=== PATIENT | female | born 1955 | race Caucasian/White ===

== ENCOUNTER 2022-10-25 08:31 | Outpatient (REF) | payer MEDICARE, SELFPAY ==
[2022-10-25 11:17] LABS: MANUAL DIFF FLAG NO
[2022-10-25 11:35] LABS: Estimated Average Glucose 194 mg/dL; Hemoglobin A1c % 8.4 %
[2022-10-25 11:54] LABS: Basophils Absolute Auto 0.1 X10*3/uL (0.0-0.2); Basophils Percent Auto 0.9 % (0-2); Eosinophils Absolute Auto 0.4 X10*3/uL (0.0-0.4); Eosinophils Percent Auto 5.9 % (0-4); Hematocrit 40.7 % (37.0-47.0); Imm Gran Abs Auto 0.04 X10*3/uL (0.00-0.03); Imm Gran Pct Auto 0.6 % (0.0-0.4); Lymphocytes Percent Auto 30.2 % (20-40); Mean Corpuscular HGB Conc 31.9 g/dl (31.0-35.0); Mean Corpuscular Volume 97.1 fL (80.0-98.0); Mean Platelet Volume 10.2 fL (9.4-12.3); Monocytes Absolute Auto 0.5 X10*3/uL (0.1-1.2); Monocytes Percent Auto 8.4 % (2-11); Neutrophils Absolute Auto 3.5 x10*3/uL (2.0-8.3); Platelet Count 286 X10*3/uL (160-400); Red Blood Count 4.19 X10*6/uL (4.20-5.50); Red Cell Distribution Width 13.2 % (11.0-16.0); White Blood Count 6.5 X10*3/uL (4.8-10.8)
[2022-10-25 12:16] LABS: Creatinine Urine 100.54 mg/dL; Microalbum/Creatinine Ratio Ur 8.9 ug/mg cr
[2022-10-25 12:28] LABS: Alanine Aminotransferase 21 U/L (0-31); Alkaline Phosphatase 79 U/L (39-117); Anion Gap 14 (12-20); Aspartate Amino Transferase 13 U/L (5-31); Bilirubin Total 0.5 mg/dL (0.0-1.0); Blood Urea Nitrogen 21 mg/dL (9-16); Calcium 9.3 mg/dL (8.4-10.2); Carbon Dioxide 24 mmol/L (22-29); Chloride 109 mmol/L (96-108); Cholesterol 232 mg/dL; Estimated Glomerular Filt Rate > 60; Glucose Fasting 189 mg/dL (60-99); HDL Cholesterol 47 mg/dL; LDL Cholesterol Calculated 160 mg/dl; Potassium 4.5 mmol/L (3.3-5.1); Sodium 142 mmol/L (135-145); Total Protein 6.7 g/dL (6.5-8.0); Triglycerides 125 mg/dL
== END 2022-10-25 08:32 | disposition home or self-care (01) ==
LOC: HO.MANLDS 08:31
PROVIDERS: Visit Provider Physician Assistant
DX: E13.9 Other specified diabetes mellitus without complications (principal)
CPT/HCPCS: 36415; 80053; 80061; 82043; 83036; 85025

== ENCOUNTER 2023-04-11 08:46 | Outpatient (REF) | payer MEDICARE, SELFPAY ==
[2023-04-11 14:14] LABS: Alanine Aminotransferase 19 U/L (0-31); Albumin Level 4.2 g/dL (3.5-5.0); Alkaline Phosphatase 61 U/L (39-117); Anion Gap 12 (12-20); Aspartate Amino Transferase 16 U/L (5-31); Bilirubin Total 0.3 mg/dL (0.0-1.0); Blood Urea Nitrogen 33 mg/dL (9-16); Calcium 10.3 mg/dL (8.4-10.2); Carbon Dioxide 24 mmol/L (22-29); Chloride 111 mmol/L (96-108); Estimated Glomerular Filt Rate 42; Glucose Random 130 mg/dL (60-115); Potassium 4.7 mmol/L (3.3-5.1); Sodium 142 mmol/L (135-145); Total Protein 7.1 g/dL (6.5-8.0)
[2023-04-11 14:35] LABS: Estimated Average Glucose 123 mg/dL; Hemoglobin A1c % 5.9 % (<6.0)
== END 2023-04-11 08:47 | disposition home or self-care (01) ==
LOC: HO.MANLDS 08:46
PROVIDERS: Visit Provider Physician Assistant
DX: E11.9 Type 2 diabetes mellitus without complications (principal)
CPT/HCPCS: 36415; 80053; 83036

== ENCOUNTER 2024-06-14 09:17 | Outpatient (REF) | payer MEDICARE, SELFPAY ==
[2024-06-14 10:49] LABS: Basophils Absolute Auto 0.1 X10*3/uL (0.0-0.2); Eosinophils Absolute Auto 0.3 X10*3/uL (0.0-0.4); Eosinophils Percent Auto 4.5 % (0-4); Hematocrit 40.1 % (37.0-47.0); Imm Gran Abs Auto 0.03 X10*3/uL (0.00-0.03); Imm Gran Pct Auto 0.4 % (0.0-0.4); Lymphocytes Absolute Auto 2.4 X10*3/uL (1.2-4.9); Lymphocytes Percent Auto 34.4 % (20-40); MANUAL DIFF FLAG NO; Mean Corpuscular HGB Conc 32.4 g/dl (31.0-35.0); Mean Corpuscular Hemoglobin 30.9 pg (27.0-33.0); Mean Corpuscular Volume 95.2 fL (80.0-98.0); Mean Platelet Volume 9.7 fL (9.4-12.3); Monocytes Absolute Auto 0.5 X10*3/uL (0.1-1.2); Monocytes Percent Auto 7.6 % (2-11); Neutrophils Absolute Auto 3.6 x10*3/uL (2.0-8.3); Neutrophils Percent Auto 52.1 % (45-73); Platelet Count 289 X10*3/uL (160-400); Red Blood Count 4.21 X10*6/uL (4.20-5.50); Red Cell Distribution Width 12.8 % (11.0-16.0); White Blood Count 6.9 X10*3/uL (4.8-10.8)
[2024-06-14 11:33] LABS: Estimated Average Glucose 174 mg/dL; Hemoglobin A1c % 7.7 % (<6.0); Total Hemoglobin (HGBA1C) 3376.9875 umol/L
[2024-06-14 11:51] LABS: Alanine Aminotransferase 26 U/L (0-31); Albumin Level 4.3 g/dL (3.5-5.0); Alkaline Phosphatase 71 U/L (39-117); Anion Gap 17 (12-20); Aspartate Amino Transferase 25 U/L (5-31); Bilirubin Total 0.5 mg/dL (0.0-1.0); Blood Urea Nitrogen 26 mg/dL (9-16); Carbon Dioxide 19 mmol/L (22-29); Chloride 108 mmol/L (96-108); Cholesterol 236 mg/dL (<200); Estimated Glomerular Filt Rate 59; Glucose Random 138 mg/dL (60-115); HDL Cholesterol 49 mg/dL (>40); LDL Cholesterol Calculated 160 mg/dL (<100); Potassium 4.6 mmol/L (3.3-5.1); Sodium 139 mmol/L (135-145); Total Protein 7.6 g/dL (6.5-8.0); Triglycerides 136 mg/dL (<150)
== END 2024-06-14 09:18 | disposition home or self-care (01) ==
LOC: HO.LAB 09:17
PROVIDERS: PCP Internal Medicine; Visit Provider Physician Assistant
DX: E11.9 Type 2 diabetes mellitus without complications (principal)
CPT/HCPCS: 36415; 80053; 80061; 83036; 85025

== ENCOUNTER 2024-09-16 14:37 | Outpatient (REF) | payer MEDICARE, SELFPAY ==
--- OUTSIDE RECORDS SUMMARY | 2024-09-16 15:56 | XMS_ITS ---
Author Organization [facility] Address [address] [address] Care Team Providers Care Earthmoving Labourer Name Role Phone JOSEPH HARDWICK Primary Care Provider BRIGETTE Addison [phone] REASON FOR VISIT Urine results Encounters Encounter Location Date Provider Diagnosis [facility] [address] [place] [phone] 06/19/2023 BRIGETTE FERNANDO Plan Of Treatment No Information Progress Notes * JOSE RAFAEL URBINAEDOB:1955 (68 yo F)Acc No.[id number]:06/19/2023 Patient:?KIZZY URBINA :1955???Age:68 Y???Sex:Female Address:[address] [facility], [place], [address] * true * Date:? Generated for Apolinari darian/Jeanine/eTransmitting on:?09/16/2024 03:56 PM EST
--- OUTSIDE RECORDS SUMMARY | 2024-09-16 15:56 | XMS_ITS ---
Author Organization [facility] Address [address] [address] Care Team Providers Care Calender Inspector Name Role Phone JOSEPH HARDWICK Primary Care Provider BRIGETTE Addison [phone] REASON FOR VISIT ? UTI Encounters Encounter Location Date Provider Diagnosis [facility] [address] [place] [phone] 06/16/2023 BRIGETTE FERNANDO Plan Of Treatment No Information Progress Notes * JOSE RAFAEL URBINAEDOB:1955 (68 yo F)Acc No.[id number]:06/16/2023 Patient:?KIZZY URBINA :1955???Age:68 Y???Sex:Female Address:[address] [facility], [place], [address] * true * Date:? Generated for Apolinari darian/Jeanine/eTransmitting on:?09/16/2024 03:56 PM EST
--- OUTSIDE RECORDS SUMMARY | 2024-09-16 15:56 | XMS_ITS | Encounter Summary ---
Author Organization [facility] Address [address] [place] [address] Care Team Providers Care Installation And Service Technician Name Role Phone Richie Cora NOLEN Primary Care Provider [phone] Encounter Details Date Type Department Care Team (Late st Contact Info) Description 05/18/2021 Abstract [facility] [place] [address] [place], [place] [id number] External, Provider Social History Tobacco Use Types Packs/Day Years Used Date Smoking Tobacco: Former Cigarettes Q uit: 1982 Smokeless Tobacco: Never Alcohol Use Standard Drinks/Week Comments Never 0 (1 standard drink = 0.6 oz pur e alcohol) AUDIT-C Answer Date Recorded Q1: How often do you have a drink containing alc ohol? Never 05/07/2020 Average Number of Drinks Not on file 020 Frequency of Binge Drinking Not on file 08/2019 PHQ-2 Answer Date Recorded PHQ-2 Total Score 0 05/07/2020 Comments No Sex and Gender Information Value Date Recorded Sex Assigned at Not on file Legal Sex Female 11:01 AM EDT Gender Identity Not on file Sexual Orientation Not on file documented as of this encounter Plan of Treatment Not on file documented as of this encounter Visit Diagnoses Not on filedocumented in this encounter Additional Health Concerns Infection Onset Date Last Indicated Resolved Time Rotavirus 11/12/2021 11/12/2021 11/13/2021 7:18 PM EDT Assessment Noted Time PHQ-9 Depression Total Score: 0 05/07/20 10:54 AM EDT documented as of this encounter Care Teams Installation And Service Technician Relationship Specialty Start Date End Date Cora Quiroz APRN [address] [place] [address] [place] [address] PCP - General Family Medicine 05/07/20 05/26/22 documented as of this encounter
--- OUTSIDE RECORDS SUMMARY | 2024-09-16 15:56 | XMS_ITS | Patient Health Record ---
Author Organization [facility] Address [address] [facility] [address] [place] [address] Care Team Providers Care Automotive Buyer Name Role Phone JOSEPH HARDWICK Primary Care Provider BRIGETTE Addison Unavailable [phone] Allergies No Known Allergies Reason For Referral No Information Medications Medication SIG (Take, Route, Frequency, Duration) Notes Start Date End Date Status Bactrim DS 800-160 MG 1 tablet Orally Tw ice a day for 3 days 06/16/2023 Active Estrace 0.1 MG/GM 1 gram Vaginal twice weekly for 90 days Active Clotrimazole-Betamethasone 1-0.05 % 1 application Externally Twice a day for 10 days 06/13/2023 Active ALPRAZolam 1 MG 1/2 tablet Orally On ce a day Active Glimepiride 1 MG 1 tablet with breakf ast or the first main meal of the day Orally Once a day for 30 day(s) Active Lisinopril 20 MG 1 tablet Orally Once a day for 30 day(s) Active Propranolol HCl ER 160 MG 1 capsule Oral ly Once a day for 30 day(s) Active Gabapentin 100 MG 1 capsule Orally Onc e a day for 30 day(s) Active Social History Tobacco Use: Social History Observation Description Date Details (start date - stop date) Former Smoker NA - NA Tobacco Use/Smoking Question Answer Notes Are you a former smoker How long has it been since you last smoked? > 10 years Alcohol Screen (Audit-C) Question Answer Notes Did you have a drink containing alcohol in the p ast year? No Points 0 Interpretation Negative Sexual History Question Answer Notes Had sex in the past 12 months (vaginal, oral, or anal)? No Have you ever had a Sexually transmitted disease ? 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 Plan Of Treatment Pending Test Test Name Order Date Urinalysis 08/13/2019 PELVIC ULTRASOUND W/TRANSVAGINAL 020 Insurance Providers Payer Name Payer Address Payer Phone Subscriber Number Group Number Insured Name Patient Relationship to Insured Coverage Start Date Coverage End Date BCBS MEDICARE PPO [address] [place] [address] [phone] [id number] KIZZY URBINA Self - patient is the insured Medical (General) History Medical History History ICD Code Diverticulosis of intestine, part unspecified, without perforation or abscess without bleeding K57.90 Type 2 diabetes mellitus with unspecifie d complications E11.8 Headache R51 Essential (primary) hypertension I10 Surgical History Surgery Date(Month/Year) Appendectomy 1964 Tonsillectomy 1960's x 1 1985 Hysterectomy 1992 Breast Biopsy Colonoscopy 2013 Hospitalization History Reason Date(Month/Year) 1 Vaginal Delivery See Surgical Hx
--- OUTSIDE RECORDS SUMMARY | 2024-09-16 15:57 | XMS_ITS | Encounter Summary ---
Author Organization [facility] Address [address] [place] [address] Care Team Providers Care Range Mechanic Name Role Phone Richie Cora NOLEN Primary Care Provider [phone] Encounter Details Date Type Department Care Team (Late st Contact Info) Description 08/19/2021 Abstract [facility] [place] [address] [place], [place] [phone] External, Provider Social History Tobacco Use Types [...] documented as of this encounter Care Teams Range Mechanic Relationship Specialty Start Date End Date Cora Quiroz APRN [address] [place] [address] [place] [address] PCP - General Family Medicine 05/07/20 05/26/22 documented as of this encounter
--- OUTSIDE RECORDS SUMMARY | 2024-09-16 15:57 | XMS_ITS | Encounter Summary ---
Author Organization [facility] Address [address] [place] [address] Care Team Providers Care Dermatologist Managing Partner Name Role Phone Richie Cora TAMANNA Primary Care Provider [phone] Encounter Details Date Type Department Care Team (Late st Contact Info) Description 09/15/2021 Scanned Document [facility] [address] [address] External, Provider Social History Tobacco Use Types [...] documented as of this encounter Care Teams Dermatologist Managing Partner Relationship Specialty Start Date End Date Cora Quiroz APRN [address] [place] [address] [place] [address] PCP - General Family Medicine 05/07/20 05/26/22 documented as of this encounter
--- OUTSIDE RECORDS SUMMARY | 2024-09-16 15:57 | XMS_ITS ---
Author Organization [facility] Address [address] [facility] [address] [place] [address] Care Team Providers Care Commercial Roofer Name Role Phone JOSEPH HARDWICK Primary Care Provider BRIGETTE Addison Unavailable [phone] Allergies No Known Allergies Results Component Value Reference Range Notes Urinalysis Reviewed date:06/16/2023 02:50:57 PM Interpretation: Performing Lab: Notes/Report: NITRITE POS PH 5.0 PROTEIN TRACE S.G 1.015 WBC MOD GLUCOSE NEG KETONES NEG UROBILINOGEN NEG BILIRUBIN NEG BLOOD NEG URINE CULTURE Reviewed date:06/19/2023 08:35:38 AM Interpretation: Performing Lab:Testing performed or reported by [facility], a Service of [facility], [address] [place] [address] Akash Silverman MD, Dye Weigher Helper [facility]# [id number] Notes/Report: SPECIMEN DESCRIPTION URINE SPECIAL REQUESTS NONE CULTURE Mixed bacterial sierra a, indicative of urogenital contamination. REPORT STATUS FINAL 06/18/2023 REASON FOR VISIT ? UTI Medications Medication SIG (Take, Route, Frequency, Duration) Notes Start Date End Date Status ALPRAZolam 1 MG 1/2 tablet Orally On [...] e a day for 30 day(s) Active Bactrim DS 800-160 MG 1 tablet Orally Tw ice a day for 3 days 06/16/2023 Active Estrace 0.1 MG/GM 1 gram Vaginal twice weekly for 90 days Active Clotrimazole-Betamethasone 1-0.05 % 1 application Externally Twice a day for 10 days 06/13/2023 Active Social History Tobacco Use: Social History [...] ast year? No Points 0 Interpretation Negative Vital Signs Temperature 96.7 degrees Fahrenheit 06/16/20 23 Blood pressure systolic 100 mm Hg 06/16/20 23 Blood pressure diastolic 70 mm Hg 023 Height 66 in 06/16/2023 Weight 190 lbs 06/16/2023 BMI 30.66 kg/m2 06/16/2023 Encounters Encounter Location Date Provider Diagnosis [address] [address] 06/16/2023 BRIGETTE FERNANDO Dysuria R30.0 Assessments Encounter Date Diagnosis (ICD Code) Assessment Notes Treatment Notes Treatment Clinical Notes Section Notes 06/16/2023 Dysuria (ICD-10 - R30.0) plenty of fluids orally , AZO as needed , Tylenol 3-4 times a day as needed , Call if not better 06/16/2023 Other Plan Of Treatment Medication Medication Name Sig Start Date Stop Date Notes Bactrim DS 800-160 MG 1 tablet Orally Tw ice a day for 3 days 06/16/2023 Treatment Notes Assessment Notes Dysuria plenty of fluids ora lly , AZO as needed , Tylenol 3-4 times a day as needed , Call if not better Next Appt Details Follow Up: prn, Reason: Progress Notes * STELLA URBINASHAUNEDOB:1955 (68 yo F)Acc No.[id number]:06/16/2023 PROGRESS NOTES Patient:?KIZZY URBINA Provider:?BRIGETTE FERNANDO MD :1955???Age:68 Y???Sex:Female D ate:06/16/2023 Address:[address] [place] [address], [id number] Pcp:JOSEPH HARDWICK Subjective: * Chief Complaints: * ? UTI * HPI: ???SUBSEA ENGINEER (Problems):?68 year old female presents with c/o Urinary Tract Infection (symptoms of):?Describes problems as:?dysuria , mostly noted at the conclusion of voiding ?Date of onset:?about a week ago ?Onset and progression of problem:?has progressively worsened, has happened in the past ?Associated signs and symptoms:?None ? She reports the vaginal burning is improved, but now she has dysuria. ?She used AZO last night, but the urine still shows leuks. * ROS:?General/Constitutional:?Denies?Chills.?Denies?Fever.?Women Only:?Patient denies?new sexual partners.?Denies?Painful intercourse.?Denies?Vaginal discharge/itching.?Genitourinary:?Admits?Abdominal pain/swelling.?Denies?Blood in urine.?Admits?Difficulty urinating.?Admits?Frequent urination.?Denies?Pain in lower back.?Admits?Painful urination.? * Medical History:? * Behavioral Health Care Manager History:?/ Para?2/2.?Sexual activity?not currently sexually active.?Last Pap Smear:?2012.?Mammogram:?2018.?LMP and menses?Hyst.?Colonoscopy?2013.? * OB History:?Total pregnancies?2.?Total living children?2.?NVD?1.?(s)?1.? * Surgical History:?Appendecto my 1964Tonsillectomy 1960'sC-Section x 1 1985Hysterectomy 1993Breast Biopsy Colonoscopy 2013 * Hospitalization/Major Diagno stic Procedure:?1 Vaginal Delivery See Surgical Hx * Family History:?Mother: silverio barfield, heart stent.?Father: , mesothelioma, lung cancer.?1 sister(s) - healthy. .? * Social History:?Tobacco Use:?Tobacco Use/Smoking?Are you a?former smoker ?How long has it been since you last smoked??> 10 years ???Drugs/Alcohol:?Drugs?Have you used drugs other than those for medical reasons in the past 12 months??No ?Alcohol Screen (Audit-C)?Did you have a drink containing alcohol in the past year??No ?Points?0 ?Interpretation?Negative ???Miscellaneous:?Children: yes, 2. ?Exercise: yes, Occ walking. ?Home smoke detector use: yes. ?Living with: spouse. ?Marital status: . ?Natural support system: yes. ?Occupation: Retired. ?no Sexually active, monogamous relationship. * Medications:?TakingGabapenti n 100 MG Capsule 1 capsule Orally Once a dayPropranolol HCl ER 160 MG Capsule Extended Release 24 Hour 1 capsule Orally Once a dayLisinopril 20 MG Tablet 1 tablet Orally Once a dayGlimepiride 1 MG Tablet 1 tablet with breakfast or the first main meal of the day Orally Once a dayALPRAZolam 1 MG Tablet 1/2 tablet Orally Once a dayClotrimazole-Betamethasone 1-0.05 % Cream 1 application Externally Twice a dayEstrace 0.1 MG/GM Cream 1 gram Vaginal twice weeklyTaking Gabapentin 100 MG Capsule 1 capsule Orally Once a dayTaking Propranolol HCl ER 160 MG Capsule Extended Release 24 Hour 1 capsule Orally Once a dayTaking Lisinopril 20 MG Tablet 1 tablet Orally Once a dayTaking Glimepiride 1 MG Tablet 1 tablet with breakfast or the first main meal of the day Orally Once a dayTaking ALPRAZolam 1 MG Tablet 1/2 tablet Orally Once a dayTaking Clotrimazole-Betamethasone 1-0.05 % Cream 1 application Externally Twice a dayTaking Estrace 0.1 MG/GM Cream 1 gram Vaginal twice weekly * Allergies:?N.K.D.A.no[Allerg ies Verified] Objective: * Vitals:?Ht: 66 in, Wt:190 lb s, BMI:30.66 Index, BP:100/70 mm Hg, Temp:96.7 F. * Examination: ???General Examination: ?GENERAL APPEARANCE:? pleasant, well nourished, in no acute distress, supplier quality engineer present in room.?ABDOMEN:?soft, nontender, nondistended, bowel sounds present, no masses palpable, no hepatosplenomegaly.?BACK:?normal, no costovertebral angle tenderness.? Assessment: * Assessment: 1.?Dysuria - R30.0 (Primary) ? Plan: * Treatment: ? Value Reference Range ?CULTURE Mixed bacterial sierra a, indicative of urogenital contamination. - * ?REPORT STATUS FINAL 06/18/2023 - * ?SPECIAL REQUESTS NONE - * ?SPECIMEN DESCRIPTION URINE - * FERNANDOBRIGETTE She 06/19/2023 8 :33:25 AM > Message left on voicemail - urine contaminated, but she was treated with Bactrim. Advised to call if she is not better, for a repeat urine culture. Otherwise, if she is better, no need to call.This lab was reviewed by BRIEGTTE FERNANDO on 06/19/2023 at 08:35 AM EST ?LAB: Urinalysis* ? Value Reference Range ?NITRITE POS * ?PH 5.0 * ?PROTEIN TRACE * ?S.G 1.015 * ?WBC MOD * ?GLUCOSE NEG * ?KETONES NEG * ?UROBILINOGEN NEG * ?BILIRUBIN NEG * ?BLOOD NEG * ELIS Dorsey 06/16/2023 1:17:29 PM >FERNANDOBRIGETTE She 06/16/2023 2:50:29 PM > Notes: plenty of fluids orally , AZO as needed , Tylenol 3-4 times a day as needed , Call if not better??2.?Others? Start Bactrim DS Tablet, 800-160 MG, 1 tablet, Orally, Twice a day, 3 days, 6 Tablet, Refills 0. ? * Procedure Codes:? * Follow Up:?prn * Images: Billing Information: * Visit Code:? 49729 Office Visit, Est Pt., Level 3. * Procedure Codes:? * Sign off status: Completed true * Provider:?BRIGETTE FERNANDO MD Date:?2022 Generated for Rigo farmer/Jeanine/eTransmitting on:?09/16/2024 03:56 PM EST History and Physical Notes * HPI (History of Present Illness) Category Sub-Category Detail Notes Category Not es SUBSEA ENGINEER (Problems) Urinary Tract Infection (symptoms of): Describes problems as:: dysuria , mostly noted at the conclusion of voiding She reports the vaginal burning is improved, but now she has dysuria. She used AZO last night, but the urine still shows leuks. Date of onset:: about a week ago Onset and progression of pro blem:: has progressively worsened, has happened in the past Associated signs and symptoms:: None Examination Category Sub-Category Detail Notes Category Not es General Examination GENERAL APPEARANCE: pleasant , well nourished, in no acute distress, supplier quality engineer present in room ABDOMEN: soft, nontender, non distended, bowel sounds present, no masses palpable, no hepatosplenomegaly BACK: normal, no costovert ebral angle tenderness
--- OUTSIDE RECORDS SUMMARY | 2024-09-16 15:57 | XMS_ITS | Encounter Summary ---
Author Organization [facility] Address [address] [place] [address] Care Team Providers Care Spring Inspector Name Role Phone Richie Cora TAMANNA Primary Care Provider [phone] Encounter Details Date Type Department Care Team (Late st Contact Info) Description 09/13/2021 Scanned Document [facility] [address] [address] External, Provider Social History Tobacco Use Types [...] documented as of this encounter Care Teams Spring Inspector Relationship Specialty Start Date End Date Cora Quiroz APRN [address] [place] [address] [place] [address] PCP - General Family Medicine 05/07/20 05/26/22 documented as of this encounter
--- OUTSIDE RECORDS SUMMARY | 2024-09-16 15:57 | XMS_ITS | Clinical Summary ---
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 Use as instructed 50 strip 3 1 Active propranoloL LA (INDERAL LA) 160 mg 24 hr capsuleIndicatio ns:for migraines Take 1 capsule (160 mg total) by mouth daily. 90 capsule 1 2 Active lisinopriL (PRINIVIL,ZESTRI L) 20 mg tabletIndication s:Hypertension, unspecified type Take 1 tablet (20 mg total) by mouth daily. 90 tablet 1 2 Active SITagliptin (JANUVIA) 100 mg tabletIndication s:Type 2 diabetes mellitus without complication, without long-term current use of insulin (HC Code) (HC CODE) (HC Code) Take 1 tablet (100 mg total) by mouth daily. 90 tablet 1 2 Active dapagliflozin (FARXIGA) 5 mg tablet Take 1 tablet (5 mg total) by mouth daily. 90 tablet 1 2 Active ALPRAZolam (XANAX) 0.5 mg tabletIndication s:pt states she takes half Take 1 tablet (0.5 mg total) by mouth nightly. 90 tablet 2 Active gabapentin (NEURONTIN) 100 mg capsuleIndicatio ns:Nerve pain Take 1 capsule (100 mg total) by mouth 3 (three) times daily with meals. 90 capsule 1 2 Active glimepiride (AMARYL) 4 mg tabletIndication s:Type 2 diabetes mellitus without complication, without long-term current use of insulin (HC Code) (HC CODE) (HC Code) Take 1 tablet (4 mg total) by mouth daily before breakfast. 90 tablet 1 2 Active Active Problems No known active problems Immunizations Name Administration Dates Next Due COVID-19, MODERNA 12Y+, 0.5 mL 10/18/2020,2020 Influenza, high dose, quad, 0.7 mL, preservative free 05/27/2021,05/07/2020 Family History Medical History Relation Name Comments Arthritis Father Cancer Father Hearing loss Father Hypertension Father Kidney disease Father Diabetes Maternal Uncle Diabetes Mother Heart disease Mother High cholesterol Mother Hypertension Mother Drug abuse Son Relation Name Status Comments Father lung cancer (me sothelioma) Maternal Uncle Mother Son Social History Tobacco Use Types Packs/Day Years [...] Answer Date Recorded PHQ-2 Total Score 0 01/27/2022 Comments No Sex and Gender Information Value Date Recorded Sex Assigned at Not on file Legal Sex Female 11:01 AM EDT Gender Identity Not on file Sexual Orientation Not on file Last Filed Vital Signs Vital Sign Reading Time Taken Comments Blood Pressure 124/78 02/24/2022 11:45 AM EDT Pulse 80 02/24/2022 11:45 AM EDT Temperature 36.9 ??C (98.4 ??F) 02/24/2022 11:45 AM E DT Respiratory Rate 16 02/24/2022 11:45 AM EDT Oxygen Saturation 98% 02/24/2022 11:45 AM EDT Inhaled Oxygen Concentration - - Weight 111.1 kg (245 lb) 02/24/2022 11:45 AM EDT Height 165.1 cm (5' 5 ) 02/24/2022 11:45 AM EDT Body Mass Index 40.77 02/24/2022 11:45 AM EDT Plan of Treatment Health Maintenance Due Date Last Done Comments HIV screening 1968 Tetanus adult (Td q 10,TDAP once) 1975 Colon cancer screening, Colonoscopy 2000 Shingles vaccine (Shingrix) (1 of 2 - Shingrix (RZV) 2 Dose Standard Series) 2005 RSV Discussion (1 - Risk 60-74 years 1-dose series) 2015 Pneumo Vaccine 65+ (1 of 1 - PCV) 2020 Breast cancer screening 08/03/2023 08/03/20, 07/27/2020, 04/07/2019 Influenza vaccine 03/07/2024 05/27/2021, 05/07/2020 Covid-19 vaccine series ( season) 2024 06/22/2021, 10/18/2020, 09/20/2020 Diabetes screening 02/24/2025 02/24/2022, 0 01/12/2022, 11/25/2021, Additional history exists Lipid disorder screening 01/12/2027 01/12/2022, 1001/2020 Osteoporosis screening (bone density) Completed 07/27/2020 Hepatitis C screening Completed 01/12/2022 Cervical cancer screening Discontinued Meningococcal Vaccine Aged Out No fazal joaquina eligible based on patient's age to complete this topic Procedures Procedure Name Priority Date/Time Associated Diagnosis Comments POCT GLYCOSYLATED HEMOGLOBIN (HGBA1C), TOTAL Routine 02/24/2022 11:57 AM EDT Type 2 diabetes mellitus without complication, without long-term current use of insulin (HC Code) (HC CODE) (HC Code) LIPID PANEL Routine 01/12/2022 8:35 AM EDT Routine medical exam HEPATITIS C AB WITH REFLEX TO HCV PCR Routine 01/12/2022 8:35 AM EDT Encounter for hepatitis C screening test for low risk patient MAMMO SCREENING ARIAN BILATERAL Routine 08/03/2021 9:52 AM EST Encounter for screening mammogram for malignant neoplasm of breast DEXA BONE DENSITY Routine 07/27/2020 2:2 2 PM EST Osteoporosis screening from Last 3 Months or Most Recently Relevant to Health Maintenance Results * (ABNORMAL) POCT glycosylated hemoglobin (HgbA1c), total (30074) (02/24/2022 11:57 AM EDT) [facility] Hemoglobin A1C, POC 8.8 4.0 - 6.0 % [facility] Test Lot Number [id number] [facility] Test Lot Exp Date 09/21/23 Date Format: MM/DD/YYYY [facility] 02/24/2022 11:5 7 AM EDT Cora Quiroz APRN POINT OF CARE TEST ORDERABLES Final Result [facility] [place], [place], [facility] * Hepatitis C Ab with reflex to HCV PCR (01/12/2022 8:35 AM EDT) Pathologist [facility] Hepatitis C Antibody Negative Negative 01/12/2022 1:55 PM EDT [facility] Blood Venipuncture / Unknown 01/12/2022 8:35 AM EDT 01/12/2022 8:35 AM EDT Cora Quiroz APRN LAB BLOOD ORDERABLES Final Res ult [facility] [address] [place] [address] * (ABNORMAL) Lipid panel (01/12/2022 8:35 AM EDT) Pathologist [facility] Cholesterol 207(H) See Comment mg/dL 01/12/2022 12:47 PM [facility] Comment: Cholesterol Reference Range: ? Desirable: ?? <200 mg/dL ? Borderline: ??200-240 mg/dL ? High Risk: ?? >240 mg/dL HDL 48 See Comment mg/dL 01/12/2022 12:47 PM [facility] Comment: HDL Reference Range: Low: <40 High: > or = 60 Triglycerides 123 See Comment mg/dL 01/12/2022 12:47 PM [facility] Comment: Triglyceride Reference Range: ?Normal: ? <150 mg/dL ?Borderline High: ??150-199 mg/dL ?High: ? 200-499 mg/dL ?Very High: ?>or= 500 mg/dL LDL Calculated 134(H) See Comment mg/dL 01/12/2022 12:47 PM [facility] Comment: LDL Reference Range: Optimal: ? <100 mg/dL Near/Above Optimal: ??100-129 mg/dL Borderline High: ? 130-159 mg/dL High: ?160-189 mg/dL Very High: ? >or= 190 mg/dL Blood Venipuncture / Unknown 01/12/2022 8:35 AM EDT 01/12/2022 8:35 AM EDT us Cora Quiroz SALES REPRESENTATIVE [employer] LAB BLOOD ORDERABLES Final Res ult Performing Organization Address City/State/[facility] Co de Phone Number [facility] [address] [place] [address] * Mammography Screening Arian Bilateral (08/03/2021 9:52 AM EST) Anatomical Region Laterality Modality Breast Bilateral Mammography 08/04/2021 11:0 2 AM EST Impressions 08/04/2021 11:19 AM EST Spot compression tomosynthesis right breast. Ultrasound if needed. Please note, a negative imaging evaluation should never overrule a strongly suspicious finding on physical exam. COMMENTS: LATERALITY Left BI-RADS Birad 0 - Incomplete - needs additional imaging evaluation and/or comparison RECOMMENDATION Additional views DENSITY D2-Scattered fibroglandular Reported and signed by: ??Elinor Guallpa MD Narrative 08/04/2021 11:19 AM EST MAMMO SCREENING ARIAN BILATERAL HISTORY: SCREENING. ??History of benign right breast biopsy. COMPARISON: 07/27/2020, 04/26/2019, 02/25/2018, 09/21/2016, 01/30/2015 TECHNIQUE: Standard CC and MLO tomosynthesis, with Hologic electronically generated C-view and R2 computer-aided detection (CAD). FINDINGS: Stable biopsy clip upper outer right breast. Focal asymmetry anterior depth left breast in the superior periareolar region. There are also small circumscribed appearing retroareolar nodules. Further assessment of these findings with spot compression tomosynthesis recommended. Ultrasound if needed. Additional subtle scattered nodularity within bilateral breasts unchanged compared to multiple prior mammograms. Procedure Note Elinor Guallpa MD - 08/04/2021 MAMMO SCREENING ARIAN BILATERAL HISTORY: SCREENING. History of benign right breast biopsy. COMPARISON: 07/27/2020, 04/26/2019, 02/25/2018, 09/21/2016, 01/30/2015 TECHNIQUE: Standard CC and MLO tomosynthesis, with Hologic electronicallygenerated C-view and R2 computer-aided detection (CAD). FINDINGS: Stable biopsy clip upper outer right breast. Focal asymmetry anterior depth left breast in the superior periareolarregion. There are also small circumscribed appearing retroareolar nodules.Further assessment of these findings with spot compression tomosynthesisrecommended. Ultrasound if needed. Additional subtle scattered nodularity within bilateral breasts unchangedcompared to multiple prior mammograms. IMPRESSION: Spot compression tomosynthesis right breast. Ultrasound if needed. Please note, a negative imaging evaluation should never overrule astrongly suspicious finding on physical exam. COMMENTS: LATERALITY Left BI-RADS Birad 0 - Incomplete - needs additional imaging evaluation and/orcomparison RECOMMENDATION Additional views DENSITY D2-Scattered fibroglandular Reported and signed by: Elinor Guallpa MD Cora Malagonvj [facility] IMG MAMMOGRAPHY ORDERABLES Fin al Result * Dexa Bone Density (07/27/2020 2:22 PM EST) [facility] MAC ADDRESS [facility] ZIP [facility] Anatomical Region Laterality Modality Radiographic Esperanza ging 07/27/2020 3:02 PM EST Narrative 07/27/2020 3:02 [place] [address] DEXA BONE DENSITY PIEDAD URBINA ? Sex: F ??: [id number] ?? Service Date: 2020-07-27 14:11:00 DXA WITHOUT PRIOR FOR COMPARISON CLINICAL INDICATION: osteoporosis screening Bone Densitometry was performed with Hologic Bone Densitometer. This is the patient's baseline exam. AP Studies of the lumbar spine and right hip. Lumbar Spine T Score is -0.3 which is normal Total Hip T Score is -0.1 which is normal Femoral Neck T Score is -0.1 which is normal = 10-year Fracture Risk Major osteoporotic fracture: Not reported Hip fracture: Not reported 10-year fracture risk is not reported because: All T-scores at or above -1.0. IMPRESSION: Normal T scores as described above. Postmenopausal women and men aged 50 years or older with low bone mass (T-score between -1.0 and -2.5) and a 10-year probability of a hip fracture of greater than or equal to 3% or a ??10 year probability of a major osteoporosis related fracture greater than or equal to 20% could be considered for FDA-approved medical therapy. [email or web address] Signed By: Keith Meadows MD, 15:02:09 Procedure Note Keith Meadows MD - 07/27/2020 [place] [address] DEXA BONE DENSITY PIEDAD URBINA Sex: F : [id number] Service Date: 2020-07-27 14:11:00 DXA WITHOUT PRIOR FOR COMPARISON CLINICAL INDICATION: osteoporosis screening Bone Densitometry was performed with Hologic Bone Densitometer. This is the patient's baseline exam. AP Studies of the lumbar spine and right hip. Lumbar Spine T Score is -0.3 which is normal Total Hip T Score is -0.1 which is normal Femoral Neck T Score is -0.1 which is normal = 10-year Fracture Risk Major osteoporotic fracture: Not reported Hip fracture: Not reported 10-year fracture risk is not reported because: All T-scores at or above -1.0. IMPRESSION: Normal T scores as described above. Postmenopausal women and men aged 50 years or older with low bone mass (T-score between -1.0 and -2.5) and a 10-year probability of a hip fracture of greater than or equal to 3% or a 10 year probability of a major osteoporosis related fracture greater than or equal to 20% could be considered for FDA-approved medical therapy. [email or web address] Signed By: Keith Meadows MD, 15:02:09 Cora Quiroz APRN IMG DEXA ORDERABLES Final Resu lt from Last 3 Months or Most Recently Relevant to Health Maintenance Insurance [address] [place] [address] [facility]
[2024-09-16 18:17] LABS: Appearance Urine Clear; Color Urine Yellow; Glucose Urine UA Negative (Negative); Leukocyte Esterase Urine Negative (Negative); Nitrite Urine Negative (Negative); Specific Gravity - Urine 1.025 (1.005-1.025); Urine Blood Negative (Negative); Urine Ketones Negative (Negative); Urine Protein Negative (Neg-Trace)
[2024-09-16 18:48] LABS: Bacteria Urine None Seen (None Seen); Calcium Oxalate Crystals Urine Present; Hyaline Casts Urine 0-2 /LPF (0-2); RBC Urine 0-2 /HPF (0-2); WBC Urine 0-5 /HPF (0-5)
== END 2024-09-16 14:38 | disposition home or self-care (01) ==
LOC: HO.MANLDS 14:37
PROVIDERS: Visit Provider Internal Medicine
DX: R30.9 Painful micturition, unspecified (principal)
CPT/HCPCS: 81001

== ENCOUNTER 2024-11-13 12:15 | Outpatient (REF) | payer MEDICARE, SELFPAY ==
[2024-11-13 13:34] LABS: Appearance Urine Clear; Color Urine Yellow; Glucose Urine UA 250 mg/dL (Negative); Leukocyte Esterase Urine Negative (Negative); Nitrite Urine Negative (Negative); Specific Gravity - Urine 1.015 (1.005-1.025); Urine Blood Negative (Negative); Urine Ketones Negative (Negative); Urine Protein Negative (Neg-Trace)
[2024-11-13 13:41] LABS: Bacteria Urine None Seen (None Seen); Hyaline Casts Urine 0-2 /LPF (0-2); RBC Urine 0-2 /HPF (0-2); Squamous Epithelial Cell Urine 0-2 /HPF (0-2); WBC Urine 0-5 /HPF (0-5)
--- OUTSIDE RECORDS SUMMARY | 2024-11-13 14:16 | XMS_ITS ---
Author Name [facility] History of Medication Use Medication Directions Dispensed Refills Start Date End Date Stat us propranolol (capsule,extended release 24 hr) 160 mg completed alprazolam (tablet) 0.5 mg comp leted glimepiride (tablet) 4 mg com pleted gabapentin (capsule) 100 mg com pleted Linzess (capsule) 145 mcg comple perla lisinopril (tablet) 20 mg comp leted Encounters Encounter Type Encounter Reason Primary Diagnosis Location Date Ambulatory [facility] 10/[address] [facility] 04/09 Emergency Nausea with vomiting [facility] 11/12/2021 Care Team Organization Name Specialty Phone Email Start Date End Da [facility] 04/02/2024 [facility] BESSIE HARKINS Primary Care 11/12/2021
--- OUTSIDE RECORDS SUMMARY | 2024-11-13 14:16 | XMS_ITS | Continuity of Care Document ---
Author Organization [facility], [facility] Address [address] [facility] [facility] [address] [place] [address] [place] [address] Assessment No assessment recorded. Plan of Treatment Reminders Order Date Submit Date Provider Last Modified By Organization Details Last Modified Time Details Appointments SDV 2024 11:30A M CHRISTINA PERRY Not available Not available Not available FOLLOW UP 15 2024 09:45A M CHRISTINA PERRY Not available Not available Not available Lab urinalysi s, dipstick 2024 025 [facility], [address], [address], [place], [address], 11/13/2024 12:53:40 urinalysi s complete, reflex culture 2024 025 [facility], [address] [place] [address], [id number], 11/13/2024 11:48:19 CMP, serum or plasma 2024 025 [facility], [address] [place] [address], [id number], 11/13/2024 11:56:06 hemoglobi n A1c, QN, blood 2024 025 [facility], [address] [place] [address], [id number], 11/13/2024 11:56:07 CBC w/ auto diff 2024 025 [facility], [address] [place], [address], 11/13/2024 11:56:06 Referral None recorded. Procedures None recorded. Surgeries None recorded. Imaging None recorded. Medication Orders trazodone 50 mg tablet 2024 025 [id number], [address] [place], [address], 11/13/2024 12:05:38 cephalexi n 500 mg capsule 2024 025 [id number], [address] [place], [address], 11/13/2024 12:03:42 Patient TargetsNo targets recorded. Patient InstructionsNo instructions recorded. Reason for Referral None Reported. Results Created Date Observation Date Name Description Value Unit Range Abnormal Flag Note LastModifiedBy Organization Detail LastModifiedTime Result Notes None recorded. Problems Name Problem SNOMED Code Status Onset Date Resolution Date Notes Provider Name and Address Organization Details Recorded Time Mixed hyperlip idemia 610650574 Active 2018 Not Available [facility] 3 12:53:23 Atrophic vaginiti s 39972490 Active 2018 Not Available [facility] 3 12:53:23 Gastroes ophageal reflux disease 566082908 Active 2021 Not Available [facility] 3 12:53:23 Type 2 diabetes mellitus 98053439 Active 2022 Not Available [facility] 3 12:53:23 Bilatera l carpal tunnel syndrome 93873031805 838478 Active 2022 Not Available [facility] 3 12:53:23 Squamous cell carcinom a 130033700 Active 2022 Not Available [facility] 3 12:53:23 Candidia sis of vagina 18215567 Active 2022 Not Available [facility] 3 12:53:23 Gastro-e sophagea l reflux disease with esophagi tis 154865988 Active 2024 CHRISTINA PERRY [address] [place], [address], [facility] 5 11:51:23 Acute urinary tract infectio n 159375626 Active 2024 CHRISTINA PERRY [address] [place], [address], [facility] 5 10:03:54 Gastropa resis syndrome 326101488 Active 2024 CHRISTINA PERRY [address] [place] [address], [address], [facility] 5 16:41:14 Dysuria 30588984 Active 2024 Dwayne Vidal DO [address] [place], [address], [facility] 5 13:13:04 Urinary crystal, calcium oxalate 275554930 Active 2024 CHRISTINA PERRY [address] [place] [address], [address], [facility] 5 11:32:45 Insomnia 999366812 Active 2024 CHRISTINA PERRY [address] [place] [address], [address], [facility] 5 11:53:41 Essentia l hyperten wan 88281289 Active 2017 Not Available [facility] 3 12:53:23 Divertic ulitis 231499978 Active 2017 Not Available [facility] 3 12:53:23 Diabetes mellitus 29888448 Active 2017 Not Available [facility] 3 12:53:23 Sciatica 80686794 Active 2017 Not Available [facility] 3 12:53:23 Recurren t urinary tract infectio n 417026169 Active 2017 Not Available [facility] 3 12:53:23 Painful urinary bladder spasm 7620047 Completed 201712/11/2017 DAPHNE Caballero [address] [place], [address], [facility] 8 10:54:35 Spasm of urinary bladder 602354789 Active 2017 Not Available [facility] 3 12:53:23 Problem Notes None recorded. Medical Equipment None Reported. Allergies Allergen ID Allergen Name Allergen Category Reaction Reaction Severity Criticality Documentation Date Start Date Code Code System Note Provider Name and Address Organization Details Recorded Time 1187 simvastat in medicatio n myalgias (muscle pain) Not available Not available 12/08/2017 28321 RxNorm Li clements [facility] 8 15:41:56 1188 metformin medicatio n diarrhea Not available Not available 12/08/2017 6809 RxNorm Li clements [facility] 8 15:42:14 8918 Cipro medicatio n Not available Not available Not available 11/13/202404595 3 RxNorm CHRISTINA PERRY [address] [place], [address], [facility] 5 11:59:03 Medications Name Sig Start Date Stop Date Status Note LastModified by Organization Details LastModified Time OneTouch Ultra Blue Test Strips test up to 4 times per day 07/25 completed Not Available Not Available Not Available amoxicillin 500 mg capsule TAKE 2 TABLETS IMMEDIATE LY THEN 1 TABLRT EVERY 8 HOURS UNTIL FINISHED 07/25 completed Not Available Not Available Not Available terconazole 0.4 % vaginal cream 07/25 completed Not Available Not Available Not Available prednisone 10 mg tablet 4 tabs x 3 days, 3 tabs x 3 days, 2 tabs x 3 days, 1 tab x 3 days 07/25 completed Not Available Not Available Not Available doxycycline hyclate 100 mg capsule TAKE 1 CAPSULE BY MOUTH TWICE DAILY WITH FOOD FOR 10 DAYS 05/24 completed Not Available Not Available Not Available propranolol ER 160 mg capsule,24 hr,extended release TAKE 1 CAPSULE BY MOUTH EVERY DAY active Not Available Not Available No t Available trazodone 50 mg tablet Take 1 tablet every day by oral route at bedtime for 30 days. 2024 active Not Available Not Available Not Avai lable pravastatin 40 mg tablet Take 1 tablet every day by oral route. 03/26 completed Not Available Not Available Not Available tramadol 37.5 mg-acetamin ophen 325 mg tablet TAKE 2 TABLETS BY MOUTH EVERY 6 HOURS NEEDED 07/25 completed Not Available Not Available Not Available fluconazole 150 mg tablet TAKE 1 TABLET BY MOUTH EVERY 72 HOURS FOR 9 DAYS 09/20 completed Not Available Not Available Not Available fluconazole 200 mg tablet Take 1 tablet every day by oral route with meal(s) for 14 days. active Not Available Not Available No t Available sucralfate 1 gram tablet TAKE 1 TABLET 4 TIMES A DAY BY ORAL ROUTE DIRECTED FOR 14 DAYS. 09/20 completed Not Available Not Available Not Available phenazopyri dine 200 mg tablet 09/11 completed Not Available Not Available Not Available lisinopril 20 mg tablet TAKE 1 TABLET BY MOUTH EVERY DAY 05/24 completed Not Available Not Available Not Available clotrimazol e 1 % vaginal cream INSERT 1 APPLICATO RFUL EVERY DAY BY VAGINAL ROUTE DIRECTED FOR 10 DAYS. active Not Available Not Available No t Available allopurinol 100 mg tablet Take 1 tablet every day by oral route for 30 days. active Not Available Not Available No t Available ciprofloxac in 500 mg tablet TAKE 1 TABLET BY MOUTH EVERY 12 HOURS FOR 10 DAYS 09/20 completed Not Available Not Available Not Available sulfamethox azole 800 mg-trimetho prim 160 mg tablet TAKE 1 TABLET BY MOUTH 2 TIMES A DAY FOR 3 DAYS. TAKE A PROBIOTIC 2 HOURS AFTER EACH DOSE. 11/13 completed Not Available Not Available Not Available omeprazole 40 mg capsule,del ayed release Take 1 capsule every day by oral route for 30 days. 04/26 completed Not Available Not Available Not Available glimepiride 1 mg tablet TAKE 2 TABLETS BY MOUTH ONCE A DAY *NEEDS APPT FOR FURTHER REFILLS 07/25 completed Not Available Not Available Not Available oxycodone-a cetaminophe n 5 mg-325 mg tablet TAKE 2 TABLETS BY MOUTH EVERY 8 (EIGHT) HOURS NEEDED. 07/25 completed Not Available Not Available Not Available alprazolam 0.5 mg tablet TAKE 1 TABLET BY MOUTH EVERY 8 HOURS IF NEEDED. active Not Available Not Available No t Available amoxicillin 875 mg tablet 12/31 completed Not Available Not Available Not Available OneTouch Ultra Test strips USE DIRECTED 1 TO 2 TIMES active Not Available Not Available No t Available cephalexin 500 mg capsule Take 1 capsule every 6 hours by oral route for 5 days. 2024 active Not Available Not Available Not Avai lable pantoprazol e 40 mg tablet,yordy yed release TAKE 1 TABLET BY MOUTH TWICE A DAY active Not Available Not Available No t Available hyoscyamine sulfate 0.125 mg tablet 03/26 completed Not Available Not Available Not Available clotrimazol e-betametha sone 1 %-0.05 % topical cream APPLY 1 APPLICATI ON EXTERNALL Y TWICE A DAY FOR 10 DAYS 05/24 completed Not Available Not Available Not Available lisinopril 10 mg tablet TAKE 1 TABLET EVERY DAY BY ORAL ROUTE, FOR HIGH BLOOD PRESSURE active Not Available Not Available No t Available glimepiride 4 mg tablet TAKE 1 TABLET BY MOUTH EVERY DAY active Not Available Not Available No t Available oxybutynin chloride ER 5 mg tablet,exte nded release 24 hr TAKE 1 TABLET BY MOUTH EVERY DAY 07/25 completed Not Available Not Available Not Available betamethaso ne, augmented 0.05 % topical ointment APPLY TWICE A DAY TO AFFECTED AREAS ON FOREARMS UP TO 2-4 WEEKS 04/26 completed Not Available Not Available Not Available omeprazole 20 mg capsule,del ayed release 03/26 completed Not Available Not Available Not Available gabapentin 100 mg capsule TAKE 1 CAPSULE BY MOUTH TWICE A DAY active Not Available Not Available No t Available ergocalcife rol (vitamin D2) 1,250 mcg (50,000 unit) capsule TAKE 1 CAPSULE BY MOUTH ONE TIME PER WEEK 04/26 completed Not Available Not Available Not Available estradiol 0.01% (0.1 mg/gram) vaginal cream INSERT 1 GRAM VAGINALLY TWICE WEEKLY active Not Available Not Available No t Available levofloxaci n 750 mg tablet 09/11 completed Not Available Not Available Not Available ondansetron 4 mg disintegrat ing tablet TAKE 2 TABLETS (8 MG TOTAL) BY MOUTH EVERY 8 (EIGHT) HOURS NEEDED FOR NAUSEA FOR UP TO 7 DAYS. 07/25 completed Not Available Not Available Not Available ciclopirox 0.77 % topical cream APPLY TO AFFECTED AREA ON BODY EVERY DAY 05/24 completed Not Available Not Available Not Available nitrofurant oin monohydrate /macrocryst als 100 mg capsule TAKE 1 CAPSULE BY MOUTH TWICE A DAY FOR 5 DAYS 09/20 completed Not Available Not Available Not Available fiber Take one tablet once a day 11/26 completed Not Available Not Available Not Available Januvia 50 mg tablet TAKE 1 TABLET BY MOUTH EVERY DAY active Not Available Not Available No t Available Januvia 100 mg tablet TAKE 1 TABLET BY MOUTH EVERY DAY active Not Available Not Available No t Available GaviLyte-G 236 gram-22.74 gram-6.74 gram-5.86 gram oral solution 12/31 completed Not Available Not Available Not Available Probiotic Take one tablet once a day 07/25 completed Not Available Not Available Not Available Yuvafem 10 mcg vaginal tablet 2 times per week 07/25 completed Not Available Not Available Not Available OneTouch Ultra Blue Test Strip USE DIRECTED 1 TO 2 TIMES A DAY 07/25 completed Not Available Not Available Not Available OneTouch Ultra2 Meter USE DIRECTED. active Not Available Not Available No t Available BinaxNOW COVID-19 Ag Self Test kit TEST DIRECTED TODAY 10/26 completed Not Available Not Available Not Available Vitals Date Recorded Body height Heart rate Oxygen saturation Oxygen saturation in Arterial blood by Pulse oximetry Systolic blood pressure Diastolic blood pressure Provider Name and Address Organization Details Last Updated DateTime 5 163.83 cm 75 /min 98 % 98 % 128 mm[Hg] 82 mm[Hg] Meli Esparza [facility] 5 11:42:16 Social History Question Answer Notes LastModified by Organizat ion Details LastModified Time Tobacco Smoking Status Former Smoker Not Available [facility] 06/09/2020 03:36:24 What Was The Date Of Your Most Recent Tobacco Screening? 11/13/2024 [email or web address] Information not available 11/13/2024 How Many Years Have You Smoked Tobacco? 2 [id number] Information not available 06/09/2020 Sex: Unknown Functional Status None recorded. Mental Status None recorded. Family History Nothing Reported. Medical History No medical history recorded. Gynecological HistoryNo gynecological history recorded. Obstetrics History GPAL:G 0 P 0 0 0 0 Immunizations Vaccine Type Date Status Note Provider Nam e and Address Organization Details Recorded Time Influenza, split virus, quadrivalent, preservative 8 completed Cordell Vidal tyree [facility] 05/10/2018 11:42:05 influenza, unspecified formulation 4 completed Meli Esparza tyree [facility] 07/03/2024 08:18:29 Past Encounters Encounter ID Performer Location Encounter Start Date Encounter Closed Date Diagnosis/Indication Diagnosis SNOMED-CT Code Diagnosis ICD10 Code Diagnosis Note [id number] CHRISTINA PERRY [facility] [address],[place] [address] 11/13/2024 11:28:09 11/13/2024 12:21:16 Dysuria 66469349 R30.0 will set up with urinalysis short course of abxwas started on estrogen cream again Insomnia 959997789 G47.0 1 will have her adjust when she takes her ativan Type 2 selma betes mellitus 61804156 E11.9 needs f/u lab workhas f/u appt next Health Concerns Section Related Observation LastModified by Organization Detai ls LastModified Time None Recorded Concern Status LastModified by Organization Details LastModified Time None Recorded Payers Encounter Date Sequence Insurance Name Policy Number Policy Roy Covered Member ID Roy Member ID Guarantor Name 11/13/2024 1 [facility]: MEDICARE PPO BLUE (MEDICARE REPLACEMENT PPO) [id number] Piedad Gorman [id number] Piedad Gorman Notes Date Note Type Note Provider Name and Address Organization Details Recorded Time 5 text/html c/o dysuria the patient is here for burning sensation and frequencywas started on the estrogen creamthe patient was doing okay for awhile cipro caused side effects, added to med list, did have good coverage for her last infection will send out urine for testing as well start on keflex 5 days only given info on supplements to take as well for the recurrent UTI's having issues with insomniawas using xanax previously but not as effectivesuggested using trazodone instead needs lab work CHRISTINA PERRY [address] [facility], [place], [address], [facility] 11/13/2024 12:28:57 OBGyn Episode No OBEpisode recorded.
--- OUTSIDE RECORDS SUMMARY | 2024-11-13 14:16 | XMS_ITS | Encounter Summary ---
Author Organization [facility] Address [address] [place] [address] Care Team Providers Care Ladle Repairer Name Role Phone Richie Cora NOLEN Primary Care Provider [phone] Encounter Details Date Type Department Care Team (Late st Contact Info) Description 08/19/2021 Abstract [facility] [place] [address] [place], [place] [id number] External, Provider Social History Tobacco Use Types [...] documented as of this encounter Care Teams Ladle Repairer Relationship Specialty Start Date End Date Cora Quiroz APRN [address] [place] [address] [place] [address] PCP - General Family Medicine 05/07/20 05/26/22 documented as of this encounter
--- OUTSIDE RECORDS SUMMARY | 2024-11-13 14:16 | XMS_ITS | Encounter Summary ---
Author Organization [facility] Address [address] [place] [address] Care Team Providers Care Patent Drafter Name Role Phone Richie Cora TAMANNA Primary Care Provider [phone] Encounter Details Date Type Department Care Team (Late st Contact Info) Description 09/15/2021 Scanned Document [facility] [address] [address] External, Provider Social History Tobacco Use Types [...] Frequency of Binge Drinking Not on file 0 08/2019 PHQ-2 Answer Date Recorded PHQ-2 Total [...] documented as of this encounter Care Teams Patent Drafter Relationship Specialty Start Date End Date Cora Quiroz APRN [address] [place] [address] [place] [address] PCP - General Family Medicine 05/07/20 05/26/22 documented as of this encounter
--- OUTSIDE RECORDS SUMMARY | 2024-11-13 14:16 | XMS_ITS ---
Author Organization [facility] Address [address] [address] Care Team Providers Care Senior Microsoft Net Developer Name Role Phone JOSEPH HARDWICK Primary Care Provider BRIGETTE Addison [phone] REASON FOR VISIT Urine results Encounters Encounter Location Date Provider Diagnosis [facility] [address] [place] [address] 06/19/2023 BRIGETTE FERNANDO Plan Of Treatment No Information Progress Notes * JOSE RAFAEL URBINAEDOB:1955 (68 yo F)Acc No.[id number]:06/19/2023 Patient:?KIZZY URBINA :1955???Age:68 Y???Sex:Female Address:[address] [place] [address], [place], [address] * true * Date:? Generated for Apolinari darian/Jeanine/eTransmitting on:?11/13/2024 02:15 PM EDT
--- OUTSIDE RECORDS SUMMARY | 2024-11-13 14:16 | XMS_ITS | Encounter Summary ---
Author Organization [facility] Address [address] [place] [address] Care Team Providers Care Senior Database Programmer Name Role Phone Richie Cora TAMANNA Primary Care Provider [phone] Encounter Details Date Type Department Care Team (Late st Contact Info) Description 09/13/2021 Scanned Document [facility] [address] [address] External, Provider Social History Tobacco Use Types [...] documented as of this encounter Care Teams Senior Database Programmer Relationship Specialty Start Date End Date Cora Quiroz APRN [address] [place] [address] [place] [address] PCP - General Family Medicine 05/07/20 05/26/22 documented as of this encounter
--- OUTSIDE RECORDS SUMMARY | 2024-11-13 14:16 | XMS_ITS ---
Author Organization [employer] [facility] Address [address] [place] [address] Care Team Providers Care Inspector Boiler Name Role Phone JOSEPH HARDWICK Primary Care Provider BRIGETTE Addison Unavailable [phone] Allergies No Known Allergies Results Component Value Reference Range Notes Urinalysis Reviewed date:10/04/2024 02:32:44 PM Interpretation: Performing Lab: Notes/Report: NITRITE neg PH 5.0 PROTEIN neg S.G 1.020 WBC neg GLUCOSE neg KETONES neg UROBILINOGEN neg BILIRUBIN neg BLOOD neg REASON FOR VISIT VAGINAL BURNING (PCP WAS TREATING) x 3 weeks Medications Medication SIG (Take, Route, Frequency, Duration) Notes Start Date End Date Status Allopurinol 100 MG 1 tablet Orally Once a day Active Pantoprazole Sodium 40 MG 1 tablet 1/2 t o 1 hour before morning meal Orally Once a day Active Fluconazole 200 MG 1 tablet Orally Active Estrace 0.1 MG/GM 1 gram Vaginal twice weekly for 90 days Active Januvia 100 MG 1 tablet Orally Once a day Active Glimepiride 4 MG 1 tablet with breakf ast or the first main meal of the day Orally Once a day for 30 days Active Lisinopril 10 MG 1 tablet Orally Once a day for 30 days Active Clotrimazole-Betamethasone 1-0.05 % 1 application Externally Twice a day for 10 days 06/13/2023 Active ALPRAZolam 0.5 MG 1/2 tablet Orally On ce a day Active Propranolol HCl ER 160 MG 1 [...] had a Sexually transmitted disease ? No Vital Signs Height 66 in 10/04/2024 Weight 214 lbs 10/04/2024 BMI 34.54 kg/m2 10/04/2024 Blood pressure systolic 112 mm Hg 10/04/19 Blood pressure diastolic 64 mm Hg 025 Temperature 98.2 degrees Fahrenheit 10/04/19 Encounters Encounter Location Date Provider Diagnosis [address] [id number] 10/04/2024 BRIGETTE FERNANDO Urgency of urination R39.15 and Postmenopausal atrophic vaginitis N95.2 Assessments Encounter Date Diagnosis (ICD Code) Assessment Notes Treatment Notes Treatment Clinical Notes Section Notes 10/04/2024 Urgency of urination (ICD-10 - R39.15) 10/04/2024 Postmenopausal atrophic vaginitis (ICD-10 - N95.2) Though my first inkling was yeast, as she is diabetic with recently elevated sugars, she has been adequately treated for yeast, and there is no evidence of yeast on wet prep. The burning continues. She hasn't used vaginal estrogen in a long time, and I suspect that some of this burning may be due to atrophic vaginitis. I recommend nightly estradiol cream x 2 weeks, then tapering to twice weekly. Plan Of Treatment Medication Medication Name Sig Start Date Stop Date Notes Estrace 0.1 MG/GM 1 gram Vaginal twice weekly for 90 days Treatment Notes Assessment Notes Postmenopausal atrophic vaginitis Though my first inkling was yeast, as she is diabetic with recently elevated sugars, she has been adequately treated for yeast, and there is no evidence of yeast on wet prep. The burning continues. She hasn't used vaginal estrogen in a long time, and I suspect that some of this burning may be due to atrophic vaginitis. I recommend nightly estradiol cream x 2 weeks, then tapering to twice weekly. Next Appt Details Follow Up: prn, Reason: Procedure Notes * Category Sub-Category Detail Notes Wet Mount Clue cells None seen Hyphae No hyphae or buds Trichomonas None seen Progress Notes * JOSE RAFAEL URBINAEDOB:1955 (69 yo F)Acc No.[id number]:10/04/2024 PROGRESS NOTES Patient:?KIZZY URBINA Provider:?BRIGETTE FERNANDO MD :1955???Age:69 Y???Sex:Female D ate:10/04/2024 Address:[address] [place] [address], [place] [address] Pcp:JOSEPH HARDWICK Subjective: * Chief Complaints: * ???VAGINAL BURNING (PCP WAS TREATING) x 3 weeks * HPI: ???DEMONSTRATOR SEWING TECHNIQUES (Problems):?Kizzy is a 69 yo who reports being treated for 3 UTIs since July - macrobid, bactrim, cipro. She reports she developed vaginal burning after the cipro and her PCP prescribed 14 days of fluconazole as well as 10 days of clotrimazole vaginal cream. She reports the symptoms have become milder, but they are still present. ?69 year old female presents with c/o Vaginitis (Symptoms of):?Location of problem:?vaginal problem vaginal burning ?Vulvar symptoms:?no vulvar symptoms ?Duration:?2.5 weeks, improving a little in the last few days ?Discharge description:?none ?Additional complaints:?none ?Potential risk factors:?reports no risk factors for sexually transmitted disease ?Aggravating risk factors:?sitting with legs together ?Previous treatment for this condition:?fluconazole, clotrimazole ? She admits to not using vaginal estrogen since her last visit here, perhaps a couple of years ago. * ROS:?General/Constitutional:?Patient denies?fever, chills, weight gain, weight loss.?Women Only:?Denies?Painful intercourse.?Admits?Vaginal discharge/itching.?Genitourinary:?Denies?Difficulty urinating.?Denies?Frequent urination.?Denies?Painful urination.? * Medical History:? * Manager Casino History:?/ Para?2/2.?Sexual activity?not currently sexually active.?Last Pap Smear:?2012.?Mammogram:?2018.?LMP and menses?Hyst.?Colonoscopy?2014.? * OB History:?Total pregnancies?2.?Total living children?2.?NVD?1.?(s)?1.? * Surgical History:?Appendecto my 1964Tonsillectomy 1960'sC-Section x 1 1985Hysterectomy 1993Breast Biopsy Colonoscopy 2013 * Hospitalization/Major Diagno stic Procedure:?1 Vaginal Delivery See Surgical Hx * Family History:?Mother: silverio barfield, heart stent.?Father: , mesothelioma, lung cancer.?1 sister(s) - healthy. .? * Social History:?Tobacco Use:?Tobacco Use/Smoking?Are you a?former smoker ?How long has it been since you last smoked??> 10 years ???Sexual History:?Sexual History?Had sex in the past 12 months (vaginal, oral, or anal)??No ?Have you ever had a Sexually transmitted disease??No ?Details of Sexual History?Are you sexually active??No ???Drugs/Alcohol:?Drugs?Have you used drugs other than those for medical reasons in the past 12 months??No ?Alcohol Screen (Audit-C)?Did you have a drink containing alcohol in the past year??No ?Points?0 ?Interpretation?Negative ???Miscellaneous:?Children: yes, 2. ?Exercise: yes, Occ walking. ?Home smoke detector use: yes. ?Living with: spouse. ?Marital status: . ?Natural support system: yes. ?Occupation: Retired. ?Sexually active: no, monogamous relationship. * Medications:?TakingAllopurin ol 100 MG Tablet 1 tablet Orally Once a day Fluconazole 200 MG Tablet 1 tablet Orally Pantoprazole Sodium 40 MG Tablet Delayed Release 1 tablet 1/2 to 1 hour before morning meal Orally Once a day Januvia 100 MG Tablet 1 tablet Orally Once a day Gabapentin 100 MG Capsule 1 capsule Orally Once a day Propranolol HCl ER 160 MG Capsule Extended Release 24 Hour 1 capsule Orally Once a day Lisinopril 10 MG Tablet 1 tablet Orally Once a day Glimepiride 4 MG Tablet 1 tablet with breakfast or the first main meal of the day Orally Once a day ALPRAZolam 0.5 MG Tablet 1/2 tablet Orally Once a day Clotrimazole-Betamethasone 1-0.05 % Cream 1 application Externally Twice a day Estrace 0.1 MG/GM Cream 1 gram Vaginal twice weekly Taking Allopurinol 100 MG Tablet 1 tablet Orally Once a day Taking Fluconazole 200 MG Tablet 1 tablet Orally Taking Pantoprazole Sodium 40 MG Tablet Delayed Release 1 tablet 1/2 to 1 hour before morning meal Orally Once a day Taking Januvia 100 MG Tablet 1 tablet Orally Once a day Taking Gabapentin 100 MG Capsule 1 capsule Orally Once a day Taking Propranolol HCl ER 160 MG Capsule Extended Release 24 Hour 1 capsule Orally Once a day Taking Lisinopril 10 MG Tablet 1 tablet Orally Once a day Taking Glimepiride 4 MG Tablet 1 tablet with breakfast or the first main meal of the day Orally Once a day Taking ALPRAZolam 0.5 MG Tablet 1/2 tablet Orally Once a day Taking Clotrimazole-Betamethasone 1-0.05 % Cream 1 application Externally Twice a day Taking Estrace 0.1 MG/GM Cream 1 gram Vaginal twice weekly DiscontinuedBactrim DS 800-160 MG Tablet 1 tablet Orally Twice a day Medication List reviewed and reconciled with the patientDiscontinued Bactrim DS 800-160 MG Tablet 1 tablet Orally Twice a day Medication List reviewed and reconciled with the patient * Allergies:?N.K.D.A.no[Allerg ies Verified] Objective: * Vitals:?Ht: 66 in, Wt: 214 l bs, BMI:34.54Index, BP: 112/64 mm Hg, Temp: 98.2 F. * Examination: ???Genitourinary - Female: ?GENERAL APPEARANCE:? alert, oriented, no apparent distress, interventional physiatrist present in room.?ABDOMEN:? soft, non-tender, no mass.?EXTERNAL GENITALS:?erythema inner vulva.?URETHRAL MEATUS:? normal.?URETHRA:? normal.?VAGINA:?healthy pink mucosa without any lesions, creamy medication present.?ANUS/PERINEUM:? appears normal.?CERVIX:?surgically absent.?UTERUS:?surgically absent.?OVARIES:? no masses felt in adnexa, nontender.? Assessment: * Assessment: 1.?Postmenopausal atrophic v aginitis - N95.2 (Primary)???2.?Urgency of urination - R39.15??? Plan: * Treatment: 2.?Urgency of urination?LAB: Urinalysis (Collection Date & Time - 10/04/2024) ? Value Reference Range ?NITRITE neg * ?PH 5.0 * ?PROTEIN neg * ?S.G 1.020 * ?WBC neg * ?GLUCOSE neg * ?KETONES neg * ?UROBILINOGEN neg * ?BILIRUBIN neg * ?BLOOD neg * urine * Procedures:?Wet Mount:?Clue cells?None seen.?Hyphae?No hyphae or buds.?Trichomonas?None seen.? * Procedure Codes:? * Preventive Medicine:?~~~~~~~~~~~~~ ESTRADIOL TAPER ~~~~~~~~~~~~~ Please taper estradiol to twice weekly as follows: Once daily for 2 weeks, then every other day for 2 weeks, then twice weekly from then on. * Follow Up:?prn * Images: Billing Information: * Visit Code:? 49570 Office Visit, Est Pt., Level 3. * Procedure Codes:? * Sign off status: Completed true * Provider:?BRIGETTE FERNANDO MD Date:?2024 Generated for Rigo farmer/Jeanine/Opheliasmitting on:?11/13/2024 02:15 PM EDT History and Physical Notes * HPI (History of Present Illness) Category Sub-Category Detail Notes Category Not es DEMONSTRATOR SEWING TECHNIQUES (Problems) Vaginitis (Symptoms of): Location of problem:: vaginal problem vaginal burning She admits to not using vaginal estrogen since her last visit here, perhaps a couple of years ago. Vulvar symptoms:: no vulvar symptoms Duration:: 2.5 weeks, improving a little in the last few days Discharge description:: none Additional complaints:: none Potential risk factors:: rep orts no risk factors for sexually transmitted disease Aggravating risk factors:: sitting with legs together Previous treatment for this condition:: fluconazole, clotrimazole Examination Category Sub-Category Detail Notes Category Not es Genitourinary - Female ABDOMEN: soft, non-tender, no mass EXTERNAL GENITALS: erythema inner vulva VAGINA: healthy pink mucosa without any lesions, creamy medication present CERVIX: surgically absent UTERUS: surgically absent OVARIES: no masses felt in ad nexa, nontender GENERAL APPEARANCE: alert, oriented, no apparent distress, interventional physiatrist present in room URETHRAL MEATUS: normal URETHRA: normal ANUS/PERINEUM: appears normal
--- OUTSIDE RECORDS SUMMARY | 2024-11-13 14:16 | XMS_ITS | Clinical Summary ---
Author Organization [facility] Address [address] [facility] [place] [address] Care Team Providers Care Foundation Engineer Name Role Phone Unavailable Primary Care Provider [...] once) 1975 Colon cancer screening, Colonoscopy 2000 Pneumococcal Vaccine (50+ years) (1 of 1 - PCV) 2005 Shingles vaccine (Shingrix) (1 of 2 - Shingrix (RZV) 2 Dose Standard Series) 2005 RSV Immunization (1 - Risk 60-74 years 1-dose series) 2015 Breast cancer screening 08/11/2023 08/11/19, 08/03/2021, 07/27/2020, Additional history exists Covid-19 vaccine series ( season) 2024 06/22/2021, 10/18/2020, 09/20/2020 Diabetes screening 02/24/2025 02/24/2022, 0 01/12/2022, 11/25/2021, Additional history exists Influenza vaccine 04/07/2025 05/27/2021, 05/07/2020 Lipid disorder screening 01/12/2027 01/12/2022, 01/2020 Osteoporosis screening (bone density) Completed 07/27/2020 Hepatitis [...] screening test for low risk patient MAMMO DIAGNOSTIC ARIAN LEFT([facility]) Routine 08/11/2021 3:00 PM EST Abnormal mammogram of right breast DEXA BONE DENSITY Routine 07/27/2020 2:2 2 PM EST Osteoporosis screening from Last 3 Months or Most Recently Relevant to Health Maintenance Results * (ABNORMAL) POCT glycosylated hemoglobin (HgbA1c), total (95090) (02/24/2022 11:57 AM EDT) [facility] Hemoglobin A1C, POC 8.8 4.0 - 6.0 % [facility] Test Lot Number [id number] [facility] Test Lot Exp Date 09/21/23 Date Format: MM/DD/YYYY [facility] 02/24/2022 11:5 7 AM EDT Cora Quiroz APRN POINT OF CARE TEST ORDERABLES Final Result [facility] [place], [place] * Hepatitis C Ab with reflex to HCV PCR (01/12/2022 8:35 AM EDT) [facility] Hepatitis C Antibody Negative Negative 01/12/2022 1:55 PM EDT [facility] Blood Venipuncture / Unknown 01/12/2022 8:35 AM EDT 01/12/2022 8:35 AM EDT Cora Quiroz APRN LAB BLOOD ORDERABLES Final Res ult [facility] [address] [place] [address] * (ABNORMAL) Lipid panel (01/12/2022 8:35 AM EDT) [facility] Cholesterol 207(H) See Comment mg/dL 01/12/2022 12:47 PM EDT [facility] Comment: Cholesterol Reference Range: ? Desirable: ?? <200 mg/dL ? Borderline: ??200-240 mg/dL ? High Risk: ?? >240 mg/dL HDL 48 See Comment mg/dL 01/12/2022 12:47 PM EDT [facility] Comment: HDL Reference Range: Low: <40 High: > or = 60 Triglycerides 123 See Comment mg/dL 01/12/2022 12:47 PM EDT [facility] Comment: Triglyceride Reference Range: ?Normal: ? <150 mg/dL ?Borderline High: ??150-199 mg/dL ?High: ? 200-499 mg/dL ?Very High: ?>or= 500 mg/dL LDL Calculated 134(H) See Comment mg/dL 01/12/2022 12:47 PM EDT [facility] Comment: LDL Reference Range: Optimal: ? <100 mg/dL Near/Above Optimal: ??100-129 mg/dL Borderline High: ? 130-159 mg/dL High: ?160-189 mg/dL Very High: ? >or= 190 mg/dL Blood Venipuncture / Unknown 01/12/2022 8:35 AM EDT 01/12/2022 8:35 AM EDT us Cora Quiroz YARN DRY ROOM WORKER LAB BLOOD ORDERABLES Final Res ult Performing Organization Address City/State/[facility] Co de Phone Number [facility] [address] [place] [address] * Mammography Diagnostic Arian Left (08/11/2021 3:00 PM EST) Anatomical Region Laterality Modality Breast Left Mammography 08/11/2021 3:02 PM EST Impressions 08/11/2021 3:08 PM EST No mammographic evidence of malignancy. LATERALITY Left BI-RADS Birad 2 - Benign RECOMMENDATION Follow up mammogram 1 yr DENSITY D2-Scattered fibroglandular Reported and signed by: ??Stepan Whalen MD Narrative 08/11/2021 3:08 PM EST MAMMO DIAGNOSTIC ARIAN LEFT([facility]) HISTORY: left breast focal asymmetry. COMPARISON: Mammograms from 01/26/2018 through 08/03/2021 TECHNIQUE:Left ML view with tomography was obtained. Spot compression and tomography of the suspected area was obtained. FINDINGS: Area of architectural distortion dissipates with spot compression. No discrete or dominant mass is seen. ??No new or increasing densities are noted. There are no suspicious clusters of microcalcifications seen. Breast tomosynthesis confirms the above findings. Procedure Note Stepan Whalen MD - 08/11/2021 MAMMO DIAGNOSTIC ARIAN LEFT([facility]) HISTORY: left breast focal asymmetry. COMPARISON: Mammograms from 01/26/2018 through 08/03/2021 TECHNIQUE:Left ML view with tomography was obtained. Spot compression andtomography of the suspected area was obtained. FINDINGS: Area of architectural distortion dissipates with spot compression. Nodiscrete or dominant mass is seen. No new or increasing densities arenoted. There are no suspicious clusters of microcalcifications seen. Breast tomosynthesis confirms the above findings. IMPRESSION: No mammographic evidence of malignancy. LATERALITY Left BI-RADS Birad 2 - Benign RECOMMENDATION Follow up mammogram 1 yr DENSITY D2-Scattered fibroglandular Reported and signed by: Stepan Whalen MD Cora Quiroz APRN IMG MAMMOGRAPHY ORDERABLES Fin al Result * Dexa Bone Density (07/27/2020 2:22 PM EST) [facility] IM[facility] [address]ESS [facility] IMAGING [facility] ZIP [facility] IMAGING Anatomical Region Laterality Modality Radiographic Esperanza ging 07/27/2020 3:02 PM EST Narrative 07/27/2020 3:02 [place] [address] DEXA BONE DENSITY KIZZY URBINA ? Sex: F ??: [id number] ?? Service Date: 2020-07-27 14:11:00 DXA WITHOUT [...] Procedure Note Keith Meadows MD - 07/27/[address] [address] DEXA BONE DENSITY KIZZY URBINA Sex: F : [id number] Service Date: 2020-07-27 14:11:00 DXA WITHOUT PRIOR [...] Most Recently Relevant to Health Maintenance Insurance [facility] Member Subscriber Plan / Payer (Ef fective 2020-Present) Name:Kizzy Urbina Relation to Subscriber:Self Name:Kizzy Urbina Payer ID:[id number] (NAIC) Type:Not on file Address: [place] [phone] [facility]
--- OUTSIDE RECORDS SUMMARY | 2024-11-13 14:16 | XMS_ITS ---
Author Organization [employer] [facility] Address [address] [place] [address] Care Team Providers Care Inclusion Special Education Teacher Name Role Phone JOSEPH HARDWICK Primary Care Provider BRIGETTE Addison Unavailable [phone] Allergies No Known Allergies Results Component Value Reference Range Notes Urinalysis Reviewed date:06/16/2023 02:50:57 PM Interpretation: Performing Lab: Notes/Report: NITRITE POS PH 5.0 PROTEIN TRACE S.G 1.015 WBC MOD GLUCOSE NEG KETONES NEG UROBILINOGEN NEG BILIRUBIN NEG BLOOD NEG URINE CULTURE Reviewed date:06/19/2023 08:35:38 AM Interpretation: Performing Lab:Testing performed or reported by [facility], a Service of [facility], [address] [place] [id number] Akash Silverman MD, It Help Desk Manager [facility]# [id number] Notes/Report: SPECIMEN DESCRIPTION URINE SPECIAL REQUESTS NONE [...] No Points 0 Interpretation Negative Vital Signs Height 66 in 06/16/2023 Weight 190 lbs 06/16/2023 BMI 30.66 kg/m2 06/16/2023 Blood pressure systolic 100 mm Hg 06/16/20 Blood pressure diastolic 70 mm Hg 023 Temperature 96.7 degrees Fahrenheit 06/16/20 23 Encounters Encounter Location Date Provider Diagnosis [address] [place] [address] 06/16/2023 BRIGETTE FERNANDO Dysuria R30.0 Assessments Encounter [...] Follow Up: prn, Reason: Progress Notes * JOSE RAFAEL URBINAEDOB:1955 (68 yo F)Acc No.[id number]:06/16/2023 PROGRESS NOTES Patient:?KIZZY URBINA Provider:?BRIGETTE FERNANDO MD :1955???Age:68 Y???Sex:Female D ate:06/16/2023 Address:[address] [place] [address], [facility] Pcp:JOSEPH HARDWICK Subjective: * Chief Complaints: * ? UTI * HPI: ???BIODIESEL DIVISION MANAGER (Problems):?68 year old female presents with c/o [...] lower back.?Admits?Painful urination.? * Medical History:? * Occ Therapy Asst History:?/ Para?2/2.?Sexual activity?not currently sexually active.?Last Pap [...] pleasant, well nourished, in no acute distress, juvenile detention officer present in room.?ABDOMEN:?soft, nontender, nondistended, bowel sounds [...] need to call.This lab was reviewed by BRIGETTE FERNANDO on 06/19/2023 at 08:35 AM EST [...] * Images: Billing Information: * Visit Code:? 65534 Office Visit, Est Pt., Level 3. * Procedure Codes:? * Sign off status: Completed true * Provider:?BRIGETTE FERNANDO MD Date:?2022 Generated for Rigo farmer/Jeanine/eTransmitting on:?11/13/2024 02:16 PM EDT History and Physical Notes * HPI (History of Present Illness) Category Sub-Category Detail Notes Category Not es BIODIESEL DIVISION MANAGER (Problems) Urinary Tract Infection (symptoms of): Describes [...] , well nourished, in no acute distress, juvenile detention officer present in room ABDOMEN: soft, nontender, non distended, bowel sounds present, no masses palpable, no hepatosplenomegaly BACK: normal, no costovert ebral angle tenderness
--- OUTSIDE RECORDS SUMMARY | 2024-11-13 14:16 | XMS_ITS | Data Portability ---
Author Organization [facility], Home Service Address [address] [place] [address] Assessment Encounter Date Assessment Date Assessment LastModified by Organization Details LastModified Time 05/24/2024 05/24/2024 Patient presented for medication refill. Patient tolerating medication well at current dose without adverse effects. Refilled as below. Discussed plan with patient, who expressed understanding . Follow up as noted below. [email or web address] Not available 05/24/2024 10:36:17 Plan of Treatment Reminders Order Date Submit Date Provider Last Modified By Organization Details Last Modified Time Details Appointments SDV 2024 11:30A M CHRISTINA PERRY Not available Not available Not available FOLLOW UP 15 2024 09:45A M CHRISTINA PERRY Not available Not available Not available Lab urinalysi s, dipstick [address] [facility], [address] [facility], [address], [place], [address], 11/13/2024 12:53:40 urinalysi s complete, reflex culture 2024 025 [facility], [address] [place] [address], [place], [address], 11/13/2024 11:48:19 CMP, serum or plasma 2024 025 [facility], [address] [place] [address], [place], [address], 11/13/2024 11:56:06 hemoglobi n A1c, QN, blood 2024 025 [facility], [address] [place] [address], [place], [address], 11/13/2024 11:56:07 CBC w/ auto diff 2024 025 [facility], [address] [place] [address], [address], 11/13/2024 11:56:06 H pylori urea breath test, co2 infrared 2024 025 [email or web address] [facility] (Centralized Electronic Ordering - All Locations), Patient Can Go To The Location Of Their Choice, [address] 08/09/2024 12:08:02 CMP, serum or plasma 2023 024 [facility], [address] [place] [address], [address], 05/24/2024 10:53:35 lipid panel, blood 2023 024 [facility], [address] [place] [address], [address], 05/24/2024 10:53:35 hemoglobi n A1c, QN, blood 2023 024 [facility], [address] [place] [address], [address], 05/24/2024 10:53:35 CBC w/ auto diff 2023 024 [facility], [address] [place] [address], [address], 05/24/2024 10:53:35 CMP, serum or plasma 2022 023 [facility], [address] [place] [address], [address], 04/26/2023 15:05:24 CBC w/ auto diff 2022 023 [facility], [address] [place], [address], 04/26/2023 15:05:24 hemoglobi n A1c, QN, blood 2022 023 [facility], [address] [place], [address], 04/26/2023 15:05:23 Referral gastroent erologist referral 2023 024 frida Moody MD, [address] [place] [address], [address], 05/27/2024 09:52:46 Procedures None recorded. Surgeries None recorded. Imaging RF, upper gastroint estinal tract, w/ contrast PO 2024 025 [facility], [address] [place], [address], 08/15/2024 11:42:49 Medication Orders trazodone 50 mg tablet 2024 025 [facility], [address] [place] [address], [address], 11/13/2024 12:05:38 cephalexi n 500 mg capsule 2024 025 [facility], [address] [place] [address], [address], 11/13/2024 12:03:42 Januvia 100 mg tablet 2024 025 [facility], [address] [place], [address], 09/20/2024 11:41:47 allopurin ol 100 mg tablet 2024 025 [facility], [address] [place], [address], 09/20/2024 11:41:46 clotrimaz ole 1 % vaginal cream 2024 025 [facility], [address] [place], [address], 09/20/2024 11:41:46 fluconazo le 200 mg tablet 2024 025 [facility], [address] [place], [address], 09/20/2024 11:41:47 pantopraz ole 40 mg tablet,de layed release 2024 025 [facility], [address] [place], [address], 08/09/2024 11:57:23 sucralfat e 1 gram tablet 2024 025 [email or web address], [address] [place] [address], [address], 09/20/2024 11:05:21 Accu-Chek Yolande Plus test strips 2022 023 [facility] [address] [place], [address], 04/26/2023 15:14:56 Patient TargetsNo targets recorded. Patient InstructionsNo instructions recorded. 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 [address], [address], 12/22/2023 09:02:08 08/15/19 25 08/15/2024 RF, upper gastr ointe alvin l tract , w/ contr ast PO No observ ation record ed. [email or web address] [facility] [address], [place], [address], 08/16/2024 16:40:35 Result Notes None recorded. Problems Name Problem SNOMED Code Status Onset Date Resolution Date Notes Provider Name and Address Organization Details Recorded Time Mixed hyperlip idemia 720477520 Active 2018 Not Available [facility] 3 12:53:23 Atrophic vaginiti s 95528090 Active 2018 Not Available [facility] 3 12:53:23 Gastroes ophageal reflux disease 855148959 Active 2021 Not Available [facility] 3 12:53:23 Type 2 diabetes mellitus 40928939 Active 2022 Not Available [facility] 3 12:53:23 Bilatera l carpal tunnel syndrome 03658748009 080023 Active 2022 Not Available [facility] 3 12:53:23 Squamous cell carcinom a 485356175 Active 2022 Not Available [facility] 3 12:53:23 Candidia sis of vagina 84510344 Active 2022 Not Available [facility] 3 12:53:23 Gastro-e sophagea l reflux disease with esophagi tis 095384943 Active 2024 CHRISTINA PERRY [address] [place], [address], [facility] 5 11:51:23 Acute urinary tract infectio n 954943566 Active 2024 CHRISTINA PERRY [address] [place], [address], [facility] 5 10:03:54 Gastropa resis syndrome 634844380 Active 2024 CHRISTINA PERRY [address] [place], [address], [facility] 5 16:41:14 Dysuria 33431905 Active 2024 Dwayne Vidal DO [address] [place], [address], [facility] 5 13:13:04 Urinary crystal, calcium oxalate 788099768 Active 2024 CHRISTINA PERRY [address] [place], [address], [facility] 5 11:32:45 Insomnia 001865623 Active 2024 CHRISTINA PERRY [address] [place], [address], [facility] 5 11:53:41 Essentia l hyperten wan 71301905 Active 2017 Not Available [facility] 3 12:53:23 Divertic ulitis 883183696 Active 2017 Not Available [facility] 3 12:53:23 Diabetes mellitus 68353102 Active 2017 Not Available [facility] 3 12:53:23 Sciatica 80715281 Active 2017 Not Available [facility] 3 12:53:23 Recurren t urinary tract infectio n 688294474 Active 2017 Not Available [facility] 3 12:53:23 Painful urinary bladder spasm 9781915 Completed 201712/11/2017November ZenaidaMARY amadorRICCARDO [address] [place], [address], [facility] 8 10:54:35 Spasm of urinary bladder 369510318 Active 2017 Not Available [facility] 3 12:53:23 Problem Notes None recorded. Procedures Surgical History None recorded. Imaging Results Imaging Date Name Status LastModified by Organization Details LastModified Time 12/20/2023 MAMMO, screening, digital, bilateral completed [email or web address] [address], [place], [address], 12/22/2023 09:02:08 08/15/2024 RF, upper gastrointestinal tract, w/ contrast PO completed rtryba [facility] [address] [facility], [place], [address], 08/16/2024 16:40:35 Procedure Notes None recorded. Medical Equipment None Reported. Allergies Allergen ID Allergen Name Allergen Category Reaction Reaction Severity Criticality Documentation Date Start Date Code Code System Note Provider Name and Address Organization Details Recorded Time 1187 simvastat in medicatio n myalgias (muscle pain) Not available Not available 12/08/2017 35811 RxNorm Li clements [facility] 8 15:41:56 1188 metformin medicatio n diarrhea Not available Not available 12/08/2017 6809 RxNorm Li clements [facility] 8 15:42:14 8918 Cipro medicatio n Not available Not available Not available 11/13/202463032 3 RxNorm CHRISTINA PERRY [address] [place] [address], [address], [facility] 5 11:59:03 Medications Name Sig [...] Not Available Vitals Date Recorded Body height Body mass index (BMI) Body weight Heart rate Oxygen saturation Oxygen saturation in Arterial blood by Pulse oximetry Systolic blood pressure Diastolic blood pressure Provider Name and Address Organization Details Last Updated DateTime 3 163.83 cm 33.1 kg/m2 92593.1 g 66 /min 99 % 99 % 101 mm[Hg] 58 mm[Hg] Kirsten Mackey [facility] 3 14:34:12 Date Recorded Body height Body mass index (BMI) Body weight Heart rate Oxygen saturation Oxygen saturation in Arterial blood by Pulse oximetry Systolic blood pressure Diastolic blood pressure Provider Name and Address Organization Details Last Updated DateTime 4 163.83 cm 37.6 kg/m2 984106. 22 g 65 /min 96 % 96 % 124 mm[Hg] 74 mm[Hg] Meli Esparza [facility] 4 10:31:07 Date Recorded Body height Body mass index (BMI) Body weight Heart rate Oxygen saturation Oxygen saturation in Arterial blood by Pulse oximetry Systolic blood pressure Diastolic blood pressure Provider Name and Address Organization Details Last Updated DateTime 5 163.83 cm 37 kg/m2 20369.6 5 g 86 /min 97 % 97 % 120 mm[Hg] 80 mm[Hg] eMli Esparza [facility] 5 11:33:27 Date Recorded Body height Body mass index (BMI) Body weight Heart rate Oxygen saturation Oxygen saturation in Arterial blood by Pulse oximetry Systolic blood pressure Diastolic blood pressure Provider Name and Address Organization Details Last Updated DateTime 5 163.83 cm 36.7 kg/m2 36043.5 4 g 72 /min 96 % 96 % 116 mm[Hg] 74 mm[Hg] Meli Esparza [facility] 5 11:11:45 Date Recorded Body height Heart rate Oxygen saturation Oxygen saturation in Arterial blood by Pulse oximetry Systolic blood pressure Diastolic blood pressure Provider Name and Address Organization Details Last Updated DateTime 5 163.83 cm 75 /min 98 % 98 % 128 mm[Hg] 82 mm[Hg] Meli Esparza [facility] 5 11:42:16 Social History Question Answer Notes LastModified by Organizat ion Details LastModified Time Tobacco Smoking Status Former Smoker Not Available [facility] 06/09/2020 03:36:24 What Was The Date Of Your Most Recent Tobacco Screening? 11/13/2024 [email or web address] Information not available 11/13/2024 How Many Years Have You Smoked Tobacco? 2 [id number] Information not available 06/09/2020 Sex: Unknown Functional Status None recorded. Mental Status None recorded. Family History Nothing Reported. Medical History No medical history recorded. Gynecological HistoryNo gynecological history recorded. Obstetrics History GPAL:G 0 P 0 0 0 0 Immunizations Vaccine Type Date Status Note Provider Nam e and Address Organization Details Recorded Time Influenza, split virus, quadrivalent, preservative 8 completed Cordell [facility] 05/10/2018 11:42:05 influenza, unspecified formulation 4 completed Meli [facility] 07/03/2024 08:18:29 Past Encounters Encounter ID Performer Location Encounter Start Date Encounter Closed Date Diagnosis/Indication Diagnosis SNOMED-CT Code Diagnosis ICD10 Code Diagnosis Note [id number] Marilin [facility] [address] [facility],[place] [address] 12/11/2017 10:10:13 12/11/2017 12:04:52 Essential hypertension 97615918 I10 good control Diabetes mellitus 373791 09 E11.9 typically, noncomplia nt with appts/labs , but compliant with diet and meds a1c at goal discussed weight management Sciatica 35436215 M54.30 stable with gabapentin sparing use Anxiety 35069171 F41.9 slightly worsened, will temporaril y increase dose to help manage current situation Carpal guanakito patricio syndrome 64862064 G56.03 night splint, nsaids, consider ortho in the future, pt declines ortho at this point [id number] [facility] [address] [facility],[place] [address] 09/11/2018 10:57:11 09/11/2018 12:08:44 Increased frequency of urination 918003982 R35.0 will culture urine, ua not suggestive of infection Vaginitis 74622078 N76.0 continue treatment for candidal infection if not improvemen t, then can trial estrace cream [id number] [facility] [address] [facility], [place] [address] 09/28/2018 11:47:50 09/28/2018 14:06:57 Vaginitis 39722168 N76.0 will check urine culture will defer abx as this instrument adjuster worsen yeast growth if cx pos will rx at that time - low suspicion of uti if diflucan successful , will then start estrace for vaginal dryness to prevent future recurrence s if all fails, recommend seeing PHP CONSULTANT any signifiant in meantime, please f/u prn Urinary incontinence 165 454135 R32 female stress incontinen ce generally stable Diabetes mellitus 537617 09 E11.9 typically, noncomplia nt with appts/labs , but compliant with diet and meds a1c at goal discussed weight management [id number] Carolyn Quinones NP, S [facility] [address] [facility], [place] [address] 11/26/2018 14:21:59 11/26/2018 15:38:26 Mixed hyperlipidemia 921878761 E78.2 Recurrent urinary tract infection 340105643 N39.0 Essential hypertension 51780589 I10 stable Diabetes mellitus 015951 09 E11.9 A1C 7.5 Atrophic vaginitis 51806 000 N95.2 [id number] [facility] [address] [facility], [place] [address] 03/26/2019 14:04:58 03/26/2019 14:48:00 Type 2 diabetes mellitus 81707519 E11.9 a1c 8.0 in UC increase glimepirid e Upper abdominal pain 831 58356 R10.10 resolved as well as chest pain pain did localize to the RUQ, but that has also resolved Right uppe r quadrant pain 602625197 R10.11 declines u/s to check for gallstones /fatty liver will get u/s if pain comes back [id number] November [facility] [address] [facility], [place] [address] 04/12/2019 13:36:46 04/12/2019 14:29:45 Excessive belching 613947562 R14.2 Gastroesop hageal reflux disease 877623315 K21.0 Epigastric pain 67294273 R10.13 ? gerd ? h. pylori ? nsaid induced ulcer Non-alcoho lic fatty liver 486463792 K76.0 Common lashawn e duct calculus 075239342 K80.50 [id number] Dwayne Vidal [facility] [address] [facility] [place] [address] 08/05/2019 11:14:57 08/05/2019 11:50:16 Dysuria 47231533 R30.9 Recurred after tx with nitro and TMP/SMX Acute urin heide tract infection 879300218 N39.0 UA shows trace leuk with no nitrite but this is after 2 days of abx still feels frequency and pressure but feels sl better we will cont the bactrim for full 10 days now we are committed to this but its poss a issue when she took one dose then stopped Diabetes mellitus 042597 09 E11.9 sugars hav e been elevated and this is not helping as she know s Atrophic vaginitis 80664 000 N95.2 using estrogen creme now per order picker/assembler she needs to make an pt for f/u [id number] CHRISTINA PERRY [facility] [address] [facility] [address],[place] [address] 01/01/2020 14:02:54 01/01/2020 14:42:00 Osteoarthritis of left hip joint 2306391999 92388 M16.12 will treat with prednisone taper, did not do well on advil as it caused GI upset osteoarthr itis vs sciatica will treat both if this is the case does not want to get XR at this time will watch bs and food, avoid sugary foods will on it will wait and see will call us back if she is still having a problem Diabetes mellitus 900775 09 E13.9 will get bw done [id number] CHRISTINA PERRY [facility] [address] [facility] [address],[place] [address] 07/25/2022 14:59:25 07/25/2022 16:34:05 Essential hypertension 89173446 I10 BP is excellent Diabetes mellitus 90531995 will get bw done Active or passive immunization 916880036 Z23 patient advised she is due for flu shot, tdap, pneu & shingles Gastroesop hageal reflux disease 367046748 K21.9 stable Screening mammography 24 125018 Z12.31 [place] [id number] CHRISTINA PERRY [facility] [address] [facility] [address],[place] [address] 04/26/2023 14:21:29 04/26/2023 15:42:57 Diabetes mellitus 73867510 E13.9 d/c the kandace villaseñor her lab work was excellent and she has made major advancemen ts Essential hypertension 37680616 I10 BP is excellent Mixed hyperlipidemia 267 484898 E78.2 stable Bilateral carpal tunnel syndrome 7974258463 7566158 G56.03 will hold on ortho referralwi ll let me know when she is ready to go Squamous c ell carcinoma 938999758 C80.1 on her facehas fu with [facility]'s surgeon [place] Type 2 selma betes mellitus 98591332 E11.9 [id number] CHRISTINA PERRY [facility] [address] [facility] [address] [place], [address] [place] [address] 05/24/2024 10:21:44 05/24/2024 10:58:57 Renewal of prescription 266649749 Z76.0 stable Depression screening 171 585270 Z13.31 SCREENING NEGATIVE Screening for malignant neoplasm of colon 446597983 Z12.11 needs f/u with 5 years Type 2 selma betes mellitus 91471303 E11.9 needs f/u lab work Essential hypertension 67156602 I10 BP is excellent [id number] CHRISTINA PERRY [facility] [address] [facility] [address] [place], [address] [place] [address] 08/09/2024 11:22:34 08/09/2024 12:15:38 Gastro-esophageal reflux disease with esophagitis 441307282 K21.00 has endoscope scheduled in September, will see if we can get it moved up [id number] CHRISTINA PERRY [facility] [address] [facility] [address] [place] [address] [place] [address] 09/20/2024 10:59:13 09/20/2024 13:25:24 Urinary crystal, calcium oxalate 681472526 R82.998 will set up with allopurino l Candidiasis of vagina 72 774727 B37.31 will start on dual therapy Type 2 selma betes mellitus 86955459 E11.9 needs f/u lab work [id number] CHRISTINA PERRY [facility] [address] [facility] [address],[place] [employer] [place] [address] 11/13/2024 11:28:09 11/13/2024 12:21:16 Dysuria 43251157 R30.0 will set up with urinalysis short course of abxwas started on estrogen cream again Insomnia 694990790 G47.0 1 will have her adjust when she takes her ativan Type 2 selma betes mellitus 85828111 E11.9 needs f/u lab workhas f/u appt next Health Concerns Section Related Observation LastModified by Organization Detai ls LastModified Time None Recorded Concern Status LastModified by Organization Details LastModified Time None Recorded Advance Directives Directive None Recorded Payers Encounter Date Sequence Insurance Name Policy Number Policy Roy Covered Member ID Roy Member ID Guarantor Name 04/26/2023 1 [place] PPO) [id number] Piedad Sherif [id number] Piedad Sherif 05/24/2024 1 [place]PO) [id number] Piedad Sherif [id number] Piedad Sherif 08/09/2024 1 [place]) [id number] Piedad Sherif [id number] Piedad Sherif 09/20/2024 1 [place]PO) [id number] Piedad Sherif [id number] Piedad Sherif 11/13/2024 1 [place]PO) [id number] Piedad Sherif [id number] Piedad Sherif Notes Date Note Type Note Provider Name and Address Organization Details Recorded Time 3 text/html f/u appointment T2DM: numbers are excellenthas lost weight and is doing really well will dc the januvia; very pricey and her numbers are great HTN: today in the office the patient BP is 101/58 R arm sittingthe patient is doing well on the BP medication with no side effects and no adjustment of their medications needed today at the appointmentwell-control led on medicationdenies chest pain, sob, ankle swelling, orthopnea, palpitations will cut back the lisinopril since it is making her dizzy [place] dermatology CHRISTINA PERRY [address] [place] [address], [place], [address], [facility] 04/26/2023 15:05:11 4 text/html medication f/u colonoscopy: the patient reports that she gets one done very 5 years due to hx of precancerous polyphaving constipation and abdominal pain [facility]: today in the office the patient BP is 124/74 L arm sittingthe patient is doing well on the BP medication with no side effects and no adjustment of their medications needed today at the appointmentwell-control led on medicationdenies chest pain, sob, ankle swelling, orthopnea, palpitations depression screening: some depression from situation with her kids, situational needs lab work CHRISTINA PERRY [address] [place], [address], [facility] 05/24/2024 10:58:01 5 text/html ER f/u the patient developed severe chest painhas been having issues with severe GERD symptoms which she has been seeing GI for this ER visit this past week, cardiac work-up and bloodwork which was a questionno signs of cardiac disease did try omeprazole without effectno effect with Gas X, famotidine, Tums the patient having recent colonoscopy/endoscope with Dr. Lucero recent endoscope on file, and she is booked out to [facility] send over notice of ER visit to her office with the Upper GI will start on high dose on pantoprazole CHRISTINA PERRY [address] [place], [address], [facility] 08/09/2024 12:12:13 5 text/html c/o uti the patient reports that she is having burning, vaginal discomfort, andthe patient was on cipro and macrobid from UC for dysuria the patient reports that she finished the diflucanwill switch to alt, with topical cream as well had calcium oxalate crystals, start on allopurinol for the crystalsthe patient needs to drink more water increase januvia to 100 mg CHRISTINA PERRY [address] [place], [address], [facility] 09/20/2024 11:52:01 5 text/html c/o dysuria the patient is [...] instead needs lab work CHRISTINA PERRY [address] [facility], [place], [address], [facility] 11/13/2024 12:28:57 OBGyn Episode No OBEpisode recorded.
--- OUTSIDE RECORDS SUMMARY | 2024-11-13 14:16 | XMS_ITS | Encounter Summary ---
Author Organization [facility] Address [address] [place] [address] Care Team Providers Care Steamer Operator Name Role Phone Richie Cora NOLEN Primary Care Provider [phone] Encounter Details Date Type Department Care Team (Late st Contact Info) Description 05/18/2021 Abstract [facility] [place] [address] [place], [place] [id number] External, Provider Social History Tobacco Use Types [...] documented as of this encounter Care Teams Steamer Operator Relationship Specialty Start Date End Date Cora Quiroz APRN [address] [place] [address] [place] [address] PCP - General Family Medicine 05/07/20 05/26/22 documented as of this encounter
--- OUTSIDE RECORDS SUMMARY | 2024-11-13 14:16 | XMS_ITS | Patient Health Record ---
Author Organization [facility] Address [address] [place] [address] [address] [place] [address] Care Team Providers Care Wheat Washer Name Role Phone JOSEPH HARDWICK Primary Care Provider BRIGETTE Addison Unavailable [phone] Allergies No Known Allergies Results Component Value Reference Range Notes Urinalysis Reviewed date:10/04/2024 02:32:44 PM Interpretation: Performing Lab: Notes/Report: NITRITE neg PH 5.0 PROTEIN neg S.G 1.020 WBC neg GLUCOSE neg KETONES neg UROBILINOGEN neg BILIRUBIN neg BLOOD neg Reason For Referral No Information Medications Medication SIG (Take, Route, Frequency, Duration) Notes Start Date End Date Status Allopurinol 100 MG 1 tablet Orally Once a day Active Pantoprazole Sodium 40 MG 1 tablet 1/2 t o 1 hour before morning meal Orally Once a day Active Fluconazole 200 MG 1 tablet Orally Active Glimepiride 4 MG 1 tablet with [...] Once a day for 30 day(s) Active Estrace 0.1 MG/GM 1 gram Vaginal twice weekly for 90 days Active Gabapentin 100 MG 1 capsule Orally Onc e a day for 30 day(s) Active Januvia 100 MG 1 tablet Orally Once a day Active Social History Tobacco Use: Social History [...] Status Risk Notes Problem Postmenopausal atrophic vaginitis (95035320) Postmenopausal atrophic vaginitis (N95.2) Active confirmed Problem SI - Stress incontinence (28818742) Stress incontinence (female) (male) (N39.3) Active confirmed Problem Type II diabetes mellitus without complication (305703709) Type 2 diabetes mellitus without complications (E11.9) Active confirmed Problem Disorder of carbohydrate metabolism (60704961) 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 Vital Signs Temperature 98.2 degrees Fahrenheit 10/04/2024 Blood pressure diastolic 64 mm Hg 10/04/2024 Height 66 in 10/04/2024 Blood pressure systolic 112 mm Hg 10/04/2024 Weight 214 lbs 10/04/2024 BMI 34.54 kg/m2 10/04/2024 Encounters Encounter Location Date Provider Diagnosis [address] [address] 10/04/2024 BRIGETTE FERNANDO Urgency of urination R39.15 and Postmenopausal atrophic vaginitis N95.2 Assessments Encounter Date Diagnosis (ICD Code) Assessment Notes Treatment Notes Treatment Clinical Notes Section Notes 10/04/2024 Postmenopausal atrophic vaginitis (ICD-10 - N95.2) [...] 2 weeks, then tapering to twice weekly. 10/04/2024 Urgency of urination (ICD-10 - R39.15) Plan Of Treatment Pending Test Test Name Order Date Urinalysis 08/13/2019 PELVIC ULTRASOUND W/TRANSVAGINAL 020 Insurance Providers Payer Name Payer Address Payer Phone Subscriber Number Group Number Insured Name Patient Relationship to Insured Coverage Start Date Coverage End Date BCBS MEDICARE PPO [address] [place] [address] [phone] [id number] KIZZY URBINA Self - patient is the insured Medical (General) History Medical History History ICD Code Diverticulosis of intestine, part unspecified, without perforation or abscess without bleeding K57.90 Type 2 diabetes mellitus with unspecifie d complications E11.8 Headache R51 Essential (primary) hypertension I10 Surgical History Surgery Date(Month/Year) Appendectomy 1964 Tonsillectomy 1960's x 1 1985 Hysterectomy 1992 Breast Biopsy Colonoscopy 2014 Hospitalization History Reason Date(Month/Year) See Surgical Hx 1 Vaginal Delivery
[2024-11-13 18:21] LABS: MANUAL DIFF FLAG NO
[2024-11-13 18:30] LABS: Basophils Absolute Auto 0.1 X10*3/uL (0.0-0.2); Basophils Percent Auto 0.7 % (0-2); Eosinophils Absolute Auto 0.2 X10*3/uL (0.0-0.4); Eosinophils Percent Auto 2.4 % (0-4); Hematocrit 38.9 % (37.0-47.0); Hemoglobin 12.4 g/dl (12.0-16.0); Imm Gran Abs Auto 0.04 X10*3/uL (0.00-0.03); Imm Gran Pct Auto 0.4 % (0.0-0.4); Lymphocytes Absolute Auto 2.3 X10*3/uL (1.2-4.9); Mean Corpuscular HGB Conc 31.9 g/dl (31.0-35.0); Mean Corpuscular Hemoglobin 30.6 pg (27.0-33.0); Monocytes Absolute Auto 0.8 X10*3/uL (0.1-1.2); Neutrophils Absolute Auto 5.9 x10*3/uL (2.0-8.3); Neutrophils Percent Auto 63.5 % (45-73); Platelet Count 329 X10*3/uL (160-400); Red Blood Count 4.05 X10*6/uL (4.20-5.50); Red Cell Distribution Width 13.4 % (11.0-16.0); White Blood Count 9.4 X10*3/uL (4.8-10.8)
[2024-11-13 18:43] LABS: Alanine Aminotransferase 23 U/L (0-31); Albumin Level 4.4 g/dL (3.5-5.0); Alkaline Phosphatase 94 U/L (39-117); Anion Gap 11 (12-20); Aspartate Amino Transferase 23 U/L (5-31); Bilirubin Total 0.4 mg/dL (0.0-1.0); Blood Urea Nitrogen 30 mg/dL (9-16); Calcium 10.2 mg/dL (8.4-10.2); Carbon Dioxide 21 mmol/L (22-29); Chloride 110 mmol/L (96-108); Estimated Glomerular Filt Rate > 60; Glucose Random 156 mg/dL (60-115); Sodium 138 mmol/L (135-145); Total Protein 7.6 g/dL (6.5-8.0)
[2024-11-14 06:35] LABS: Estimated Average Glucose 151 mg/dL; Hemoglobin A1C 174.4091 umol/L; Hemoglobin A1c % 6.9 % (<6.0); Total Hemoglobin (HGBA1C) 3327.2284 umol/L
== END 2024-11-13 12:16 | disposition home or self-care (01) ==
LOC: HO.MANLDS 12:15
PROVIDERS: Visit Provider Physician Assistant
DX: R30.0 Dysuria (principal); Z13.1 Encounter for screening for diabetes mellitus; Z13.89 Encounter for screening for other disorder
CPT/HCPCS: 36415; 80053; 81001; 83036; 85025

== ENCOUNTER 2024-11-20 10:35 | Outpatient (REF) | payer MEDICARE, SELFPAY ==
--- OUTSIDE RECORDS SUMMARY | 2024-11-20 12:29 | XMS_ITS ---
Author Organization [employer] [facility] Address [address] [facility] [address] [place] [address] Care Team Providers Care Acting Manager Name Role Phone JOSEPH HARDWICK Primary Care Provider BRIGETTE Addison Unavailable [phone] Allergies No Known Allergies Results Component Value [...] 10/04/19 Encounters Encounter Location Date Provider Diagnosis [address] [address] 10/04/2024 BRIGETTE FERNANDO Urgency of urination R39.15 [...] * JOSE RAFAEL URBINAEDOB:1955 (69 yo F)Acc No.[id number]:10/04/2024 PROGRESS NOTES Patient:?KIZZY URBINA Provider:?BRIGETTE FERNANDO MD :1955???Age:69 Y???Sex:Female D ate:10/04/2024 Address:[address] [place] [address], [place] [address] Pcp:JOSEPH HARDWICK Subjective: * Chief Complaints: * ???VAGINAL BURNING (PCP WAS TREATING) x 3 weeks * HPI: ???WEAPONS SPECIALIST (Problems):?Kizzy is a 69 yo who reports [...] urinating.?Denies?Frequent urination.?Denies?Painful urination.? * Medical History:? * Dry Starch Supervisor History:?/ Para?2/2.?Sexual activity?not currently sexually active.?Last Pap [...] ?GENERAL APPEARANCE:? alert, oriented, no apparent distress, pump rebuilder present in room.?ABDOMEN:? soft, non-tender, no mass.?EXTERNAL [...] * Images: Billing Information: * Visit Code:? 16049 Office Visit, Est Pt., Level 3. * Procedure Codes:? * Sign off status: Completed true * Provider:?BRIGETTE FERNANDO MD Date:?2024 Generated for Rigo farmer/Jeanine/eTransmitting on:?11/20/2024 12:29 PM EDT History and Physical Notes * HPI (History of Present Illness) Category Sub-Category Detail Notes Category Not es WEAPONS SPECIALIST (Problems) Vaginitis (Symptoms of): Location of problem:: [...] GENERAL APPEARANCE: alert, oriented, no apparent distress, pump rebuilder present in room URETHRAL MEATUS: normal URETHRA: normal ANUS/PERINEUM: appears normal
--- OUTSIDE RECORDS SUMMARY | 2024-11-20 12:29 | XMS_ITS | Patient Health Record ---
Author Organization [email or web address] Address [address] [place] [address] [address] [place] [address] Care Team Providers Care Commissary Representative Name Role Phone JOSEPH HARDWICK Primary Care Provider BRIGETTE Addison Unavailable [phone] Allergies No Known Allergies Results Component Value [...] Status Risk Notes Problem Postmenopausal atrophic vaginitis (03576178) Postmenopausal atrophic vaginitis (N95.2) Active confirmed Problem SI - Stress incontinence (75537337) Stress incontinence (female) (male) (N39.3) Active confirmed Problem Type II diabetes mellitus without complication (420182391) Type 2 diabetes mellitus without complications (E11.9) Active confirmed Problem Disorder of carbohydrate metabolism (96163705) 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
--- OUTSIDE RECORDS SUMMARY | 2024-11-20 12:29 | XMS_ITS | Continuity of Care Document ---
Author Organization [facility] Address [address] [place] [address] [place] [address] Assessment No assessment recorded. Plan of Treatment Reminders Order Date Submit Date Provider Last Modified By Organization Details Last Modified Time Details Appointments FOLLOW UP 15 2024 09:45A M CHRISTINA PERRY Not available Not available Not available Lab urinalysi s complete, reflex culture 2024 025 [facility], [address] [place] [address], [place], [address], 11/20/2024 10:26:20 Referral None recorded. Procedures None recorded. Surgeries None recorded. Imaging None recorded. Medication Orders None recorded. Patient TargetsNo targets recorded. Patient InstructionsNo instructions recorded. Reason for Referral None Reported. 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 2022 Not Available [facility] 3 12:53:23 Candidia sis of vagina 88006511 Active 2022 Not Available [facility] 3 12:53:23 Gastro-e sophagea l reflux disease with esophagi tis 894139534 Active 2024 CHRISTINA PERRY [address] [place], [address], [facility] 5 11:51:23 Acute urinary tract infectio n 878781451 Active 2024 CHRISTINA PERRY [address] [place], [address], [facility] 5 10:03:54 Gastropa resis syndrome 380910339 Active 2024 CHRISTINA PERRY [address] [place], [address], [facility] 5 16:41:14 Dysuria 80689955 Active 2024 Dwayne Vidal, DO [address] [place], [address], [facility] 5 13:13:04 Urinary crystal, calcium oxalate 006680773 Active 2024 CHRISTINA PERRY [address] [place], [address], [facility] 5 11:32:45 Insomnia 079418692 Active 2024 CHRISTINA PERRY [address] [place], [address], [facility] 5 11:53:41 Essentia l hyperten wan 55631617 Active 2017 Not Available [facility] 3 12:53:23 Divertic ulitis 978555293 Active 2017 Not Available [facility] 3 12:53:23 Diabetes mellitus 51631487 Active 2017 Not Available [facility] 3 12:53:23 Sciatica 68125632 Active 2017 Not Available [facility] 3 12:53:23 Recurren t urinary tract infectio n 134132204 Active 2017 Not Available [facility] 3 12:53:23 Painful urinary bladder spasm 2859054 Completed 201712/11/2017November DAPHNE Estevez [address] [place], [address], [facility] 8 10:54:35 Spasm of urinary bladder 858038541 Active 2017 Not Available [facility] 3 12:53:23 Problem Notes None recorded. Medical Equipment None Reported. Allergies Allergen ID Allergen Name Allergen Category Reaction Reaction Severity Criticality Documentation Date Start Date Code Code System Note Provider Name and Address Organization Details Recorded Time 1187 simvastat in medicatio n myalgias (muscle pain) Not available Not available 12/08/2017 61344 [facility] 8 15:41:56 1188 metformin medicatio n diarrhea Not available Not available 12/08/2017 6809 RxNorm Li clements [facility] 8 15:42:14 8918 Cipro medicatio n Not available Not available Not available 11/13/202467426 3 RxNorm CHRISTINA PERRY [address] [place], [address], [facility] 5 11:59:03 Medications [...] No t Available trazodone 50 mg tablet TAKE 1 TABLET BY MOUTH EVERY DAY AT BEDTIME FOR 30 DAYS active Not Available Not Available No t Available pravastatin 40 mg tablet Take 1 tablet [...] Available Not Available fluconazole 200 mg tablet 11/20 completed Not Available Not Available Not Available sucralfate 1 gram tablet TAKE 1 [...] No t Available allopurinol 100 mg tablet TAKE 1 TABLET BY MOUTH EVERY DAY FOR 30 DAYS 2024 active Not Available Not Available Not Avai lable ciprofloxac in 500 mg tablet TAKE 1 [...] completed Not Available Not Available Not Available MASS-ACTIVE [employer] Ultra Test strips USE DIRECTED 1 TO 2 TIMES active Not Available Not Available No t Available cephalexin 500 mg capsule TAKE 1 CAPSULE BY MOUTH EVERY 6 HOURS FOR 5 DAYS 11/20 completed Not Available Not Available Not Available pantoprazol e 40 mg tablet,yordy yed release [...] TAKE 1 TABLET BY MOUTH EVERY DAY 11/20 completed Not Available Not Available Not Available Januvia 100 mg tablet TAKE 1 [...] Details Last Updated DateTime 5 163.83 cm 36.5 kg/m2 47543.5 9 g 78 /min 95 % 95 % 124 mm[Hg] 86 mm[Hg] [facility] 5 09:53:47 Social History Question Answer Notes LastModified by Organizat ion Details LastModified Time Tobacco Smoking Status Former Smoker Not Available [facility] 06/09/2020 03:36:24 What Was The Date Of Your Most Recent Tobacco Screening? 11/20/2024 [email or web address] Information not available 11/20/2024 How Many Years Have You Smoked Tobacco? 2 [id number] Information not available 06/09/2020 Sex: Unknown Functional Status None recorded. Mental Status None recorded. Family History Nothing Reported. Medical History No medical history recorded. Gynecological HistoryNo gynecological history recorded. Obstetrics History GPAL:G 0 P 0 0 0 0 Immunizations Vaccine Type Date Status Note Provider Nam lico and Address Organization Details Recorded Time Influenza, split virus, quadrivalent, preservative 8 completed Cordell [facility]ments [facility] 05/10/2018 11:42:05 influenza, unspecified formulation 4 completed Meli clements [facility] 07/03/2024 08:18:29 Past Encounters Encounter ID Performer Location Encounter Start Date Encounter Closed Date Diagnosis/Indication Diagnosis SNOMED-CT Code Diagnosis ICD10 Code Diagnosis Note [id number] CHRISTINA PERRY [facility] [address] [facility], [place] [address] 11/13/2024 11:28:09 11/13/2024 12:21:16 Dysuria 48964588 R30.0 will set up with urinalysis short course of abxwas started on estrogen cream again Insomnia 841190259 G47.0 1 will have her adjust when she takes her ativan Type 2 selma betes mellitus 03676831 E11.9 needs f/u lab workhas f/u appt next [id number] CHRISTINA PERRY [facility] [address] [facility], [place] [address] 11/20/2024 09:40:29 11/20/2024 11:06:10 Acute urinary tract infection 930286201 N34.2 resolved Candidiasis of vagina 72 279407 B37.31 will start on dual therapy Type 2 selma betes mellitus 24289944 E11.9 6.9% At low risk for fall 439 394686 Z91.81 negative Health Concerns Section Related Observation LastModified by Organization Detai ls LastModified Time None Recorded Concern Status LastModified by Organization Details LastModified Time None Recorded Payers Encounter Date Sequence Insurance Name Policy Number Policy Roy Covered Member ID Roy Member ID Guarantor Name 11/20/2024 1 [place] (MEDICARE REPLACEMENT PPO) [id number] Piedad Gorman [id number] Piedad Gorman Notes Date Note Type Note Provider Name a nd Address Organization Details Recorded Time 11/20/2024 text/html f/u 6 mos dysuria: her urine is clean todayno specific symptoms currently the patient reports that she is doing okay overall T2DM: stable anxiety/insomnia: the patient is feeling okay, tried the extra xanax for sleep but made her very tiredthe patient reports that she is very stressed about her son, he is a drug addict and currently in rehab candidiasis of vagina: resolved depression is fine, anxiety more of an issue for herThe patient denies little pleasure in activities they find enjoyable, feeling depressed, difficulties sleeping, feeling tired or having little energy, change in appetite, feeling guilty, overwhelmed or unmotivated. The patient denies suicidal ideation, thoughts of hurting themselves or others. Their mood is appropriate, they show good judgement and clear understanding of the conversation. They are orientated to time, place and person. They are not expressing any concerning thoughts or actions that would need further investigation and treatment for mental health. Patient presents today for follow-up for Type 2 Diabetes Recent lab showed an A1c of 6.9% The patient has been compliant with medicationsThe complications patient is experiencing are related to the sugar in her urineThe patient has current concerns about related to their diabetes diagnosis the sugarThe patient has been compliant with lifestyle changes including dietary changes, exercise and healthy habits Discussion about feet reveals negative examDiscussion about eyes reveal negative exam Treatment plan going forward is cont medication, recheck BW 3 mos CHRISTINA PERRY [address] [facility], [place], [address], [place] [facility] 11/20/2024 10:26:21 OBGyn Episode No OBEpisode recorded.
--- OUTSIDE RECORDS SUMMARY | 2024-11-20 12:29 | XMS_ITS | Encounter Summary ---
Author Organization [facility] Address [address] [place] [address] Care Team Providers Care Tick Eradicator Name Role Phone Richie Cora NOLEN Primary Care Provider [phone] Encounter Details Date Type Department Care Team (Late st Contact Info) Description 05/18/2021 Abstract [facility] [place] [address] [place], [place] [id number] External, Provider Social History Tobacco Use Types [...] documented as of this encounter Care Teams Tick Eradicator Relationship Specialty Start Date End Date Cora Quiroz APRN [address] [place] [address] [place] [address] PCP - General Family Medicine 05/07/20 05/26/22 documented as of this encounter
--- OUTSIDE RECORDS SUMMARY | 2024-11-20 12:30 | XMS_ITS | Encounter Summary ---
Author Organization [facility] Address [address] [place] [address] Care Team Providers Care Counter Person Name Role Phone Richie Cora TAMANNA Primary Care Provider [phone] Encounter Details Date Type Department Care Team (Late st Contact Info) Description 09/13/2021 Scanned Document [facility] [address] [address] External, Provider Social History Tobacco Use Types [...] documented as of this encounter Care Teams Counter Person Relationship Specialty Start Date End Date Cora Quiroz APRN [address] [place] [address] [place] [address] PCP - General Family Medicine 05/07/20 05/26/22 documented as of this encounter
--- OUTSIDE RECORDS SUMMARY | 2024-11-20 12:30 | XMS_ITS ---
Author Organization [employer] [facility] Address [address] [facility] [address] [place] [address] Care Team Providers Care Financial Rep Name Role Phone JOSEPH HARDWICK Primary Care Provider BRIGETTE Addison Unavailable [phone] Allergies No Known Allergies Results Component Value Reference Range Notes Urinalysis Reviewed date:06/16/2023 02:50:57 PM Interpretation: Performing Lab: Notes/Report: NITRITE POS PH 5.0 PROTEIN TRACE S.G 1.015 WBC MOD GLUCOSE NEG KETONES NEG UROBILINOGEN NEG BILIRUBIN NEG BLOOD NEG URINE CULTURE Reviewed date:06/19/2023 08:35:38 AM Interpretation: Performing Lab:Testing performed or reported by [facility], a Service of [facility], [address] [place] [address] Akash Silverman MD, Professor Criminal Justice [facility]# [id number] Notes/Report: SPECIMEN DESCRIPTION URINE SPECIAL REQUESTS NONE [...] 23 Encounters Encounter Location Date Provider Diagnosis [address] [place] [address] 06/16/2023 BRIGETTE FERNANDO Dysuria R30.0 Assessments Encounter [...] * JOSE RAFAEL URBINAEDOB:1955 (68 yo F)Acc No.[id number]:06/16/2023 PROGRESS NOTES Patient:?KIZZY URBINA Provider:?BRIGETTE FERNANDO MD :1955???Age:68 Y???Sex:Female D ate:06/16/2023 Address:[address] [place] [address], [facility] Pcp:JOSEPH HARDWICK Subjective: * Chief Complaints: * ? UTI * HPI: ???FILM PRODUCER (Problems):?68 year old female presents with c/o [...] lower back.?Admits?Painful urination.? * Medical History:? * Deployment Technician History:?/ Para?2/2.?Sexual activity?not currently sexually active.?Last Pap [...] pleasant, well nourished, in no acute distress, rental coordinator present in room.?ABDOMEN:?soft, nontender, nondistended, bowel sounds [...] NEG * ELIS Dorsey 06/16/2023 1:17:29 PM >ABDULLAHIBRIGETTE She 06/16/2023 2:50:29 PM > Notes: plenty of fluids orally , AZO as needed , Tylenol 3-4 times a day as needed , Call if not better??2.?Others? Start Bactrim DS Tablet, 800-160 MG, 1 tablet, Orally, Twice a day, 3 days, 6 Tablet, Refills 0. ? * Procedure Codes:? * Follow Up:?prn * Images: Billing Information: * Visit Code:? 10875 Office Visit, Est Pt., Level 3. * Procedure Codes:? * Sign off status: Completed true * Provider:?BRIGETTE FERNANDO MD Date:?2022 Generated for Rigo farmer/Jeanine/eTransmitting on:?11/20/2024 12:30 PM EDT History and Physical Notes * HPI (History of Present Illness) Category Sub-Category Detail Notes Category Not es FILM PRODUCER (Problems) Urinary Tract Infection (symptoms of): Describes [...] , well nourished, in no acute distress, rental coordinator present in room ABDOMEN: soft, nontender, non distended, bowel sounds present, no masses palpable, no hepatosplenomegaly BACK: normal, no costovert ebral angle tenderness
--- OUTSIDE RECORDS SUMMARY | 2024-11-20 12:30 | XMS_ITS | Encounter Summary ---
Author Organization [facility] Address [address] [place] [address] Care Team Providers Care Credit Negotiator Name Role Phone Richie Cora NOLEN Primary Care Provider [phone] Encounter Details Date Type Department Care Team (Late st Contact Info) Description 08/19/2021 Abstract [facility] [place] [address] [place], [place] [id number] External, Provider Social History Tobacco Use Types [...] documented as of this encounter Care Teams Credit Negotiator Relationship Specialty Start Date End Date Cora Quiroz APRN [address] [place] [address] [place] [address] PCP - General Family Medicine 05/07/20 05/26/22 documented as of this encounter
--- OUTSIDE RECORDS SUMMARY | 2024-11-20 12:30 | XMS_ITS | Data Portability ---
Author Organization [facility] Internal [facility], Home Service Address [address] [place] [address] Assessment Encounter Date Assessment Date Assessment LastModified [...] urinalysi s complete, reflex culture 2024 025 [facility], [address] [place] [address], [id number], 11/20/2024 10:26:20 urinalysi s, dipstick 2024 025 [facility], [address] [facility], [facility] [address], [place], [address], 11/13/2024 12:53:40 urinalysi s complete, reflex culture 2024 025 [facility], [address] [place] [address], [id number], 11/14/2024 14:17:33 CMP, serum or plasma 2024 025 [facility], [address] [place] [address], [address], 11/14/2024 14:17:32 hemoglobi n A1c, QN, blood 2024 025 [facility], [address] [place] [address], [address], 11/14/2024 14:17:33 CBC w/ auto diff 2024 025 [facility], [address] [place] [address], [address], 11/14/2024 14:17:33 H pylori urea breath test, co2 infrared 2024 025 [email or web address] [facility] (Centralized Electronic Ordering - All Locations), Patient Can Go To The Location Of Their Choice, [address] 08/09/2024 12:08:02 CMP, serum or plasma 2023 024 [facility], [address] [place] [address], [address], 05/24/2024 10:53:35 lipid panel, blood 2023 024 [facility], [address] [place] [address], [address], 05/24/2024 10:53:35 hemoglobi n A1c, QN, blood 2023 024 [facility], [address] [place] [address], [address], 05/24/2024 10:53:35 CBC w/ auto diff 2023 024 [facility], [address] [place] [address], [address], 05/24/2024 10:53:35 Referral gastroent erologist referral 2023 024 frida Moody MD, [address] [place] [address], [id number], 05/27/2024 09:52:46 Procedures None recorded. Surgeries None recorded. Imaging RF, upper gastroint estinal tract, w/ contrast PO 2024 025 [facility], [address] [facility], [place], [address], 08/15/2024 11:42:49 Medication Orders trazodone 50 mg tablet 2024 025 [facility], [address] [place] [address], [address], 11/13/2024 12:05:38 cephalexi n 500 mg capsule 2024 025 [facility], [address] [place] [address], [address], 11/20/2024 09:47:36 Januvia 100 mg tablet 2024 025 [facility], [address] [place] [address], [address], 09/20/2024 11:41:47 allopurin ol 100 mg tablet 2024 025 [facility], [address] [place] [address], [address], 09/20/2024 11:41:46 clotrimaz ole 1 % vaginal cream 2024 025 [facility], [address] [place] [address], [address], 09/20/2024 11:41:46 fluconazo le 200 mg tablet 2024 025 [facility], [address] [place] [address], [address], 11/20/2024 09:47:47 pantopraz ole 40 mg tablet,de layed release 2024 025 [facility], [address] [place] [address], [address], 08/09/2024 11:57:23 sucralfat e 1 gram tablet 2024 025 [email or web address] [facility], [address] [facility], [place], [address], 09/20/2024 11:05:21 Patient TargetsNo targets recorded. Patient InstructionsNo instructions recorded. Reason for Referral Control Board Operator Referral for Screening for malignant neoplasm of colon due for 5 year, also patient is having more GI symptoms, pain, constipation Referring Physician: Nita Mccarthy, Internal Medicine, Encounter Date: 05/24/2024 Results Created Date Observation Date Name Description Value Unit Range Abnormal Flag Note LastModifiedBy Organization Detail LastModifiedTime 08/15/1908/15/2024 RF, upper gastr ointe alvin l tract , w/ contr ast PO No observ ation record ed. [address], [address], 08/16/2024 16:40:35 Result Notes None recorded. Problems Name Problem SNOMED Code Status Onset Date Resolution Date Notes Provider Name and Address Organization Details Recorded Time Mixed hyperlip idemia 328440321 Active 2018 Not Available [facility] 3 12:53:23 Atrophic vaginiti s 26032999 Active 2018 Not Available [facility] 3 12:53:23 Gastroes ophageal reflux disease 356870488 Active 2021 Not Available [facility] 3 12:53:23 Type 2 diabetes mellitus 05579152 Active 2022 Not Available [facility] 3 12:53:23 Bilatera l carpal tunnel syndrome 80980179431 834429 Active 2022 Not Available [facility] 3 12:53:23 Squamous cell carcinom a 769590575 Active 2022 Not Available [facility] 3 12:53:23 Candidia sis of vagina 71186094 Active 2022 Not Available [facility] 3 12:53:23 Gastro-e sophagea l reflux disease with esophagi tis 875902166 Active 2024 CHRISTINA PERRY [address] [place], [address], [facility] 5 11:51:23 Acute urinary tract infectio n 314751616 Active 2024 CHRISTINA PERRY [address] [place], [address], [facility] 5 10:03:54 Gastropa resis syndrome 545890851 Active 2024 CHRISTINA PERRY [address] [place], [address], [facility] 5 16:41:14 Dysuria 35798062 Active 2024 Dwayne Vidal DO [address] [place], [address], [facility] 5 13:13:04 Urinary crystal, calcium oxalate 412317170 Active 2024 CHRISTINA PERRY [address] [place], [address], [facility] 5 11:32:45 Insomnia 638073598 Active 2024 CHRISTINA PERRY [address] [place], [address], [facility] 5 11:53:41 Essentia l hyperten wan 94280725 Active 2017 Not Available [facility] 3 12:53:23 Divertic ulitis 013207800 Active 2017 Not Available [facility] 3 12:53:23 Diabetes mellitus 11011927 Active 2017 Not Available [facility] 3 12:53:23 Sciatica 69539135 Active 2017 Not Available [facility] 3 12:53:23 Recurren t urinary tract infectio n 980491794 Active 2017 Not Available [facility] 3 12:53:23 Painful urinary bladder spasm 6586429 Completed 201712/11/2017November DAPHNE Estevez [address] [place], [address], [facility] 8 10:54:35 Spasm of urinary bladder 772214528 Active 2017 Not Available [facility] 3 12:53:23 Problem Notes None recorded. Procedures Surgical History None recorded. Imaging Results Imaging Date Name Status LastModified by Organization Details LastModified Time 08/15/2024 RF, upper gastrointestinal tract, w/ contrast PO completed [facility] [address] [place], [address], 08/16/2024 16:40:35 Procedure Notes None recorded. Medical Equipment None Reported. Allergies Allergen ID Allergen Name Allergen Category Reaction Reaction Severity Criticality Documentation Date Start Date Code Code System Note Provider Name and Address Organization Details Recorded Time 1187 simvastat in medicatio n myalgias (muscle pain) Not available Not available 12/08/2017 69603 [facility] 8 15:41:56 1188 metformin medicatio n diarrhea Not available Not available 12/08/2017 6809 RxNorm Li clements [facility] 8 15:42:14 8918 Cipro medicatio n Not available Not available Not available 11/13/202405217 3 RxNorm CHRISTINA PERRY [address] [place] [address], [address], [facility] 5 11:59:03 Medications [...] completed Not Available Not Available Not Available Pixate Ultra Test strips USE DIRECTED 1 TO [...] Updated DateTime 4 163.83 cm 37.6 kg/m2 811092. 22 g 65 /min 96 % 96 % 124 mm[Hg] 74 mm[Hg] [facility] 4 10:31:07 Date Recorded Body height Body mass index (BMI) Body weight Heart rate Oxygen saturation Oxygen saturation in Arterial blood by Pulse oximetry Systolic blood pressure Diastolic blood pressure Provider Name and Address Organization Details Last Updated DateTime 5 163.83 cm 37 kg/m2 80037.6 5 g 86 /min 97 % 97 % 120 mm[Hg] 80 mm[Hg] Meli [facility] 5 11:33:27 Date Recorded Body height Body mass index (BMI) Body weight Heart rate Oxygen saturation Oxygen saturation in Arterial blood by Pulse oximetry Systolic blood pressure Diastolic blood pressure Provider Name and Address Organization Details Last Updated DateTime 5 163.83 cm 36.7 kg/m2 71544.5 4 g 72 /min 96 % 96 % 116 mm[Hg] 74 mm[Hg] Meli [facility] 5 11:11:45 Date Recorded Body height Heart rate Oxygen saturation Oxygen saturation in Arterial blood by Pulse oximetry Systolic blood pressure Diastolic blood pressure Provider Name and Address Organization Details Last Updated DateTime 5 163.83 cm 75 /min 98 % 98 % 128 mm[Hg] 82 mm[Hg] [facility] Internal [facility] 5 11:42:16 Date Recorded Body height Body mass index (BMI) Body weight Heart rate Oxygen saturation Oxygen saturation in Arterial blood by Pulse oximetry Systolic blood pressure Diastolic blood pressure Provider Name and Address Organization Details Last Updated DateTime 5 163.83 cm 36.5 kg/m2 55191.5 9 g 78 /min 95 % 95 % 124 mm[Hg] 86 mm[Hg] [facility] 09:53:47 Social History Question Answer Notes LastModified by Organizat ion Details LastModified Time Tobacco Smoking Status Former [facility]oker Not Available [facility] 06/09/2020 03:36:24 What Was The Date Of Your Most Recent Tobacco Screening? 11/20/2024 [email or web address] Information not available 11/20/2024 How Many Years Have You Smoked Tobacco? 2 [id number] Information not available 06/09/2020 Sex: Unknown Functional Status None recorded. Mental Status None recorded. Family History Nothing Reported. Medical History No medical history recorded. Gynecological HistoryNo gynecological history recorded. Obstetrics History GPAL:G 0 P 0 0 0 0 Immunizations Vaccine Type Date Status Note Provider Sinan barfield and Address Organization Details Recorded Time Influenza, split virus, quadrivalent, preservative 8 completed Cordell Vidal tyree [facility] 05/10/2018 11:42:05 influenza, unspecified formulation 4 completed Meli Esparza [facility] 07/03/2024 08:18:29 Past Encounters Encounter ID Performer Location Encounter Start Date Encounter Closed Date Diagnosis/Indication Diagnosis SNOMED-CT Code Diagnosis ICD10 Code Diagnosis Note [id number],[place] [address] 12/11/2017 10:10:13 12/11/2017 12:04:52 Essential hypertension 26878998 I10 good control Diabetes mellitus 121118 09 E11.9 typically, noncomplia nt with appts/labs , but compliant with diet and meds a1c at goal discussed weight management Sciatica 59293091 M54.30 stable with gabapentin sparing use Anxiety 98830798 F41.9 slightly worsened, will temporaril y increase dose to help manage current situation Carpal guanakito patricio syndrome 61840413 G56.03 night splint, nsaids, consider ortho in the future, pt declines ortho at this point [id number], [place] [address] 09/11/2018 10:57:11 09/11/2018 12:08:44 Increased frequency of urination 452653427 R35.0 will culture urine, ua not suggestive of infection Vaginitis 91844609 N76.0 continue treatment for candidal infection if not improvemen t, then can trial estrace cream [id number] [facility] [address] [facility], [place] [address] 09/28/2018 11:47:50 09/28/2018 14:06:57 Vaginitis 58739856 N76.0 will check urine culture will defer abx as this teacher worsen yeast growth if cx pos will rx at that time - low suspicion of uti if diflucan successful , will then start estrace for vaginal dryness to prevent future recurrence s if all fails, recommend seeing DIRECTOR ECONOMIC any signifiant in meantime, please f/u prn Urinary incontinence 165 845703 R32 female stress incontinen ce generally stable Diabetes mellitus 005841 09 E11.9 typically, noncomplia nt with appts/labs , but compliant with diet and meds a1c at goal discussed weight management [id number] Carolny Quinones, SHAJI, S [facility] [address] [facility],[place] [address] 11/26/2018 14:21:59 11/26/2018 15:38:26 Mixed hyperlipidemia 819154103 E78.2 Recurrent urinary tract infection 908567218 N39.0 Essential hypertension 51317864 I10 stable Diabetes mellitus 810863 09 E11.9 A1C 7.5 Atrophic vaginitis 24919 000 N95.2 [id number] November [facility] [address] [facility],[place] [address] 03/26/2019 14:04:58 03/26/2019 14:48:00 Type 2 diabetes mellitus 94541192 E11.9 a1c 8.0 in UC increase glimepirid e Upper abdominal pain 831 98287 R10.10 resolved as well as chest pain pain did localize to the RUQ, but that has also resolved Right uppe r quadrant pain 286469378 R10.11 declines u/s to check for gallstones /fatty liver will get u/s if pain comes back [id number] November Zenaida, [facility] [address] [facility],[place] [address] 04/12/2019 13:36:46 04/12/2019 14:29:45 Excessive belching 599400592 R14.2 Gastroesop hageal reflux disease 618895765 K21.0 Epigastric pain 24933879 R10.13 ? gerd ? h. pylori ? nsaid induced ulcer Non-alcoho lic fatty liver 435194218 K76.0 Common lashawn e duct calculus 335051464 K80.50 [id number] Dwayne Vidal, [facility] [address] [facility],[place] [address] 08/05/2019 11:14:57 08/05/2019 11:50:16 Dysuria 46701041 R30.9 Recurred after tx with nitro and TMP/SMX Acute urin heide tract infection 843859976 N39.0 UA shows trace leuk with no nitrite but this is after 2 days of abx still feels frequency and pressure but feels sl better we will cont the bactrim for full 10 days now we are committed to this but its poss a issue when she took one dose then stopped Diabetes mellitus 256814 09 E11.9 sugars hav e been elevated and this is not helping as she know s Atrophic vaginitis 97940 000 N95.2 using estrogen creme now per heavy forger helper she needs to make an pt for f/u [id number] CHRISTINA PERRY Internal [facility] [address] [facility], [place] [address] 01/01/2020 14:02:54 01/01/2020 14:42:00 Osteoarthritis of left hip joint 1715410110 47340 M16.12 will treat with prednisone taper, did [...] is still having a problem Diabetes mellitus 076101 09 E13.9 will get bw done [id number] CHRISTINA PERRY Internal [facility] [address] [facility] [address] [address] 07/25/2022 14:59:25 07/25/2022 16:34:05 Essential hypertension 30699543 I10 BP is excellent Diabetes mellitus 75515876 will get bw done Active or passive immunization 334705554 Z23 patient advised she is due for flu shot, tdap, pneu & shingles Gastroesop hageal reflux disease 995258293 K21.9 stable Screening mammography 24 457093 Z12.31 [place] [id number] CHRISTINA PERRY [facility] [address] [facility],[place] [address] 04/26/2023 14:21:29 04/26/2023 15:42:57 Diabetes mellitus 16174325 E13.9 d/c the kandace govea hernandez gordonyanna her lab work was excellent and she has made major advancemen ts Essential hypertension 88095234 I10 BP is excellent Mixed hyperlipidemia 267 605809 E78.2 stable Bilateral carpal tunnel syndrome 2659516825 3102821 G56.03 will hold on ortho referralwi ll let me know when she is ready to go Squamous c ell carcinoma 524467826 C80.1 on her facehas fu with [facility] Type 2 selma betes mellitus 50259361 E11.9 [id number] CHRISTINA PERRY [facility] [address] [facility],[place] [address] 05/24/2024 10:21:44 05/24/2024 10:58:57 Renewal of prescription 280224657 Z76.0 stable Depression screening 171 920300 Z13.31 SCREENING NEGATIVE Screening for malignant neoplasm of colon 649201041 Z12.11 needs f/u with 5 years Type 2 selma betes mellitus 42023100 E11.9 needs f/u lab work Essential hypertension 34856525 I10 BP is excellent [id number] CHRISTINA PERRY [facility] [address] [facility],[place] [address] 08/09/2024 11:22:34 08/09/2024 12:15:38 Gastro-esophageal reflux disease with esophagitis 679806648 K21.00 has endoscope scheduled in September, will see if we can get it moved up [id number] CHRISTINA PERRY [facility] [address] [facility] [address],[place] [address] 09/20/2024 10:59:13 09/20/2024 13:25:24 Urinary crystal, calcium oxalate 213505979 R82.998 will set up with allopurino l Candidiasis of vagina 72 051249 B37.31 will start on dual therapy Type 2 selma betes mellitus 75616480 E11.9 needs f/u lab work [id number] CHRISTINA PERRY [facility] [address] [facility],Grecia [place] [address] 11/13/2024 11:28:09 11/13/2024 12:21:16 Dysuria 75185300 R30.0 will set up with urinalysis short course of abxwas started on estrogen cream again Insomnia 268299856 G47.0 1 will have her adjust when she takes her ativan Type 2 selma betes mellitus 79482884 E11.9 needs f/u lab workhas f/u appt next [id number] CHRISTINA PERRY [facility] [address] [facility],[place] [address] 11/20/2024 09:40:29 11/20/2024 11:06:10 Acute urinary tract infection 322957635 N34.2 resolved Candidiasis of vagina 72 456637 B37.31 will start on dual therapy Type 2 selma betes mellitus 90236097 E11.9 6.9% At low risk for fall 439 002720 Z91.81 negative Health Concerns Section Related Observation LastModified by Organization Detai ls LastModified Time None Recorded Concern Status LastModified by Organization Details LastModified Time None Recorded Advance Directives Directive None Recorded Payers Encounter Date Sequence Insurance Name Policy Number Policy Roy Covered Member ID Roy Member ID Guarantor Name 05/24/2024 1 [place] PPO) [id number] Piedad Gorman [id number] Piedad Gorman 08/09/2024 1 [place]PO) [id number] Piedad Gorman [id number] Piedad Gorman 09/20/2024 1 [place]PO) [id number] Piedad Gorman [id number] Piedad Gorman 11/13/2024 1 [place]PO) [id number] Piedad Gorman [id number] Piedad Gorman 11/20/2024 1 [place]PO) [id number] Piedad Gorman [id number] Piedad Gorman Notes Date Note Type Note Provider Name and Address Organization Details Recorded Time 4 text/html medication f/u colonoscopy: the patient reports that she gets one done very 5 years due to hx of precancerous polyphaving constipation and abdominal pain will send referral for [facility]: today in the office the patient BP is 124/74 L arm sittingthe patient is doing well on the BP medication with no side effects and no adjustment of their medications needed today at the appointmentwell-control led on medicationdenies chest pain, sob, ankle swelling, orthopnea, palpitations depression screening: some depression from situation with her kids, situational needs lab work CHRISTINA PERRY [address] [place], [address], [facility] 05/24/2024 10:58:01 5 text/html ER [...] the patient having recent colonoscopy/endoscope with Dr. Luceor recent endoscope on file, and she is booked out to [facility] send over notice of ER visit to her office with the Upper GI will start on high dose on pantoprazole CHRISTINA PERRY [address] [place], [address], [facility] 08/09/2024 12:12:13 5 text/html c/o [...] januvia to 100 mg CHRISTINA PERRY [address] [place], [address], [facility] 09/20/2024 11:52:01 5 text/html c/o [...] instead needs lab work CHRISTINA PERRY [address] [place], [address], [facility] 11/13/2024 12:28:57 5 text/html f/u 6 mos dysuria: her urine [...] recheck BW 3 mos CHRISTINA PERRY [address] [place], [address], [facility] 11/20/2024 10:26:21 OBGyn Episode No OBEpisode recorded.
--- OUTSIDE RECORDS SUMMARY | 2024-11-20 12:30 | XMS_ITS ---
Author Organization [facility] Address [address] [address] Care Team Providers Care Public Policy Mediator Name Role Phone JOSEPH HARDWICK Primary Care Provider BRIGETTE Addison [phone] REASON FOR VISIT Urine results Encounters Encounter Location Date Provider Diagnosis [facility] [address] [place] [address] 06/19/2023 BRIGETTE FERNANDO Plan Of Treatment No Information Progress Notes * JOSE RAFAEL URBINAEDOB:1955 (68 yo F)Acc No.[id number]:06/19/2023 Patient:?KIZZY URBINA :1955???Age:68 Y???Sex:Female Address:[address] [place] [address], [place], [address] * true * Date:? Generated for Apolinari darian/Jeanine/eTransmitting on:?11/20/2024 12:29 PM EDT
--- OUTSIDE RECORDS SUMMARY | 2024-11-20 12:30 | XMS_ITS | Clinical Summary ---
Author Organization [place] [address] [facility] Address [address] [facility] [place] [place] [address] Care Team Providers Care Position Clerk Name Role Phone Unavailable Primary Care Provider Unavailabl e Allergies No known active allergies Medications blood sugar diagnostic test stripsIndication s:Type 2 diabetes mellitus without complication, without long-term current use of insulin 1 strip by Other route every morning. [...] complication, without long-term current use of insulin Take 1 tablet (100 mg total) by [...] complication, without long-term current use of insulin Take 1 tablet (4 mg total) by [...] long-term current use of insulin (HC Code) LIPID PANEL Routine 01/12/2022 8:35 [...] * (ABNORMAL) POCT glycosylated hemoglobin (HgbA1c), total (99391) (02/24/2022 11:57 AM EDT) [facility] Hemoglobin A1C, POC 8.8 4.0 - 6.0 % [facility] Test Lot Number [id number] [facility] Test Lot Exp Date 09/21/23 Date Format: MM/DD/YYYY [facility] 02/24/2022 11:5 7 AM EDT Cora Quiroz APRN POINT OF CARE TEST ORDERABLES Final Result Performing Organization Address [facility]/ZIP Co de Phone Number [facility] * Hepatitis C Ab with reflex to HCV PCR (01/12/2022 8:35 AM EDT) [facility] Hepatitis C Antibody Negative Negative 01/12/2022 1:55 PM EDT [facility] Blood Venipuncture / Unknown 01/12/2022 8:35 AM EDT 01/12/2022 8:35 AM EDT Cora Quiroz APRN LAB BLOOD ORDERABLES Final Res ult [facility] [address] [place] [address] * (ABNORMAL) Lipid panel (01/12/2022 8:35 AM EDT) [facility] Cholesterol 207(H) See Comment mg/dL 01/12/2022 12:47 PM EDT [facility] Comment: Cholesterol Reference Range: ? Desirable: ?? <200 mg/dL ? Borderline: ??200-240 mg/dL ? High Risk: ?? >240 mg/dL HDL 48 See Comment mg/dL 01/12/2022 12:47 PM EDT [facility] Comment: HDL Reference Range: Low: <40 High: > or = 60 Triglycerides 123 See Comment mg/dL 01/12/2022 12:47 PM EDT [facility] Comment: Triglyceride Reference Range: ?Normal: ? <150 mg/dL ?Borderline High: ??150-199 mg/dL ?High: ? 200-499 mg/dL ?Very High: ?>or= 500 mg/dL LDL Calculated 134(H) See Comment mg/dL 01/12/2022 12:47 PM [facility] Comment: LDL Reference Range: Optimal: ? <100 mg/dL Near/Above Optimal: ??100-129 mg/dL Borderline High: ? 130-159 mg/dL High: ?160-189 mg/dL Very High: ? >or= 190 mg/dL Blood Venipuncture / Unknown 01/12/2022 8:35 AM EDT 01/12/2022 8:35 AM EDT us Cora Quiroz [employer] LAB BLOOD ORDERABLES Final Res ult [facility] [address] [place] [address] * Mammography Diagnostic Arian Left (08/11/2021 3:00 PM EST) Anatomical Region Laterality Modality Breast Left Mammography 08/11/2021 3:02 PM EST Impressions 08/11/2021 3:08 PM EST No mammographic evidence of malignancy. LATERALITY Left BI-RADS Birad 2 - Benign RECOMMENDATION Follow up mammogram 1 yr DENSITY D2-Scattered fibroglandular Reported and signed by: ??Stepan Whalen MD Narrative 08/11/2021 3:08 PM EST MAMMO DIAGNOSTIC ARIAN LEFT([facility]) HISTORY: left breast focal asymmetry. [...] Whalen MD - 08/11/2021 MAMMO DIAGNOSTIC ARIAN LEFT([facility]) HISTORY: left breast focal asymmetry. [...] Dexa Bone Density (07/27/2020 2:22 PM EST) [facility] IP [facility] ZIP [facility] Anatomical Region Laterality Modality Radiographic Esperanza ging 07/27/2020 3:02 PM EST Narrative 07/27/2020 3:02 [place] [address] DEXA BONE DENSITY KIZZY URBINA ? Sex: F ??: [id number] ?? Service Date: 2020-07-27 14:11:00 DXA WITHOUT [...] Procedure Note Keith Meadows MD - 07/27/[address] [place] [address] DEXA BONE DENSITY KIZZY URBINA Sex: F : [id number] Service Date: 2020-07-27 14:11:00 DXA WITHOUT PRIOR [...] Most Recently Relevant to Health Maintenance Insurance [facility] Member Subscriber Plan / Payer ( fective 2020-Present) Name:Kizzy Urbina Relation to Subscriber:Self Name:Kizzy Urbina Payer ID:[id number] (NAIC) Type:Not on file Address: [place] [id number] [facility] Member Subscriber Plan / Payer (Ef fective 2020-Present) Name:Kizzy Urbina Relation to Subscriber:Self Name:Kizzy Urbina Payer ID:[id number] (NAIC) Type:Not on file Address: [place] [id number] [facility]
--- OUTSIDE RECORDS SUMMARY | 2024-11-20 12:30 | XMS_ITS | Encounter Summary ---
Author Organization [facility] Address [address] [place] [address] Care Team Providers Care Engineering Teacher Name Role Phone Richie Cora TAMANNA Primary Care Provider [phone] Encounter Details Date Type Department Care Team (Late st Contact Info) Description 09/15/2021 Scanned Document [facility] [address] [address] External, Provider Social History Tobacco Use Types [...] documented as of this encounter Care Teams Engineering Teacher Relationship Specialty Start Date End Date Cora Quiroz APRN [address] [place] [address] [place] [address] PCP - General Family Medicine 05/07/20 05/26/22 documented as of this encounter
[2024-11-20 15:32] LABS: Appearance Urine Clear; Color Urine Yellow; Glucose Urine UA Negative (Negative); Leukocyte Esterase Urine Negative (Negative); Nitrite Urine Negative (Negative); Urine Blood Negative (Negative); Urine Ketones Negative (Negative); Urine Protein Negative (Neg-Trace)
== END 2024-11-20 10:36 | disposition home or self-care (01) ==
LOC: HO.MANLNP 10:35
PROVIDERS: Visit Provider Physician Assistant
DX: N34.2 Other urethritis (principal)
CPT/HCPCS: 81003

== ENCOUNTER 2025-06-09 11:02 | Outpatient (REF) | payer MEDICARE, SELFPAY ==
[2025-06-09 13:23] LABS: MANUAL DIFF FLAG NO
[2025-06-09 13:34] LABS: Hematocrit 38.6 % (37.0-47.0); Hemoglobin 12.2 g/dl (12.0-16.0); Imm Gran Abs Auto 0.03 X10*3/uL (0.00-0.03); Imm Gran Pct Auto 0.4 % (0.0-0.4); Lymphocytes Absolute Auto 2.2 X10*3/uL (1.2-4.9); Mean Corpuscular HGB Conc 31.6 g/dl (31.0-35.0); Mean Corpuscular Hemoglobin 30.3 pg (27.0-33.0); Mean Corpuscular Volume 96.0 fL (80.0-98.0); NRBC Abs Auto 0.000 X10*3/uL (0.0-0.012); NRBC Pct Auto 0.0 /100WBC (0.0-0.2); Platelet Count 313 X10*3/uL (160-400); Red Blood Count 4.02 X10*6/uL (4.20-5.50); White Blood Count 7.5 X10*3/uL (4.8-10.8)
[2025-06-09 13:45] LABS: Hemoglobin A1C 199.6662 umol/L; Total Hemoglobin (HGBA1C) 3207.3331 umol/L
--- OUTSIDE RECORDS SUMMARY | 2025-06-09 13:58 | XMS_ITS | Patient Health Record ---
Author Organization [facility] Address [address] [place] [address] [address] [place] [address] Care Team Providers Care Broadcast Maintenance Technician Name Role Phone JOSEPH HARDWICK Primary Care Provider BRIGETTE Addison Unavailable [phone] Allergies No Known Allergies Results Component Value [...] meal of the day Orally Once a day; Duration: 30 days Active Lisinopril 10 MG 1 tablet Orally Once a day; Duration: 30 days Active Clotrimazole-Betamethasone 1-0.05 % 1 application Externally Twice a day; Duration: 10 days 06/13/2023 Active ALPRAZolam 0.5 MG 1/2 tablet Orally On ce a day Active Propranolol HCl ER 160 MG 1 capsule Oral ly Once a day; Duration: 30 day(s) Active Estrace 0.1 MG/GM 1 gram Vaginal twice weekly; Duration: 90 days Active Gabapentin 100 MG 1 capsule Orally Onc e a day; Duration: 30 day(s) Active Januvia 100 MG 1 [...] Status Risk Notes Problem Postmenopausal atrophic vaginitis (59065058) Postmenopausal atrophic vaginitis (N95.2) Active confirmed Problem SI - Stress incontinence (53349996) Stress incontinence (female) (male) (N39.3) Active confirmed Problem Type II diabetes mellitus without complication (480886978) Type 2 diabetes mellitus without complications (E11.9) Active confirmed Problem Disorder of carbohydrate metabolism (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 Vital Signs Temperature 98.2 degrees Fahrenheit 10/04/2024 Blood pressure diastolic 64 mm Hg 10/04/2024 Height 66 in 10/04/2024 Blood pressure systolic 112 mm Hg 10/04/2024 Weight 214 lbs 10/04/2024 BMI 34.54 kg/m2 10/04/2024 Encounters Encounter Location Date Provider Diagnosis [address] [address] 10/04/2024 BRIGETTE FERNANDO Urgency of urination R39.15 [...] End Date BCBS MEDICARE PPO [address] [place] [address] [id number] KIZZY URBINA Self - patient is the insured Medical (General) History Medical History History ICD Code Diverticulosis of intestine, part unspecified, without perforation or abscess without bleeding K57.90 Type 2 diabetes mellitus with unspecifie d complications E11.8 Headache R51 Essential (primary) hypertension I10 Surgical History Surgery Date(Month/Year) Appendectomy 1964 Tonsillectomy 1960's x 1 1985 Hysterectomy 1993 Breast Biopsy Colonoscopy 2014 Hospitalization History Reason Date(Month/Year) See Surgical Hx 1 Vaginal Delivery
--- OUTSIDE RECORDS SUMMARY | 2025-06-09 13:58 | XMS_ITS | Encounter Summary ---
Author Organization [facility] Address [address] [place] [address] Care Team Providers Care Biometrics Analyst Name Role Phone RichieCora TAMANNA Primary Care Provider [phone] Encounter Details Date Type Department Care Team (Late st Contact Info) Description 09/15/2021 Scanned Document [facility] [address] [id number] External, Provider Social History Tobacco Use Types [...] documented as of this encounter Care Teams Biometrics Analyst Relationship Specialty Start Date End Date Cora Quiroz APRN [address] [place] [address] [place] [id number] PCP - General Family Medicine 05/07/20 05/26/22 documented as of this encounter
--- OUTSIDE RECORDS SUMMARY | 2025-06-09 13:58 | XMS_ITS | Encounter Summary ---
Author Organization [facility] Address [address] [facility] [address] [place] [address] Phone Care Team Providers Care Verify Rep Name Role Phone Dwayne Vidal Primary Care Provider [phone] Encounter Details Date Type Department Care Team (Late st Contact Info) Description 03/11/2025 Procedure Pass [facility] Endoscopy Admitting Dept Virtual Department [address] [place] [address] Social History Tobacco Use Types Packs/Day Years Used Date Smoking Tobacco: Former Cigarettes 1 968 1969 Smokeless Tobacco: Never Alcohol Use Standard Drinks/Week Comments Never 0 (1 standard drink = 0.6 oz pur e alcohol) Education Answer Date Recorded Are you interested in more education? Not on leeanna e 12/02/2022 Are you concerned about learning? Not on file 12/02/2022 No 12/02/2022 No 12/02/2022 Digital Access Answer Date Recorded No 01/02/2023 No 01/02/2023 Reliable internet access at home? Not on file 01/02/2023 Device with a working camera? Not on file Intimate Partner Violence Answer Date R ecorded Are you denied basic needs s uch as food, clothing, or medical care? No 03/11/2025 In the past 12 months have y ou been in a relationship with a person who hurts, threatens, or tries to control you? No 03/11/2025 Are you denied basic needs s uch as food, clothing, or medical care? No 03/11/2025 In the past 12 months have y ou been in a relationship with a person who hurts, threatens, or tries to control you? No 03/11/2025 Comments No Sex and Gender Information Value Date Recorded Sex Assigned at Not on file Legal Sex Female 9:55 PM EDT Gender Identity Not on file Sexual Orientation Not on file documented as of this encounter Functional Status * Calculated C-SSRS Risk Score (Lifetime/Recent) Answer Date of Assessment Author No Risk Indicated 03/11/2025 8:45 AM EDT Deyanira Sands RN * [place] Suicide Severity Rating Scale (Screener/Recent Self-Report) Question Answer Date of Assessment Author 1. Wish to be (Past 1 Month) No 025 8:45 AM EDT Deyanira Sands RN 2. Non-Specific Active Suici john Thoughts (Past 1 Month) No 03/11/2025 8:45 AM EDT Deyanira Sands RN 6. Suicidal Behavior (Lifetime) No 8:45 AM EDT Deyanira Sands RN documented as of this encounter Plan of Treatment Not on file documented as of this encounter Visit Diagnoses Not on filedocumented in this encounter Care Teams Verify Rep Relationship Specialty Start Date End Date Dwayne Vidal DO [address] [place] [address] [email or web address] PCP - General Internal Medicine 11/27/24 documented as of this encounter Additional Source Comments The information contained in this document represents components of the legal health record. It is not the complete legal health record.[facility]
--- OUTSIDE RECORDS SUMMARY | 2025-06-09 13:58 | XMS_ITS | Encounter Summary ---
Author Organization [facility] Address [address] [facility] [address] [place] [address] Phone Care Team Providers Care Farm Reporter Name Role Phone Dwayne Vidal DO Primary Care Provider [phone] Dwayne Vidal DO Primary Care Provider [phone] Encounter Details Date Type Department Care Team (Late st Contact Info) Description 10/16/2023 Procedure Pass [address] [address] Social History Tobacco Use Types Packs/Day Years Used Date Smoking Tobacco: Former Cigarettes 1 968 - 1969 Smokeless Tobacco: Never Alcohol Use Standard [...] with a working camera? Not on file Comments No Sex and Gender Information Value Date Recorded Sex Assigned at Not on file Legal Sex Female 9:55 PM EDT Gender Identity Not on file Sexual Orientation Not on file documented as of this encounter Plan of Treatment Not on file documented as of this encounter Visit Diagnoses Not on filedocumented in this encounter Care Teams Farm Reporter Relationship Specialty Start Date End Date Dwayne Vidal DO PCP - General 08/10/17 11/26/24 Dwayne Vidal DO [address] [place] [address] PCP - General Internal Medicine 11/27/24 documented as of this encounter Additional Source Comments The information contained in this document represents components of the legal health record. It is not the complete legal health record.[facility]
--- OUTSIDE RECORDS SUMMARY | 2025-06-09 13:58 | XMS_ITS | Encounter Summary ---
Author Organization [facility] Address [address] [facility] [address] [place] [address] Phone Care Team Providers Care Pool Servicer Name Role Phone Dwayne Vidal DO Primary Care Provider [phone] Bigda, Dwayne Montanez DO Unavailable Bigda, Dwayne Montanez DO Primary Care Provider [phone] Encounter Details Date Type Department Care Team (Late st Contact Info) Description 08/20/2019 Transcribe Orders Virtual Department [address] [place] [address] Young, Dwayne Montanez, DO [address] [facility] [place] [address] [place] [address] Periumbilical pain (Primary Dx) Social History Tobacco Use Types Packs/Day Years Used Date Smoking Tobacco: Never Assessed Comments No Sex and Gender Information Value Date Recorded Sex Assigned at Not on file Legal Sex Female 9:55 PM EDT Gender Identity Not on file Sexual Orientation Not on file documented as of this encounter Plan of Treatment Not on file documented as of this encounter Results * US PELVIS LIMITED (08/22/2019 11:09 AM EST) Anatomical Region Laterality Modality Pelvis, Uterus/Adnexa Ultrasound 08/22/2019 12:1 6 PM EST Impressions 08/22/2019 12:19 PM EST No mass or free fluid in the pelvis. Prior hysterectomy and bilateral oophorectomy. POS - [id number] Narrative 08/22/2019 12:19 PM EST EXAM: US PELVIS LIMITED HISTORY: SUPRAPUBIC PAIN EPIGASTRIC PAIN, LUQ ABD PAIN, WITH RADIATION , NAUSEA, R/O PANCREATITIS, complete hysterectomy at least 20 years ago. COMPARISON: 11/20/[address] TECHNIQUE: Transabdominal pelvic ultrasound with grayscale imaging. FINDINGS: The uterus and ovaries have been removed. No mass or free fluid in the pelvis. Normal appearance of the bladder. Procedure Note Miriam Medrano MD - 08/22/2019 EXAM: US PELVIS LIMITED HISTORY: SUPRAPUBIC PAIN EPIGASTRIC PAIN, LUQ ABD PAIN, WITH RADIATION , NAUSEA, R/O PANCREATITIS,complete hysterectomy at least 20 years ago. COMPARISON: 11/20/[address] TECHNIQUE: Transabdominal pelvic ultrasound with grayscale imaging. FINDINGS: The uterus and ovaries have been removed. No mass or free fluid in thepelvis. Normal appearance of the bladder. IMPRESSION: No mass or free fluid in the pelvis. Prior hysterectomy and bilateral oophorectomy. POS - [id number] us Dwayne Vidal DO IM US PELVIS Final Result documented in this encounter Visit Diagnoses Diagnosis Periumbilical pain- Primary Abdominal pain, periumbilic Periumbilical pain Abdominal pain, periumbilic documented in this encounter Care Teams Pool Servicer Relationship Specialty Start Date End Date Dwayne Vidal DO PCP - General 08/10/17 11/26/24 Dwayne Vidal DO [address] [place] [address] PCP - General Internal Medicine 11/27/24 Dwayne Vidal DO [address] [place] [address] [email or web address] Insurance Assigned Provider 04/18/20 08/15/20 documented as of this encounter Additional Source Comments The information contained in this document represents components of the legal health record. It is not the complete legal health record.[facility]
--- OUTSIDE RECORDS SUMMARY | 2025-06-09 13:58 | XMS_ITS | Encounter Summary ---
Author Organization [facility] Address [address] [place] [address] Care Team Providers Care Seal Delivery Vehicle Officer Name Role Phone Richie Cora TAMANNA Primary Care Provider [phone] Encounter Details Date Type Department Care Team (Late st Contact Info) Description 05/18/2021 Abstract [facility] [place] [address] [place], [place] [address] External, Provider Social History Tobacco Use Types [...] documented as of this encounter Care Teams Seal Delivery Vehicle Officer Relationship Specialty Start Date End Date Cora Quiroz APRN [address] [place] [address] [place] [address] PCP - General Family Medicine 05/07/20 05/26/22 documented as of this encounter
--- OUTSIDE RECORDS SUMMARY | 2025-06-09 13:58 | XMS_ITS | Encounter Summary ---
Author Organization [facility] Address [address] [place] [address] [place] [address] Phone Care Team Providers Care Veterinary Practitioner Name Role Phone Benignosunshine Dwayne Lisseth Primary Care Provider [phone] Dwayne Vidal Lisseth Primary Care Provider [phone] Encounter Details Date Type Department Care Team (Late st Contact Info) Description 07/26/2022 Procedure Pass [address] [address] Social History Tobacco Use Types Packs/Day Years Used Date Smoking Tobacco: Former Cigarettes 1 968 - 1969 Smokeless Tobacco: Never Alcohol Use Standard Drinks/Week Comments Never 0 (1 standard drink = 0.6 oz pur e alcohol) Comments No Sex and Gender Information Value Date Recorded Sex Assigned at Not on file Legal Sex Female 9:55 PM EDT Gender Identity Not on file Sexual Orientation Not on file documented as of this encounter Plan of Treatment Not on file documented as of this encounter Visit Diagnoses Not on filedocumented in this encounter Care Teams Veterinary Practitioner Relationship Specialty Start Date End Date Dwayne Vidal DO PCP - General 08/10/17 11/26/24 Dwayne Vidal DO [address] [facility] [place] [address] PCP - General Internal Medicine 11/27/24 documented as of this encounter Additional Source Comments The information contained in this document represents components of the legal health record. It is not the complete legal health record.[facility]
--- OUTSIDE RECORDS SUMMARY | 2025-06-09 13:58 | XMS_ITS | Encounter Summary ---
Author Organization [facility] Address [address] [facility] [address] [place] [address] Phone Care Team Providers Care Loan And Credit Manager Name Role Phone Dwayne Vidal Primary Care Provider [phone] Benignoda, Dwayne Montanez DO Unavailable Benignoda, Dwayne Montanez DO Primary Care Provider [phone] Encounter Details Date Type Department Care Team (Late st Contact Info) Description 08/21/2019 Ancillary Orders Virtual Department [address] [place] [address] Dwayne Vidal, DO [address] [facility] [place] [address] [place] [address] [email or web address] Periumbilical pain; Epigastric pain; LUQ abdominal pain Social History Tobacco Use Types Packs/Day Years Used Date Smoking Tobacco: Never Assessed Comments No Sex and Gender Information Value Date Recorded Sex Assigned at Not on file Legal Sex Female 9:55 PM EDT Gender Identity Not on file Sexual Orientation Not on file documented as of this encounter Plan of Treatment Not on file documented as of this encounter Results * US Abdomen Complete (08/22/2019 11:10 AM EST) Anatomical Region Laterality Modality Abdomen Ultrasound 08/22/2019 12:1 9 PM EST Impressions 08/22/2019 12:30 PM EST 1. Mild LEFT hydronephrosis. No intrarenal calculi. Consider a distal obstructing stone. Consider follow-up with renal and bladder ultrasound. 2. Cholelithiasis. 3. No ultrasound evidence for acute cholecystitis. No biliary ductal dilatation. 4. Fatty infiltration of the liver. 5. Unable to visualize the tail of the pancreas. POS - [id number] Narrative 08/22/2019 12:30 PM EST EXAM: US ABDOMEN COMPLETE HISTORY: PERIUMBILICAL PAIN EPIGASTRIC PAIN, LUQ ABD PAIN, WITH RADIATION , NAUSEA, R/O PANCREATITIS TECHNIQUE: Complete abdominal ultrasound, grayscale and color Doppler. COMPARISON: 04/11/2019 ultrasound. FINDINGS: PROXIMAL IVC: Normal in diameter. ABDOMINAL AORTA: Normal in diameter. LIVER: Normal liver size. Echotexture of the liver is normal. Liver echogenicity is diffusely increased with the appearance of diffuse fatty infiltration. The liver surface is smooth. No liver masses. GALLBLADDER: There are multiple shadowing gallstones. No gallbladder wall thickening. No pericholecystic fluid. Negative sonographic Macdonald sign. BILIARY: No intrahepatic or extrahepatic biliary ductal dilatation. Common bile duct: 4 mm. PANCREAS: The head and body are normal. The tail is obscured, unable to visualize. SPLEEN: Normal size and echogenicity. Measures 8.9 cm. RIGHT KIDNEY: Normal cortical echogenicity and cortical thickness. Measures 11.4 cm in length. No hydronephrosis. No shadowing renal calculi. Upper pole 1.5 cm anechoic cyst. LEFT KIDNEY: Normal cortical echogenicity and cortical thickness. Measures 11.7 cm in length. There is mild hydronephrosis with minimal dilatation of the calyces and renal pelvis. No shadowing renal calculi. OTHER: No abdominal ascites. Procedure Note Miriam Medrano MD - 08/22/2019 EXAM: US ABDOMEN COMPLETE HISTORY: PERIUMBILICAL PAIN EPIGASTRIC PAIN, LUQ ABD PAIN, WITH RADIATION , NAUSEA, R/OPANCREATITIS TECHNIQUE: Complete abdominal ultrasound, grayscale and color Doppler. COMPARISON: 04/11/2019 ultrasound. FINDINGS: PROXIMAL IVC: Normal in diameter. ABDOMINAL AORTA: Normal in diameter. LIVER: Normal liver size. Echotexture of the liver is normal. Liverechogenicity is diffusely increased with the appearance of diffuse fattyinfiltration. The liver surface is smooth. No liver masses. GALLBLADDER: There are multiple shadowing gallstones. No gallbladder wallthickening. No pericholecystic fluid. Negative sonographic Macdonald sign. BILIARY: No intrahepatic or extrahepatic biliary ductal dilatation. Commonbile duct: 4 mm. PANCREAS: The head and body are normal. The tail is obscured, unable tovisualize. SPLEEN: Normal size and echogenicity. Measures 8.9 cm. RIGHT KIDNEY: Normal cortical echogenicity and cortical thickness.Measures 11.4 cm in length. No hydronephrosis. No shadowing renal calculi.Upper pole 1.5 cm anechoic cyst. LEFT KIDNEY: Normal cortical echogenicity and cortical thickness.Measures 11.7 cm in length. There is mild hydronephrosis with minimaldilatation of the calyces and renal pelvis. No shadowing renal calculi. OTHER: No abdominal ascites. IMPRESSION: 1. Mild LEFT hydronephrosis. No intrarenal calculi. Consider a distalobstructing stone. Consider follow-up with renal and bladder ultrasound. 2. Cholelithiasis. 3. No ultrasound evidence for acute cholecystitis. No biliary ductaldilatation. 4. Fatty infiltration of the liver. 5. Unable to visualize the tail of the pancreas. POS - [id number] us Dwayne Vidal DO IMG US ABDOMEN Final Result documented in this encounter Visit Diagnoses Diagnosis Periumbilical pain Abdominal pain, periumbilic Epigastric pain Abdominal pain, epigastric LUQ abdominal pain Abdominal pain, left upper quadrant Periumbilical pain Abdominal pain, periumbilic Epigastric pain Abdominal pain, epigastric LUQ abdominal pain Abdominal pain, left upper quadrant documented in this encounter Care Teams Loan And Credit Manager Relationship Specialty Start Date End Date Dwayne Vidal DO [email or web address] PCP - General 08/10/17 11/26/24 Dwayne Vidal DO [address] [place] [address] [email or web address] PCP - General Internal Medicine 11/27/24 Dwayne Vidal DO [address] [place] [address] [email or web address] Insurance Assigned Provider 04/18/20 08/15/20 documented as of this encounter Additional Source Comments The information contained in this document represents components of the legal health record. It is not the complete legal health record.[facility]
--- OUTSIDE RECORDS SUMMARY | 2025-06-09 13:58 | XMS_ITS | Encounter Summary ---
Author Organization [facility] Address [address] [place] [address] Care Team Providers Care Trade Specialist Name Role Phone RichieCora TAMANNA Primary Care Provider [phone] Encounter Details Date Type Department Care Team (Late st Contact Info) Description 09/13/2021 Scanned Document [facility] Internal Medicine [address] [id number] External, Provider Social History Tobacco Use Types [...] documented as of this encounter Care Teams Trade Specialist Relationship Specialty Start Date End Date Cora Quiroz APRN [address] [place] [address] [place] [address] PCP - General Family Medicine 05/07/20 05/26/22 documented as of this encounter
--- OUTSIDE RECORDS SUMMARY | 2025-06-09 13:58 | XMS_ITS | Clinical Summary ---
Author Organization [facility] Address [address] [address] Phone Care Team Providers Care Equipment Processor Name Role Phone Joseph Hardwick Primary Care Provider [phone] Allergies Active Allergy Reactions Criticality Noted Date Comments Metformin Diarrhea 09/03/2019 Simvastatin Myalgia 09/03/2019 Medications ALPRAZolam (XANAX) 0.5 MG tablet Take 0.5 mg by mouth. Active estradiol (ESTRACE) 0.01 % (0.1 mg/gram) vaginal cream Place vaginally 2 (two) times a day. 3 Active estradiol (YUVAFEM) 10 mcg Tab Yuvafem 10 mcg vaginal tablet Active glimepiride (AMARYL) 1 MG tablet Take 1 mg by mouth daily before breakfast. Active propranolol (INDERAL LA) 160 mg SR capsule propranolol ER 160 mg capsule,24 hr,extended release TAKE 1 CAPSULE BY MOUTH EVERY DAY Active Lactobacillus acidophilus (PROBIOTIC) 10 billion cell Cap Act eliza blood sugar diagnostic (GLUCOSE BLOOD) Strp strips ONETOUCH ULTRA BLUE TEST STRIPS test up to 4 times per day Active blood-glucose (ACCU-CHEK YOLANDE PLUS) Misc meter Accu-Chek Yolande Plus Meter Active blood sugar diagnostic (ACCU-CHEK YOLANDE PLUS) Strp strips Accu-Chek Yolande Plus test strips use as directed 1 to 2 times a day Active blood sugar diagnostic (ACCU-CHEK YOLANDE PLUS) Strp strips Accu-Chek Yolande Plus test strips Active cholecalciferol (VITAMIN D3) 2,000 unit tablet Take 2,000 Units by mouth daily. Active gabapentin (NEURONTIN) 100 MG capsule Take 1 capsule by mouth daily. 4 Active pantoprazole (PROTONIX) 40 MG tablet Take 1 tablet by mouth 2 (two) times a day. 5 Active fluconazole (DIFLUCAN) 200 MG tablet TAKE 1 TABLET EVERY DAY BY ORAL ROUTE WITH MEAL(S) FOR 14 DAYS. 5 Active glimepiride (AMARYL) 4 MG tablet Take 1 tablet by mouth daily. Active lisinopril (PRINIVIL,ZESTRI L) 10 MG tablet TAKE 1 TABLET EVERY DAY BY ORAL ROUTE, FOR HIGH BLOOD PRESSURE Active JANUVIA 100 mg tablet Take 100 mg by mouth daily. Active Active Problems Problem Noted Date Diagnosed Date GERD (gastroesophageal reflux disease) Hypertension 03/10/2025 Hyperlipidemia 03/10/2025 Gastro-esophageal reflux disease with esophagiti s 08/09/2024 Hypopigmentation of skin 08/26/2022 Basal cell carcinoma (BCC) 08/26/2022 Diverticulitis 12/08/2017 Recurrent urinary tract infection 12/08/2017 Type 2 diabetes mellitus 12/08/2017 Encounters Date Type Department Care Team Description 04/08/2025 Transcribe Orders [address] [address] Nita Mccarthy PA Hyperchylomicronemia (Primary Dx); Type 2 diabetes mellitus without complication, unspecified whether custodial insulin use 03/11/2025 9:30 AM EDT - 03/11/2025 9:45 AM EDT Surgery [facility] Endoscopy Admitting Dept Virtual Department [address] [place] [id number] Carlos Harrison MD Not Performed ESOPHAGOGASTRODUODENOSCOPY 03/11/2025 9:30 AM EDT Anesthesia Event [facility] Endoscopy Admitting Dept Virtual Department [address] [place] [address] Manan Rosa MD 03/11/2025 8:27 AM EDT - 03/11/2025 9:00 AM EDT Hospital Encounter [facility] Endoscopy Admitting Dept Virtual Department [address] [place] [id number] Carlos Harrison MD Discharge Disposition: Home or Self Care 03/11/2025 Procedure Pass [facility] Endoscopy Admitting Dept Virtual Department [address] [place] [address] from Last 3 Months Immunizations Immunization Administration Dates Next Due INFLUENZA, SPLIT VIRUS, TRIVALENT PF 08/30/2017 Influenza High-Dose Quadrivalent Preservative Fr ee IM 05/23/2023,06/21/2022 Influenza High-Dose Trivalent Preservative Free IM 07/01/2024 Influenza Quadrivalent Preservative Free IM 10/2017 Influenza Trivalent Adjuvanted Preservative free IM 05/17/2016 Social History Tobacco Use Types Packs/Day Years Used Date Smoking Tobacco: Former Cigarettes 1 1969 Smokeless Tobacco: Never Tobacco Cessation:Counseling Given: Not Answered Alcohol Use Standard Drinks/Week Comments Never 0 [...] Sign Reading Time Taken Comments Blood Pressure 122/72 03/08/2025 1:36 PM EDT Pulse 86 03/08/2025 1:36 PM EDT Temperature 36.7 C (98.1 F) 03/08/2025 1:36 PM EDT Respiratory Rate 20 03/08/2025 1:36 PM EDT Oxygen Saturation 96% 03/08/2025 1:36 PM EDT Inhaled Oxygen Concentration - - Weight 99.8 kg (220 lb) 03/07/2025 10:02 AM EDT Height 166.4 cm (5' 5.5 ) 03/07/2025 10:02 AM ED T Body Mass Index 36.05 03/07/2025 10:02 AM EDT Plan of Treatment Health Maintenance Due Date Last Done Comments Adult Td,Tdap Booster 1955 CREATININE LEVEL 1955 POTASSIUM LEVEL 1955 DEPRESSION SCREENING 1967 PNEUMOCOCCAL VACCINES (50+ years) (1 of 2 - PCV) 1974 COLOGUARD 2000 FIT TEST 2000 FOBT 2000 SIGMOIDOSCOPY 2000 VIRTUAL COLONOSCOPY 2000 ZOSTER VACCINES (1 of 2) 2005 HEMOGLOBIN A1C 08/27/2022 02/24/2022, 02/04, 11/20/2020, Additional history exists LIPID PANEL 01/12/2023 01/12/2022 INFLUENZA VACCINE (#1) 2025 , 05/23/2023, 06/21/2022, Additional history exists DIABETIC EYE EXAM 03/08/2025 COVID-19 VACCINE ( - season) 2025 05/23/2023 BLOOD PRESSURE 09/08/2025 03/08/2025 MAMMOGRAM 12/19/2025 12/20/2023, 08/08, 08/11/2021, Additional history exists SMOKING Hx and SMOKELESS TOBACCO SCREENING 03/08/2026 03/08/2025 COLONOSCOPY 10/06/2029 10/07/2019 COLORECTAL CANCER SCREENING 10/06/2029 RSV VACCINE (1 - 1-dose 75+ series) 2030 OSTEOPOROSIS SCREENING INITIAL (ONE-TIME) Completed 07/27/2020 HEPATITIS C SCREENING Completed 01/12/2022 HEPATITIS A VACCINES Aged Out No long er eligible based on patient's age to complete this topic HIB VACCINES Aged Out No longer eligi ble based on patient's age to complete this topic MENINGOCOCCAL VACCINES (ACWY) Aged Out No longer eligible based on patient's age to complete this topic MENINGOCOCCAL VACCINES (B) Aged Out N o longer eligible based on patient's age to complete this topic Medical Devices Not on file Procedures Procedure Name Priority Date/Time Associated Diagnosis Comments BI MAMMOGRAM SCREENING WITH TOMOSYNTHESIS WITH CAD (BILATERAL) Routine 12/20/2023 11:21 AM EDT Breast screening ENDOSCOPY, COLON 10/07/2019 10:1 5 AM EST from Last 3 Months or Most Recently Relevant to Health Maintenance Results * BI MAMMOGRAM SCREENING WITH TOMOSYNTHESIS WITH CAD (BILATERAL) (12/20/2023 11:21 AM EDT) Anatomical Region Laterality Modality Breast Left, Breast Right, Breast Bilateral Bila teral Mammography 12/21/2023 2:30 PM EDT Impressions 12/21/2023 2:32 PM EDT No mammographic evidence of malignancy in either breast. Annual screening mammography is recommended. BI-RADS 2 BENIGN The patient will be notified of the results and recommendations. Narrative 12/21/2023 2:32 PM EDT BI MAMMOGRAM SCREENING WITH TOMOSYNTHESIS WITH CAD (BILATERAL) Additional patient information: Screening. COMPARISON: Comparison is made with relevant prior imaging. Breast composition: There are scattered areas of fibroglandular density. FINDINGS: Previous needle biopsy in the right breast. No abnormal masses, suspicious calcifications, or other significant findings are identified mammographically in either breast. Procedure Note Andre Curtis MD - 12/21/2023 BI MAMMOGRAM SCREENING WITH TOMOSYNTHESIS WITH CAD (BILATERAL) Additional patient information: Screening. COMPARISON: Comparison is made with relevant prior imaging. Breast composition: There are scattered areas of fibroglandular density. FINDINGS: Previous needle biopsy in the right breast. No abnormal masses, suspicious calcifications, or other significantfindings are identified mammographically in either breast. IMPRESSION: No mammographic evidence of malignancy in either breast. Annual screening mammography is recommended. BI-RADS 2 BENIGN The patient will be notified of the results and recommendations. us Joseph Hardwick DO IMG MG EXAMS Final Result * ENDOSCOPY, COLON (10/07/2019 10:15 AM EST) Narrative Transcriptions Carlos Harrison MD - 10/07/2019 10:15 AM EST Patient Name: Piedad Gorman Attending MD:: CARLOS HARRISON MD, Procedure Date: 10/07/2019 10:15 AM Date of : 1955 Age: 64 Admit Type: Outpatient Gender: Female Room: [place] [address] Referring MD: JOSEPH HARDWICK DO Exam Type: Colonoscopy Indications: High risk colon cancer surveillance: Personalhistory of colonic polyps Medications: Propofol per Anesthesia Procedure: Informed consent was obtained from the patient after discussion of the indications, limitations, alternatives, benefits, and risks of the procedure. Risks specifically discussed include but are not limited to medication reactions, missed lesions, bleeding, perforation, or the need for emergentsurgery. Throughout the procedure, the patient's bloodpressure, pulse, end-tidal CO2, and oxygen saturations were monitored continuously. The Olympus adult variable colonoscope CF-CR129O #4was introduced through the anus and advanced to thececum, identified by appendiceal orifice and ileocecalvalve. The colonoscopy was performed without difficulty.The patient tolerated the procedure well. The quality of the bowel preparation was excellent. The quality ofthe bowel preparation was evaluated using the BBPS([place] Bowel Preparation Scale) with scores of: Right Colon= 3, Transverse Colon = 3 and Left Colon = 3 (entire mucosa seen well with no residual staining, small fragments of stool or opaque liquid). The total BBPS score equals 9. Complications: No immediate complications. Estimated blood loss:None. Findings: The perianal and digital rectal examinations were normal. Multiple small and large-mouthed diverticula werefound in the sigmoid colon and descending colon. Internal hemorrhoids were found during retroflexion. The hemorrhoids were mild. The exam was otherwise normal throughout theexamined colon. Impression: - Diverticulosis in the sigmoid colon and in the descending colon. - Internal hemorrhoids. - No specimens collected. Recommendation: - Discharge patient to home. - Repeat colonoscopy in 5 years for surveillance. CARLOS HARRISON MD, 10/07/2019 10:45:12 AM This report has been signed electronically. Number of Addenda: 0 Note Initiated On: 10/07/2019 10:15 AM Procedure Code(s): --- Professional --- 23916, Colonoscopy, flexible; diagnostic, including collection of specimen(s) by brushing or washing, when performed (separateprocedure) --- Technical --- 28152, Colonoscopy, flexible; diagnostic, including collection of specimen(s) by brushing or washing, when performed (separateprocedure) Diagnosis Code(s): --- Professional --- Z86.010, Personal history of colonic polyps K64.8, Other hemorrhoids K57.30, Diverticulosis of large intestine without perforation or abscess without bleeding --- Technical --- Z86.010, Personal history of colonic polyps K64.8, Other hemorrhoids K57.30, Diverticulosis of large intestine without perforation or abscess without bleeding CPT copyright 2018 [employer]. All rights reserved. The codes documented in this report are preliminary and upon wooden frame builder reviewmay be revised to meet current compliance requirements. Procedure Date: 10/07/2019 10:15:28 AM [address] [place] [address] Joseph Hardwick DO GRAZYNA PROCEDURE ORDERABLES Final Re sult from Last 3 Months or Most Recently Relevant to Health Maintenance Insurance MEDICARE PART A & B [facility] MEDICARE PPO BLUE REPLACEMENT MEDICARE PART A & B MEDICARE PART A & B MEDICARE PART A & B MEDICARE PPO BLUE REPLACEMENT MEDICARE PART A & B [facility] MEDICARE PPO BLUE REPLACEMENT MEDICARE PART A & B Care Teams Equipment Processor Relationship Specialty Start Date End Date Joseph Hardwick DO [address] [place] [id number] [email or web address] PCP - General Internal Medicine 11/27/24 Additional Source Comments The information contained in this document represents components of the legal health record. It is not the complete legal health record.[facility]
--- OUTSIDE RECORDS SUMMARY | 2025-06-09 13:58 | XMS_ITS | Encounter Summary ---
Author Organization [facility] Address [address] [facility] [address] [place] [address] Phone Care Team Providers Care Spinneret Person Name Role Phone Benignosunshine Dwayne Montanez DO Primary Care Provider [phone] Dwayne Vidal DO Primary Care Provider [phone] Encounter Details Date Type Department Care Team ([facility] st Contact Info) Description 10/16/2023 Transcribe Orders Virtual Department [address] [place] [address] Dwayne Vidal DO [address] [facility] [place] [address] [place] [address] [email or web address] Breast screening (Primary Dx) Social History Tobacco Use Types Packs/Day Years Used Date Smoking Tobacco: Former Cigarettes 1 968 - 1970 Smokeless Tobacco: Never Alcohol Use Standard Drinks/Week [...] documented as of this encounter Results * BI MAMMOGRAM SCREENING WITH TOMOSYNTHESIS [...] notified of the results and recommendations. us Dwayne Vidal DO IMG MG EXAMS Final Result documented in this encounter Visit Diagnoses Diagnosis Breast screening- Primary Breast screening, unspecified Breast screening Breast screening, unspecified documented in this encounter Care Teams Spinneret Person Relationship Specialty Start Date End Date Dwayne Vidal DO PCP - General 08/10/17 11/26/24 Dwayne Vidal DO [address] [place] [address] [email or web address] PCP - General Internal Medicine 11/27/24 documented as of this encounter Additional Source Comments The information contained in this document represents components of the legal health record. It is not the complete legal health record.[facility]
--- OUTSIDE RECORDS SUMMARY | 2025-06-09 13:59 | XMS_ITS | Encounter Summary ---
Author Organization [facility] Address [address] [place] [address] Phone Care Team Providers Care Data Entry Representative Name Role Phone Young, Dwayne Montanez DO Primary Care Provider [phone] Bigda, Dwayne A DO Unavailable Bigda, Dwayne A DO Primary Care Provider Encounter Details Date Type Department Care Team (Latest Contact Info) Description 04/12/2019 Transcribe Orders Virtual Department [address] [place] [address] Zenaida Marilin, CORTNEY [place] [place] [address] [email or web address] Epigastric pain (Primary Dx) Social History Tobacco Use [...] documented as of this encounter Results * FL UGI SERIES DOUBLE CONTRAST AND SMALL BOWEL (04/24/2019 10:45 AM EDT) Anatomical Region Laterality Modality Abdomen Radiographic Esperanza ging 04/24/2019 11:3 3 AM EDT Impressions 04/24/2019 11:47 AM EDT Mild presbyesophagus. Tiny hiatal hernia. Several jejunal diverticula. Normal transit time. FLUOROSCOPY TIME: 4 min. 54 sec; 59 IMAGES/FRAMES POS - [id number] Narrative 04/24/2019 11:47 AM EDT EXAM: FL UGI SERIES DOUBLE CONTRAST AND SMALL BOWEL COMPARISON: None. HISTORY: No prior studies for comparison. TECHNIQUE: Turning Sander Operator AP view abdomen, 3 images. Fluoroscopic and radiographic examination of the esophagus, stomach, and small bowel are performed with the patient swallowing effervescent granules mixed with water, thick barium and thin barium. Barium was followed through the small bowel into the cecum. Multiple spot images obtained. FINDINGS: Turning Sander Operator AP view abdomen: Bowel gas pattern is normal. Degenerative endplate marginal spurring throughout the lower thoracic and lumbar spine. No visible radiopaque renal or ureteral calculi. Vascular calcifications in the pelvis. Evidence of presbyesophagus, diminished primary peristalsis with increased tertiary contractions. There is no esophageal mass, stricture, ulcer or mucosal abnormality. No aspiration. Normal vallecula and piriform sinuses. Normal gastric mucosal pattern. No gastric mass or ulcer. There is a tiny hiatal hernia. No gastroesophageal reflux seen. The duodenal bulb and duodenal sweep are normal. Normal anatomic position of the duodenal jejunal flexure. There are several jejunal diverticula. Transit time of approximately 2 hours from the beginning of the study for the barium to transit to the cecum. Normal course and caliber of the small bowel. The terminal ileum is normal. No small bowel mucosal abnormality or stricture. Normal caliber of the small bowel. Procedure Note Miriam Medrano MD - 04/24/2019 EXAM: FL UGI SERIES DOUBLE CONTRAST AND SMALL BOWEL COMPARISON: None. HISTORY: No prior studies for comparison. TECHNIQUE: Turning Sander Operator AP view abdomen, 3 images. Fluoroscopic and radiographicexamination of the esophagus, stomach, and small bowel are performed withthe patient swallowing effervescent granules mixed with water, thickbarium and thin barium. Barium was followed through the small bowel intothe cecum. Multiple spot images obtained. FINDINGS: Turning Sander Operator AP view abdomen: Bowel gas pattern is normal. Degenerative endplate marginal spurring throughout the lower thoracic andlumbar spine. No visible radiopaque renal or ureteral calculi. Vascularcalcifications in the pelvis. Evidence of presbyesophagus, diminished primary peristalsis with increasedtertiary contractions. There is no esophageal mass, stricture, ulcer ormucosal abnormality. No aspiration. Normal vallecula and piriform sinuses.Normal gastric mucosal pattern. No gastric mass or ulcer. There is a tinyhiatal hernia. No gastroesophageal reflux seen. The duodenal bulb andduodenal sweep are normal. Normal anatomic position of the duodenaljejunal flexure. There are several jejunal diverticula. Transit time ofapproximately 2 hours from the beginning of the study for the barium totransit to the cecum. Normal course and caliber of the small bowel. Theterminal ileum is normal. No small bowel mucosal abnormality or stricture.Normal caliber of the small bowel. IMPRESSION: Mild presbyesophagus. Tiny hiatal hernia. Several jejunal diverticula. Normal transit time. FLUOROSCOPY TIME: 4 min. 54 sec; 59 IMAGES/FRAMES POS - [id number] November Zenaida BARR IMLane [place] MISC Final Result documented in this encounter Visit Diagnoses Diagnosis Epigastric pain- Primary Abdominal pain, epigastric Epigastric pain Abdominal pain, epigastric documented in this encounter Care Teams Data Entry Representative Relationship Specialty Start Date End Date Dwayne Vidal DO [email or web address] PCP - General 08/10/17 11/26/24 Dwayne Vidal DO [address] [place] [address] [email or web address] PCP - General Internal Medicine 11/27/24 Dwayne Vidal DO [address] [place] [address] [email or web address] Insurance Assigned Provider 04/18/20 08/15/20 documented as of this encounter Additional Source Comments The information contained in this document represents components of the legal health record. It is not the complete legal health record.[facility]
--- OUTSIDE RECORDS SUMMARY | 2025-06-09 13:59 | XMS_ITS | Encounter Summary ---
Author Organization [facility] Address [address] [facility] [address] [place] [address] Phone Care Team Providers Care Communications Maintainer Name Role Phone Dwayne Vidal DO Primary Care Provider [phone] Young, Dwayne Montanez DO Unavailable Young, Dwayne Montanez DO Primary Care Provider [phone] Encounter Details Date Type Department Care Team (Late st Contact Info) Description 04/12/2019 Ancillary Orders Virtual Department [address] [place] [address] Dwayne Vidal, DO [address] [facility] [address] [place] [address] Breast screening Social History Tobacco Use Types Packs/Day Years [...] MAMMOGRAM SCREENING WITH TOMOSYNTHESIS WITH CAD (BILATERAL) (04/26/2019 8:55 AM EDT) Anatomical Region Laterality Modality Breast Left, Breast Right, Breast Bilateral Bila teral Mammography 04/26/2019 2:46 PM EDT Impressions 04/26/2019 2:47 PM EDT RIGHT breast: No mammographic evidence of malignancy. LEFT breast: No mammographic evidence of malignancy. RECOMMENDED FOLLOWUP: Routine screening mammography is recommended, as clinically appropriate. The results will be sent by mail to the patient. BI-RADS CATEGORY: 1 - Negative. BREAST COMPOSITION: There are scattered fibroglandular densities. POS - [id number] Narrative 04/26/2019 2:47 PM EDT EXAM: BI MAMMOGRAM SCREENING WITH TOMOSYNTHESIS WITH CAD (BILATERAL) HISTORY: Screening. * Annual Breast screening COMPARISON: Prior mammograms, most recent 01/26/2018 and dating back to 2013. TECHNIQUE: Digital breast tomosynthesis was performed in CC and MLO projections. Reconstructed 2-D C-views generated from the tomosynthesis images. Images interpreted in conjunction with R-2 Image Framing Carpenter computer-aided detection (CAD). FINDINGS: BREAST COMPOSITION: There are scattered areas of fibroglandular density. RIGHT breast: There are no suspicious masses, suspicious areas of architectural distortion or suspicious clusters of microcalcifications. LEFT breast: There are no suspicious masses, suspicious areas of architectural distortion or suspicious clusters of microcalcifications. Procedure Note Miriam Medrano MD - 04/26/2019 EXAM: BI MAMMOGRAM SCREENING WITH TOMOSYNTHESIS WITH CAD (BILATERAL) HISTORY: Screening. * Annual Breast screening COMPARISON: Prior mammograms, most recent 01/26/2018 and dating back [id number]. TECHNIQUE: Digital breast tomosynthesis was performed in CC and MLOprojections. Reconstructed 2-D C-views generated from the tomosynthesisimages. Images interpreted in conjunction with R-2 Image Checkercomputer-aided detection (CAD). FINDINGS: BREAST COMPOSITION: There are scattered areas of fibroglandular density. RIGHT breast: There are no suspicious masses, suspicious areas ofarchitectural distortion or suspicious clusters of microcalcifications. LEFT breast: There are no suspicious masses, suspicious areas ofarchitectural distortion or suspicious clusters of microcalcifications. IMPRESSION: RIGHT breast: No mammographic evidence of malignancy. LEFT breast: No mammographic evidence of malignancy. RECOMMENDED FOLLOWUP: Routine screening mammography is recommended, asclinically appropriate. The results will be sent by mail to the patient. BI-RADS CATEGORY: 1 - Negative. BREAST COMPOSITION: There are scattered fibroglandular densities. POS - [id number] Dwayne Vidal DO IMG MG EXAMS Final Result documented in this encounter Visit Diagnoses Diagnosis Breast screening Breast screening, unspecified Breast screening Breast screening, unspecified documented in this encounter Care Teams Communications Maintainer Relationship Specialty Start Date End Date YoungDwayne DO Lisseth [email or web address] PCP - General 08/10/17 11/26/24 Dwayne Vidal DO [address] [place] [address] [email or web address] PCP - General Internal Medicine 11/27/24 Dwayne Vidal DO [address] [place] [address] [email or web address] Insurance Assigned Provider 04/18/20 08/15/20 documented as of this encounter Additional Source Comments The information contained in this document represents components of the legal health record. It is not the complete legal health record.[facility]
--- OUTSIDE RECORDS SUMMARY | 2025-06-09 13:59 | XMS_ITS | Encounter Summary ---
Author Organization [facility] Address [address] [place] [address] Care Team Providers Care Industrial Accountant Name Role Phone RichieCora TAMANNA Primary Care Provider [phone] Encounter Details Date Type Department Care Team (Late st Contact Info) Description 08/19/2021 Abstract [facility] Internal [facility] [place] [address] [place], [place] [id number] External, Provider Social History Tobacco Use Types [...] documented as of this encounter Care Teams Industrial Accountant Relationship Specialty Start Date End Date Cora Quiroz APRN [address] [place] [address] [place] [address] PCP - General Family Medicine 05/07/20 05/26/22 documented as of this encounter
--- OUTSIDE RECORDS SUMMARY | 2025-06-09 13:59 | XMS_ITS ---
Author Name [facility] Organization Unknown History of Medication Use Medication Directions Dispensed Refills Start Date End Date Stat us Apply to affected area on body QD 10/25/2023 completed Take 1 PO twice daily with food for X 10 days 08/04/2023 completed Take 1 tab PO CAMILA for symptom onset, repeat 1 PO tab 72 hours later if needed 08/04/2023 completed Apply to the forearms twice a day for up to 2 weeks. 09/13/2021 completed Apply BID to ears for 10 days 05/20/2021 completed Apply BID to ears for 10 days 05/18/2021 completed amoxicillin 04/10/20 2 5 completed propranolol completed alprazolam completed Januvia completed gabapentin completed Linzess completed lisinopril completed alprazolam (tablet) 0.5 mg comp leted betamethasone, augmented 0.05 % topical ointment active ciclopirox 0.77 % topical cream active desoximetasone 0.05 % topical cream active desoximetasone 0.25 % topical ointment active doxycycline hyclate 100 mg capsule active fluconazole 150 mg tablet active gabapentin (capsule) 100 mg com pleted glimepiride (tablet) 4 mg com pleted Linzess (capsule) 145 mcg comple perla lisinopril (tablet) 20 mg comp leted propranolol (capsule,extended release 24 hr) 160 mg completed Encounters Encounter Type Encounter Reason Primary Diagnosis Location Date Ambulatory [facility] 05/[address] [facility] 04/[address] [facility] 10/[address] [facility] 04/09 Emergency Nausea with vomiting [facility] 11/12/2021 Care Team Organization Name Specialty Phone Email Start Date End [facility] 04/02/2024 [facility] BESSIE HARKINS Primary Care 11/12/2021
--- OUTSIDE RECORDS SUMMARY | 2025-06-09 13:59 | XMS_ITS | Encounter Summary ---
Author Organization [facility] Address [address] [facility] [address] [place] [address] Phone Care Team Providers Care Particleboard Factory Worker Name Role Phone Dwayne Vidal DO Primary Care Provider [phone] Benignoda, Dwayne Montanez DO Unavailable Benignoda, Dwayne Montanez DO Primary Care Provider [phone] Encounter Details Date Type Department Care Team (Late st Contact Info) Description 01/25/2018 Ancillary Orders Virtual Department [address] [place] [address] Young Dwayne Lisseth, DO [address] [facility] [place] [address] [place] [address] Breast screening Social History Tobacco Use Types Packs/Day Years Used Date Smoking Tobacco: Never Assessed Comments Unknown Sex and Gender Information Value Date Recorded Sex Assigned at Not on file Legal Sex Female 9:55 PM EDT Gender Identity Not on file Sexual Orientation Not on file documented as of this encounter Plan of Treatment Not on file documented as of this encounter Results * BI MAMMOGRAM SCREENING WITH TOMOSYNTHESIS WITH CAD (BILATERAL) (01/26/2018 9:55 AM EDT) Anatomical Region Laterality Modality Breast Left, Breast Right, Breast Bilateral Bila teral Mammography 01/26/2018 2:32 PM EDT Impressions 01/26/2018 2:37 PM EDT BILATERAL BREASTS: Benign, no evidence of malignancy. Normal interval follow-up is recommended in 12 months. BI-RADS CATEGORY: 2 - Benign finding. DENSITY: There are scattered fibroglandular densities. POS - CDHMAMA Narrative 01/26/2018 2:37 PM EDT STUDY: Bilateral screening mammography with tomosynthesis and CAD TECHNIQUE: Bilateral full-field digital screening mammography is obtained and read in conjunction with computer-aided detection. Tomosynthesis as well as 2-D C view imaging were obtained. COMPARISON: Comparison made to multiple prior, most recent September 21, 2016, and most remote June 01, 2010. BREAST COMPOSITION: There are scattered areas of fibroglandular density RIGHT BREAST: Micromarker from previous needle core biopsy. No significant masses, calcifications or other abnormalities are seen. LEFT BREAST: No significant masses, calcifications or other abnormalities are seen. Procedure Note Brandon Murrell MD - 01/26/2018 STUDY: Bilateral screening mammography with tomosynthesis and CAD TECHNIQUE: Bilateral full-field digital screening mammography is obtainedand read in conjunction with computer-aided detection. Tomosynthesis aswell as 2-D C view imaging were obtained. COMPARISON: Comparison made to multiple prior, most recent September, and most remote June 01, 2010. BREAST COMPOSITION: There are scattered areas of fibroglandulardensity RIGHT BREAST: Micromarker from previous needle core biopsy. Nosignificant masses, calcifications or other abnormalities are seen. LEFT BREAST: No significant masses, calcifications or otherabnormalities are seen. IMPRESSION: BILATERAL BREASTS: Benign, no evidence of malignancy. Normal intervalfollow-up is recommended in 12 months. BI-RADS CATEGORY: 2 - Benign finding. DENSITY: There are scattered fibroglandular densities. POS - CDHMAMA Dwayne Vidal DO IMG MG EXAMS Final Result documented in this encounter Visit Diagnoses Diagnosis Breast screening Breast screening, unspecified Breast screening Breast screening, unspecified documented in this encounter Care Teams Particleboard Factory Worker Relationship Specialty Start Date End Date Dwayne Vidal DO PCP - General 08/10/17 11/26/24 Dwayne Vidal DO [address] [place] [address] PCP - General Internal Medicine 11/27/24 Dwayne Vidal DO [address] [place] [address] [email or web address] Insurance Assigned Provider 04/18/20 08/15/20 documented as of this encounter Additional Source Comments The information contained in this document represents components of the legal health record. It is not the complete legal health record.[facility]
--- OUTSIDE RECORDS SUMMARY | 2025-06-09 13:59 | XMS_ITS | Encounter Summary ---
Author Organization [facility] Address [address] [facility] [address] [place] [address] Phone Care Team Providers Care Egg Breaker Name Role Phone Dwayne Vidal DO Primary Care Provider [phone] Dwayne Vidal DO Unavailable Dwayne Vidal DO Primary Care Provider Encounter Details Date Type Department Care Team (Latest Contact Info) Description 04/10/2019 Transcribe Orders Virtual Department [address] [place] [address] Marilin Estevez PA-C [address] [place] [place] [address] [email or web address] RUQ pain (Primary Dx) Social History Tobacco Use [...] documented as of this encounter Visit Diagnoses Diagnosis RUQ pain- Primary Abdominal pain, right upper quadrant documented in this encounter Care Teams Egg Breaker Relationship Specialty Start Date End Date Dwayne Vidal DO PCP - General 08/10/17 11/26/24 Dwayne Vidal DO [address] [place] [id number] PCP - General Internal Medicine 11/27/24 Dwayne Vidal DO [address] [place] [address] Insurance Assigned Provider 04/18/20 08/15/20 documented as of this encounter Additional Source Comments The information contained in this document represents components of the legal health record. It is not the complete legal health record.[facility]
--- OUTSIDE RECORDS SUMMARY | 2025-06-09 13:59 | XMS_ITS | Encounter Summary ---
Author Organization [facility] Address [address] [facility] [address] [place] [address] Phone Care Team Providers Care Filling And Stapling Machine Operator Name Role Phone Dwayne Vidal DO Primary Care Provider [phone] Dwayne Vidal DO Unavailable Dwayne Vidal DO Primary Care Provider [phone] Encounter Details Date Type Department Care Team (Late st Contact Info) Description 10/07/2019 Procedure Pass [facility] Endoscopy Admitting Dept Virtual Department [address] [place] [address] Social History Tobacco Use Types Packs/Day Years Used Date Smoking Tobacco: Former Cigarettes 1 8 1969 Smokeless Tobacco: Never Alcohol Use Standard [...] on filedocumented in this encounter Care Teams Filling And Stapling Machine Operator Relationship Specialty Start Date End Date Dwayne Vidal DO PCP - General 08/10/17 11/26/24 Dwayne Vidal DO [address] [place] [address] [place] [address] PCP - General Internal Medicine 11/27/24 Dwayne Vidal DO [address] [place] [address] [email or web address] Insurance Assigned Provider 04/18/20 08/15/20 documented as of this encounter Additional Source Comments The information contained in this document represents components of the legal health record. It is not the complete legal health record.[facility]
--- OUTSIDE RECORDS SUMMARY | 2025-06-09 13:59 | XMS_ITS | Encounter Summary ---
Author Organization [facility] Address [address] [address] Phone Care Team Providers Care Cheese Packer Name Role Phone Young Dwayne Lisseth Primary Care Provider [phone] YoungDwayne Unavailable YoungDwayne DO Primary Care Provider [phone] Encounter Details Date Type Department Care Team (Late st Contact Info) Description 08/20/2019 Transcribe Orders Virtual Department [address] [place] [address] Dwayne Vidal DO [address] [facility] [place] [address] Periumbilical pain (Primary Dx) Social History Tobacco [...] as of this encounter Visit Diagnoses Diagnosis Periumbilical pain- Primary Abdominal pain, periumbilic documented in this encounter Care Teams Cheese Packer Relationship Specialty Start Date End Date Dwayne Vidal DO PCP - General 08/10/17 11/26/24 Dwayne Vidal DO [address] [place] [address] [email or web address] PCP - General Internal Medicine 11/27/24 Dwayne Vidal DO [address] [place] [address] [email or web address] Insurance Assigned Provider 04/18/20 08/15/20 documented as of this encounter Additional Source Comments The information contained in this document represents components of the legal health record. It is not the complete legal health record.[facility]
--- OUTSIDE RECORDS SUMMARY | 2025-06-09 13:59 | XMS_ITS | Encounter Summary ---
Author Organization [facility] Address [address] [facility] [address] [place] [address] Phone Care Team Providers Care Office Services Representative Name Role Phone Dwayne Vidal DO Primary Care Provider [phone] Dwayne Vidal DO Primary Care Provider [phone] Encounter Details Date Type Department Care Team (Latest Contact Info) Description 07/26/2022 Transcribe Orders Virtual Department [address] [place] [address] Nita Mccarthy PA [address] [place] [address] [place] [address] Breast screening (Primary Dx) Social History Tobacco [...] MAMMOGRAM SCREENING WITH TOMOSYNTHESIS WITH CAD (BILATERAL) (08/30/2022 11:31 AM EST) Anatomical Region Laterality Modality Breast Left, Breast Right, Breast Bilateral Bila teral Mammography 09/01/2022 8:44 AM EST Impressions 09/01/2022 12:06 PM EST No mammographic signs of malignancy. Annual screening is recommended. BI-RADS CATEGORY: 2 - Benign finding. DENSITY: There are scattered fibroglandular densities. Narrative 09/01/2022 12:06 PM EST Bilateral mammography is performed in conjunction with computed aided detection. 3-D tomography along with 2-D C view imaging was also performed. Comparison made to previous dated as far back as 02/26/2004 and as recent as 07/26/2021. No suspicious masses, areas of architectural distortion or suspicious microcalcifications. Biopsy marker remains present in the outer right breast. A few diffuse bilateral microcalcifications have benign characteristics. Procedure Note Gio Hanson MD - 09/01/2022 Bilateral mammography is performed in conjunction with computed aideddetection. 3-D tomography along with 2-D C view imaging was alsoperformed. Comparison made to previous dated as far back as 02/26/2004 andas recent as 07/26/2021. No suspicious masses, areas of architectural distortion or suspiciousmicrocalcifications. Biopsy marker remains present in the outer rightbreast. A few diffuse bilateral microcalcifications have benigncharacteristics. IMPRESSION: No mammographic signs of malignancy. Annual screening is recommended. BI-RADS CATEGORY: 2 - Benign finding. DENSITY: There are scattered fibroglandular densities. iNta VASQUEZ IMG MG EXAMS Final Resul t documented in this encounter Visit Diagnoses Diagnosis Breast screening- Primary Breast screening, unspecified Breast screening Breast screening, unspecified documented in this encounter Care Teams Office Services Representative Relationship Specialty Start Date End Date Dwayne Vidal DO PCP - General 08/10/17 11/26/24 Dwayne Vidal DO [address] [place] [address] PCP - General Internal Medicine 11/27/24 documented as of this encounter Additional Source Comments The information contained in this document represents components of the legal health record. It is not the complete legal health record.[facility]
--- OUTSIDE RECORDS SUMMARY | 2025-06-09 13:59 | XMS_ITS | Data Portability ---
Author Organization [facility] Internal Medicine, Telehealth Patient Home Address [address] [place] [address] Assessment No assessment recorded. Plan of Treatment Reminders Order Date Submit Date Provider Last Modified By Organization Details Last Modified Time Details Appointments None recorded. Lab urinalysis complete, reflex culture 2024 025 [facility], [address] [place] [address], [address], 13:06:11 urinalysis, dipstick 2024 025 [facility], [address] [facility], [address], [place], [address], 12:53:40 urinalysis complete, reflex culture 2024 025 [facility], [address] [place] [address], [address], 5 14:17:33 CMP, serum or plasma 2024 025 [facility], [address] [place] [address], [address], 5 14:17:32 hemoglobin A1c, QN, blood 2024 025 [facility], [address] [place] [address], [address], 5 14:17:33 CBC w/ auto diff 2024 025 [facility], [address] [facility], [place], [address], 14:17:33 H pylori urea breath test, co2 infrared 2024 025 [email or web address] [facility] (Centralized Electronic Ordering - All Locations), Patient Can Go To The Location Of Their Choice, [address] 12:08:02 Referral gastroenter ologist referral [address] Gastroenterol [facility]gy, [address] [facility], [address], [place], [address], 08:50:44 Procedures None recorded. Surgeries None recorded. Imaging RF, upper gastrointes tinal tract, w/ contrast PO 2024 025 [facility], [address], [place], [address], 11:42:49 Medication Orders amoxicillin 8[address] mg [address] [facility], [address] [place] [address], [address], 05:01:37 Diflucan 150 mg tablet [address] [facility], [address] [place] [address], [address], 5 05:02:19 trazodone 50 mg tablet 2024 025 [email or web address] [facility] #1972, [address] [place] [address], [address], 5 10:33:24 cephalexin 500 [address] capsule [address] [facility], [address] [place] [address], [address], 5 09:47:36 Januvia 100 mg tablet [address] [facility], [address] [place] [address], [address], 11:41:47 allopurinol 100 mg tablet [address] [facility], [address] [place], [address], 11:41:46 clotrimazol e 1 % vaginal cream 2024 025 [facility] [address] [place] [address], [address], 11:41:46 fluconazole 200 mg tablet [address] [facility], [address] [place] [address], [address], 09:47:47 pantoprazol e 40 mg tablet,yordy yed release 2024 025 [facility], [address] [place] [address], [address], 11:57:23 sucralfate 1 gram tablet 2024 025 [email or web address] [facility], [address] [place] [address], [address], 11:05:21 Patient TargetsNo targets recorded. Patient InstructionsNo instructions recorded. Reason for Referral Imaging Aide Referral for Screening colonoscopy needs colonoscopy (has hx of diverticulitis) Referring Physician: Nita Mccarthy, Internal Medicine, Encounter Date: 04/08/2025 Results Created Date Observation Date Name Description Value Unit Range Abnormal Flag Note LastModifiedBy Organization Detail LastModifiedTime 08/15/19 25 08/15/2024 RF, upper gastr ointe alvin l tract , w/ contr ast PO No observ ation record ed. [facility] [address] [place], [address], 08/16/2024 16:40:35 Result Notes None recorded. Problems Name Problem SNOMED Code Status Onset Date Resolution Date Notes Provider Name and Address Organization Details Recorded Time Adrianna joyceen wan 16123001 Active 2017 Not Available [facility] 3 12:53:23 Divertic ulitis 759542932 Active 2017 Not Available [facility] 3 12:53:23 Diabetes mellitus 16535771 Active 2017 Not Available [facility] 3 12:53:23 Sciatica 50716205 Active 2017 Not Available [facility] 3 12:53:23 Recurren t urinary tract infectio n 602710039 Active 2017 Not Available [facility] 3 12:53:23 Painful urinary bladder spasm 6779466 Completed 201712/11/2017November DAPHNE Estevez [address] [place], [address], [facility] 8 10:54:35 Spasm of urinary bladder 815709784 Active 2017 Not Available [facility] 3 12:53:23 Mixed hyperlip idemia 489632116 Active 2018 Not Available [facility] 3 12:53:23 Atrophic vaginiti s 27657034 Active 2018 Not Available [facility] 3 12:53:23 Gastroes ophageal reflux disease 912626215 Active 2021 Not Available [facility] 3 12:53:23 Type 2 diabetes mellitus 19015068 Active 2022 CHRISTINA PERRY [address] [place], [address], [facility] 5 11:06:31 Bilatera l carpal tunnel syndrome 86569065471 986548 Active 2022 Not Available [facility] 3 12:53:23 Squamous cell carcinom a 192601789 Active 2022 Not Available [facility] 3 12:53:23 Candidia sis of vagina 49346129 Active 2022 CHRISTINA PERRY [address] [place], [address], [facility] 5 10:49:03 Gastro-e sophagea l reflux disease with esophagi tis 032105451 Active 2024 CHRISTINA PERRY [address] [place], [address], [facility] 5 11:51:23 Acute urinary tract infectio n 606928620 Active 2024 CHRISTINA PERRY [address] [place], [address], [facility] 5 10:03:54 Gastropa resis syndrome 938106987 Active 2024 CHRISTINA PERRY [address] [place], [address], [facility] 5 16:41:14 Dysuria 97154923 Active 2024 Dwayne Vidal, DO [address] [place], [address], [facility] 5 13:13:04 Urinary crystal, calcium oxalate 010885661 Active 2024 CHRISTINA PERRY [address] [place], [address], [facility] 5 11:32:45 Insomnia 782672776 Active 2024 CHRISTINA PERRY [address] [place], [address], [facility] 5 11:53:41 Chronic primary bladder pain syndrome Active 2024 CHRISTINA PERRY [address] [place], [address], [facility] 5 10:16:48 Divertic ulitis of sigmoid colon 934882227 Active 2024 CHRISTINA PERRY [address] [place], [address], [facility] Internal [facility] 5 10:42:57 Problem Notes None recorded. Medical Equipment None Reported. Allergies Allergen ID Allergen Name Allergen Category Reaction Reaction Severity Criticality Documentation Date Start Date Code Code System Note Provider Name and Address Organization Details Recorded Time 1187 simvastat in medicatio n myalgias (muscle pain) Not available Not available 12/08/2017 11185 RxNorm Li John clements [facility] Internal [facility] 8 15:41:56 1188 metformin medicatio n diarrhea Not available Not available 12/08/2017 6809 RxNorm Li clements [facility] 8 15:42:14 8918 Cipro medicatio n Not available Not available Not available 11/13/202462894 3 RxNorm CHRISTINA PERRY [address] [place], [address], [facility] Internal [facility] 5 11:59:03 Medications Name Sig Start Date [...] TABLET BY MOUTH EVERY DAY AT BEDTIME F 04/08 completed Not Available Not Available Not Available pravastatin 40 mg tablet Take 1 tablet every day by oral route. 03/26 completed Not Available Not Available Not Available tramadol 37.5 mg-acetamin ophen 325 mg tablet TAKE 2 TABLETS BY MOUTH EVERY 6 HOURS NEEDED 07/25 completed Not Available Not Available Not Available fluconazole 200 mg tablet Take 1 tablet every day by oral route with meal(s) for 14 days. 11/20 completed Not Available Not Available Not [...] completed Not Available Not Available Not Available Diflucan 150 mg tablet Take 1 tablet every day by oral route for 5 days. 04/20 completed Not Available Not Available Not Available [...] BY MOUTH EVERY 8 HOURS IF NEEDED. 2024 active Not Available Not Available Not Avai lable amoxicillin 875 mg tablet Take 1 tablet every 12 hours by oral route for 10 days. 04/25 completed Not Available Not Available Not Available [...] TAKE 1 TABLET BY MOUTH EVERY DAY 2024 active Not Available Not Available Not Avai lable oxybutynin chloride ER 5 mg tablet,exte nded [...] completed Not Available Not Available Not Available hydroxyzine HCl 25 mg tablet TAKE 1 TABLET BY MOUTH THREE TIMES A DAY NEEDED FOR 30 DAYS 04/08 completed Not Available Not Available Not Available [...] in Arterial blood by Pulse oximetry Systolic And Diastolic Provider Name and Address Organization Details Last Updated DateTime 5 163.83 cm 37 kg/m2 64311.6 5 g 86 /min 97 % 97 % 120/80 mm[Hg] Meli Bloom [facility] 5 11:33:27 Date Recorded Body height Body mass index (BMI) Body weight Heart rate Oxygen saturation Oxygen saturation in Arterial blood by Pulse oximetry Systolic And Diastolic Provider Name and Address Organization Details Last Updated DateTime 5 163.83 cm 36.7 kg/m2 62971.5 4 g 72 /min 96 % 96 % 116/74 mm[Hg] Meli Drew [facility] 5 11:11:45 Date Recorded Body height Heart rate Oxygen saturation Oxygen saturation in Arterial blood by Pulse oximetry Systolic And Diastolic Provider Name and Address Organization Details Last Updated DateTime 5 163.83 cm 75 /min 98 % 98 % 128/82 mm[Hg] Meli Kaiser [facility] 5 11:42:16 Date Recorded Body height Body mass index (BMI) Body weight Heart rate Oxygen saturation Oxygen saturation in Arterial blood by Pulse oximetry Systolic And Diastolic Provider Name and Address Organization Details Last Updated DateTime 5 163.83 cm 36.5 kg/m2 09598.5 9 g 78 /min 95 % 95 % 124/86 mm[Hg] Meli Kaiser [facility] 5 09:53:47 Date Recorded Body height Body mass index (BMI) Body weight Oxygen saturation Oxygen saturation in Arterial blood by Pulse oximetry Heart rate Systolic And Diastolic Provider Name and Address Organization Details Last Updated DateTime 5 163.83 cm 36.7 kg/m2 18732.6 2 g 99 % 99 % 65 /min 118/66 mm[Hg] Tiffanie Linton [facility] 5 10:35:38 Social History Question Answer Notes LastModified by Organizat ion Details LastModified Time Tobacco Smoking Status Former Smoker Not Available [facility] 06/09/2020 03:36:24 What Was The Date Of Your Most Recent Tobacco Screening? 04/08/2025 [email or web address] Information not available 04/08/2025 How Many Years Have You Smoked Tobacco? 2 [id number] Information not available 06/09/2020 Sex: Unknown Functional Status None recorded. Mental Status None recorded. Family History Nothing Reported. Medical History No medical history recorded. Gynecological HistoryNo gynecological history recorded. Obstetrics History GPAL:G 0 P 0 0 0 0 Immunizations Vaccine Type Date Status Note Provider Nam e and Address Organization Details Recorded Time Influenza, split virus, quadrivalent, preservative 8 completed Cordell clements [facility] Internal [facility] 05/10/2018 11:42:05 influenza, unspecified formulation [facility] 08:18:29 Past Encounters Encounter ID Performer Location Encounter Start Date Encounter Closed Date Diagnosis/Indication Diagnosis SNOMED-CT Code Diagnosis ICD10 Code Diagnosis IMO Codes Diagnosis Note [id number] Dwayne Vidal [facility] Internal [facility] [address] [facility],[place] [address] 12/11/2017 10:10:13 12/11/2017 12:04:52 Essential hypertension 11797254 I10 good control Diabetes mellitus 663546 09 E11.9 typically, noncomplia nt with appts/labs , but compliant with diet and meds a1c at goal discussed weight management Sciatica 95535948 M54.30 stable with gabapentin sparing use Anxiety 37044814 F41.9 slightly worsened, will temporaril y increase dose to help manage current situation Carpal guanakito patricio syndrome 59794915 G56.03 night splint, nsaids, consider ortho in the future, pt declines ortho at this point [id number] Dwayne Vidal [facility] Internal [facility] [address] [facility], [place] [address] 09/11/2018 10:57:11 09/11/2018 12:08:44 Increased frequency of urination 231989888 R35.0 will culture urine, ua not suggestive of infection Vaginitis 74670830 N76.0 continue treatment for candidal infection if not improvemen t, then can trial estrace cream [id number] Dwayne Vidal [facility] Internal [facility] [address] [facility], [place] [address] 09/28/2018 11:47:50 09/28/2018 14:06:57 Vaginitis 56109517 N76.0 will check urine culture will defer abx as this guide visitor worsen yeast growth if cx pos will rx at that time - low suspicion of uti if diflucan successful , will then start estrace for vaginal dryness to prevent future recurrence s if all fails, recommend seeing AUTOMATIC FANCY MACHINE OPERATOR any signifiant in meantime, please f/u prn Urinary incontinence 165 970211 R32 female stress incontinen ce generally stable Diabetes mellitus 812811 09 E11.9 typically, noncomplia nt with appts/labs , but compliant with diet and meds a1c at goal discussed weight management [id number] Dwayne Vidal [facility] Internal Medicine [address] [place] [address] 11/26/2018 14:21:59 11/26/2018 15:38:26 Mixed hyperlipidemia 036911956 E78.2 Recurrent urinary tract infection 532632903 N39.0 Essential hypertension 70975558 I10 stable Diabetes mellitus 387398 09 E11.9 A1C 7.5 Atrophic vaginitis 23148 000 N95.2 [id number] Dwayne Vidal [facility] Internal Medicine [address] [place] [address] 03/26/2019 14:04:58 03/26/2019 14:48:00 Type 2 diabetes mellitus 64807123 E11.9 a1c 8.0 in UC increase glimepirid e Upper abdominal pain 831 75360 R10.10 resolved as well as chest pain pain did localize to the RUQ, but that has also resolved Right uppe r quadrant pain 417908241 R10.11 declines u/s to check for gallstones /fatty liver will get u/s if pain comes back [id number] Dwayne Vidal [facility] Internal Medicine [address] [place] [address] 04/12/2019 13:36:46 04/12/2019 14:29:45 Excessive belching 430142277 R14.2 Gastroesop hageal reflux disease 725769796 K21.0 Epigastric pain 62690196 R10.13 ? gerd ? h. pylori ? nsaid induced ulcer Non-alcoho lic fatty liver 299711285 K76.0 Common lashawn e duct calculus 007134420 K80.50 [id number] Dwayne Vidal [facility] Internal Medicine [address] [place] [address] 08/05/2019 11:14:57 08/05/2019 11:50:16 Dysuria 60800201 R30.9 Recurred after tx with nitro and TMP/SMX Acute urin heide tract infection 052887537 N39.0 UA shows trace leuk with no nitrite but this is after 2 days of abx still feels frequency and pressure but feels sl better we will cont the bactrim for full 10 days now we are committed to this but its poss a issue when she took one dose then stopped Diabetes mellitus 415320 09 E11.9 sugars hav e been elevated and this is not helping as she know s Atrophic vaginitis 56153 000 N95.2 using estrogen creme now per sintering press operator she needs to make an pt for f/u [id number] Dwayne Vidal [facility] Internal Medicine [address] [facility] [address],Paige [place] Alexis [place] [address] 01/01/2020 14:02:54 01/01/2020 14:42:00 Osteoarthritis of left hip joint 0536438428 42610 M16.12 will treat with prednisone taper, did [...] is still having a problem Diabetes mellitus 703696 09 E13.9 will get bw done [id number] Dwayne Vidal [facility] Internal Medicine [address] [facility] [address] [place] [address] 07/25/2022 14:59:25 07/25/2022 16:34:05 Essential hypertension 26302176 I10 BP is excellent Diabetes mellitus 10351181 will get bw done Active or passive immunization 126435918 Z23 patient advised she is due for flu shot, tdap, pneu & shingles Gastroesop hageal reflux disease 496638984 K21.9 stable Screening mammography 24 760796 Z12.31 [place] [id number] Dwayne Vidal [facility] Internal Medicine [address],[facility] [employer] [place] [address] 04/26/2023 14:21:29 04/26/2023 15:42:57 Diabetes mellitus 45874942 E13.9 d/c nadia villaseñor her lab work was excellent and she has made major advancemen ts Essential hypertension 38964496 I10 BP is excellent Mixed hyperlipidemia 267 622500 E78.2 stable Bilateral carpal tunnel syndrome 1019140284 9534775 G56.03 will hold on ortho referralwi ll let me know when she is ready to go Squamous c ell carcinoma 836085814 C80.1 on her facehas fu with [facility] surgeon [place] Type 2 selma betes mellitus 32327226 E11.9 [id number] Dwayne Vidal [facility] Internal Medicine [address] [facility],[place] [address] 05/24/2024 10:21:44 05/24/2024 10:58:57 Renewal of prescription 215801534 Z76.0 stable Depression screening 171 416113 Z13.31 SCREENING NEGATIVE Screening for malignant neoplasm of colon 425220541 Z12.11 needs f/u with 5 years Type 2 selma betes mellitus 97397638 E11.9 needs f/u lab work Essential hypertension 31073313 I10 BP is excellent [id number] Dwayne Vidal [facility] Internal Medicine [address] [facility],[place] [address] 08/09/2024 11:22:34 08/09/2024 12:15:38 Gastro-esophageal reflux disease with esophagitis 250422055 K21.00 has endoscope scheduled in September, will see if we can get it moved up [id number] Dwayne Vidal [facility] Internal Medicine [address] [place] [address] 09/20/2024 10:59:13 09/20/2024 13:25:24 Urinary crystal, calcium oxalate 702239333 R82.998 will set up with allopurino l Candidiasis of vagina 72 248303 B37.31 will start on dual therapy Type 2 selma betes mellitus 04010634 E11.9 needs f/u lab work [id number] Dwayne Vidal [facility] Internal Medicine [address] [facility],[place] [address] 11/13/2024 11:28:09 11/13/2024 12:21:16 Dysuria 18680490 R30.0 will set up with urinalysis short course of abxwas started on estrogen cream again Insomnia 353081832 G47.0 1 will have her adjust when she takes her ativan Type 2 selma betes mellitus 47371300 E11.9 needs f/u lab workhas f/u appt next [id number] Dwayne Vidal [facility] Internal Medicine [address] [facility],[place] [address] 11/20/2024 09:40:29 11/20/2024 11:06:10 Acute urinary tract infection 857301978 N34.2 resolved Candidiasis of vagina 72 054522 B37.31 will start on dual therapy Type 2 selma betes mellitus 29812232 E11.9 6.9% At low risk for fall 439 380679 Z91.81 negative [id number] Dwayne Vidal, [facility] Internal Medicine [address] [facility],[place] [address] 04/08/2025 10:27:42 04/08/2025 11:59:22 Depression screening 493404243 Z13.31 SCREENING NEGATIVE Diverticul itis of sigmoid colon 137543739 K57.32 329137 will set up with amox for 10 days (has an allergy to cipro) Screening colonoscopy 44 3443147 Z12.11 434016 needs alt GI given dissatisfa ction with [facility] Candidiasis of vagina 72 229879 B37.31 944342 start due to use of amox Health Concerns Section Related Observation LastModified by Organization Detai ls LastModified Time None Recorded Concern Status LastModified by Organization Details LastModified Time None Recorded Advance Directives Directive None Recorded Payers Insurance Date Sequence Insurance Name Policy Number Policy Roy Covered Member ID Roy Member ID Guarantor Name 04/08/2025 1 [place] (MEDICARE REPLACEMENT PPO) [id number] Piedad Gorman [id number] Piedad Gorman 11/26/2018 1 [facility] [id number] Stepan Gorman [id number] Piedad Gorman 07/25/2022 1 [place] [id number] Stepan Gorman [id number] Piedad Gorman 08/09/2024 1 [facility] (MEDICARE REPLACEMENT/AD VANTAGE - PPO) [id number] Piedad Gorman [id number] Piedad Gorman Notes Date Note Type Note Provider Name and Address Organization Details Recorded Time 5 text/html ROS as noted in the HPI ER f/u the patient developed severe chest [...] file, and she is booked out to [facility] send over notice of ER visit to her office with the Upper GI will start on high dose on pantoprazole CHRISTINA PERRY [address] [place], [address], [facility] Internal Medicine 08/09/2024 12:12:13 5 text/html ROS as noted in the HPI c/o uti the patient reports that she is having burning, vaginal discomfort, andthe patient was on cipro and macrobid from UC for dysuria the patient reports that she finished the diflucanwill switch to alt, with topical cream as well had calcium oxalate crystals, start on allopurinol for the crystalsthe patient needs to drink more water increase januvia to 100 mg CHRISTINA PERRY [address] [place], [address], [facility] Medicine 09/20/2024 11:52:01 5 text/html ROS as noted in the HPI c/o dysuria the patient is here for [...] instead needs lab work CHRISTINA PERRY [address] [place], [address], [facility] Medicine 11/13/2024 12:28:57 04/16/202 5 text/html ROS as noted in the HPI f/u 6 mos dysuria: her urine is [...] recheck BW 3 mos CHRISTINA PERRY [address] [place], [address], [facility] Internal Medicine 11/20/2024 10:26:21 5 text/html ROS as noted in the HPI c/o diverticulitis the patient reports yeast infection is resolvedthe patient reports she was diagnosed with the patient having a flare up with LLQ pain and one day of bloody, bright red diarrheathe patient denies fever, chillsthe patient will do NPO, just fluids for 24-hours and increase the patient will need to start amox x 5 days, add extra days if symptoms don't improve needs new GI start on diflucan to avoid repeat yeast infectionotherwise doing wellno other symptoms or issues CHRISTINA PERRY [address] [place], [address], [facility] 04/08/2025 11:04:25 OBGyn Episode No OBEpisode recorded.
--- OUTSIDE RECORDS SUMMARY | 2025-06-09 13:59 | XMS_ITS | Encounter Summary ---
Author Organization [facility] Address [address] [place] [address] Phone Care Team Providers Care It Network Engineer Name Role Phone Young, Dwayne A DO Primary Care Provider [phone] Bigda, Dwayne A DO Unavailable Bigda, Dwayne A DO Primary Care Provider [phone] Encounter Details Date Type Department Care Team (Late st Contact Info) Description 04/11/2019 Ancillary Orders Virtual Department [address] [place] [address] Marilin Estevez, CORTNEY [address] [place] [address] [email or web address] RUQ pain Social History Tobacco Use Types Packs/Day [...] as of this encounter Results * US ABDOMEN LIMITED RIGHT UPPER QUADRANT (04/11/2019 10:32 AM EDT) Anatomical Region Laterality Modality Abdomen Ultrasound 04/11/2019 10:4 8 AM EDT Impressions 04/11/2019 10:50 AM EDT 1. Multiple tiny mobile gallstones. No gallbladder wall thickening or surrounding fluid. 2. Unable to visualize the tail of the pancreas. 3. Markedly increased liver echogenicity representing fatty infiltration. POS - [id number] Narrative 04/11/2019 10:50 AM EDT EXAM: US ABDOMEN LIMITED RIGHT UPPER QUADRANT HISTORY: <N/A> no indication applies (use free text below) TECHNIQUE: Limited abdominal ultrasound was performed of the right upper quadrant with grayscale and color Doppler imaging. COMPARISON: None. FINDINGS: Liver: The liver is markedly increased in echogenicity diffusely. The liver surface is smooth. There is no surface nodularity. Findings most compatible with fatty infiltration. There are no focal liver masses. Gallbladder: Multiple tiny mobile shadowing gallstones. No gallbladder wall thickening or pericholecystic fluid. Negative sonographic Macdonald sign. Biliary tree: No intrahepatic or extrahepatic biliary ductal dilatation. The common duct at the manju hepatis measures 3.5 mm, normal. Pancreas: The head and body of the pancreas appear normal. Unable to visualize the pancreatic tail which is obscured by overlying bowel gas. Right kidney: Survey imaging shows no hydronephrosis. Free fluid: None in the right upper quadrant. Procedure Note Miriam Medrano MD - 04/11/2019 EXAM: US ABDOMEN LIMITED RIGHT UPPER QUADRANT HISTORY: <N/A> no indication applies (use free text below) TECHNIQUE: Limited abdominal ultrasound was performed of the right upperquadrant with grayscale and color Doppler imaging. COMPARISON: None. FINDINGS: Liver: The liver is markedly increased in echogenicity diffusely. Theliver surface is smooth. There is no surface nodularity. Findings mostcompatible with fatty infiltration. There are no focal liver masses. Gallbladder: Multiple tiny mobile shadowing gallstones. No gallbladderwall thickening or pericholecystic fluid. Negative sonographic Murphysign. Biliary tree: No intrahepatic or extrahepatic biliary ductal dilatation.The common duct at the manju hepatis measures 3.5 mm, normal. Pancreas: The head and body of the pancreas appear normal. Unable tovisualize the pancreatic tail which is obscured by overlying bowel gas. Right kidney: Survey imaging shows no hydronephrosis. Free fluid: None in the right upper quadrant. IMPRESSION: 1. Multiple tiny mobile gallstones. No gallbladder wall thickening orsurrounding fluid. 2. Unable to visualize the tail of the pancreas. 3. Markedly increased liver echogenicity representing fattyinfiltration. POS - [id number] November Zenaida BARR IMG US ABDOMEN Final Result documented in this encounter Visit Diagnoses Diagnosis RUQ pain Abdominal pain, right upper quadrant RUQ pain Abdominal pain, right upper quadrant documented in this encounter Care Teams It Network Engineer Relationship Specialty Start Date End Date Dwayne Vidal DO [email or web address] PCP - General 08/10/17 11/26/24 Dwayne Vidal DO [address] [place] [address] [email or web address] PCP - General Internal Medicine 11/27/24 Dwayne Vidal DO [address] [place] [address] [email or web address] Insurance Assigned Provider 04/18/20 08/15/20 documented as of this encounter Additional Source Comments The information contained in this document represents components of the legal health record. It is not the complete legal health record.[facility]
[2025-06-09 14:00] LABS: Alanine Aminotransferase 33 U/L (0-31); Albumin Level 4.4 g/dL (3.5-5.0); Alkaline Phosphatase 85 U/L (39-117); Anion Gap 11 (12-20); Aspartate Amino Transferase 25 U/L (5-31); Blood Urea Nitrogen 28 mg/dL (9-16); Calcium 9.9 mg/dL (8.4-10.2); Carbon Dioxide 23 mmol/L (22-29); Chloride 110 mmol/L (96-108); Cholesterol 208 mg/dL (<200); Estimated Glomerular Filt Rate > 60; HDL Cholesterol 43 mg/dL (>40); Potassium 4.0 mmol/L (3.3-5.1); Sodium 140 mmol/L (135-145); Total Protein 7.2 g/dL (6.5-8.0); Triglycerides 196 mg/dL (<150)
== END 2025-06-09 11:03 | disposition home or self-care (01) ==
LOC: HO.MANLDS 11:02
PROVIDERS: Visit Provider Physician Assistant
DX: E11.8 Type 2 diabetes mellitus with unspecified complications (principal)
CPT/HCPCS: 36415; 80053; 80061; 83036; 85025